=== PATIENT | male | born 1995 | race Caucasian/White ===

== ENCOUNTER 2017-10-19 09:25 | Emergency (ER) | payer MEDICAID, SELFPAY | END 2017-10-19 10:28 | disposition home or self-care (01) | PROVIDERS: Family Provider Family Medicine | DX: J10.1 Influenza due to other identified influenza virus with other respiratory manifestations (principal) | CPT/HCPCS: 71020; 87804; 87880 ==

== ENCOUNTER → 2017-11-25 13:22 | Outpatient (POV) | payer MEDICAID, SELFPAY | PROVIDERS: Family Provider Family Medicine; PCP Family Medicine; Visit Provider Internal Medicine | DX: Z00.00 Encounter for general adult medical examination without abnormal findings (principal) ==

== ENCOUNTER 2017-12-31 10:33 | Outpatient (RCR) | payer MEDICAID, SELFPAY | END 2017-12-31 10:34 | disposition home or self-care (01) | LOC: PT 10:33 | PROVIDERS: Family Provider Family Medicine; PCP Family Medicine; Visit Provider Family Medicine | DX: Z46.89 Encounter for fitting and adjustment of other specified devices (principal) ==

== ENCOUNTER → 2018-01-07 11:17 | Outpatient (POV) | payer MEDICAID, SELFPAY | PROVIDERS: Family Provider Family Medicine; PCP Family Medicine; Visit Provider Physician Assistant Medical | DX: Z00.00 Encounter for general adult medical examination without abnormal findings (principal) ==

== ENCOUNTER → 2018-05-25 10:47 | Outpatient (POV) | payer MEDICAID, SELFPAY | PROVIDERS: Family Provider Family Medicine; PCP Family Medicine; Visit Provider Internal Medicine | DX: Z00.00 Encounter for general adult medical examination without abnormal findings (principal) ==

== ENCOUNTER → 2018-12-08 09:30 | Outpatient (POV) | payer MEDICAID, SELFPAY | PROVIDERS: Visit Provider Internal Medicine | DX: Z00.00 Encounter for general adult medical examination without abnormal findings (principal) ==

== ENCOUNTER → 2019-06-08 09:00 | Outpatient (POV) | payer MEDICAID, SELFPAY | PROVIDERS: Visit Provider Internal Medicine | DX: Z00.00 Encounter for general adult medical examination without abnormal findings (principal) ==

== ENCOUNTER → 2021-01-16 09:09 | Outpatient (CLI) | payer MEDICAID, SELFPAY ==
[2021-01-16 09:42] LABS: ABG Base Excess -2.7 mmol/L (-2.4-2.3); ABG HCO3 21.7 mmhg (22.0-26.0); ABG Oxygen Saturation 97 % (90-100); ABG PCO2 34.2 mmhg (35.0-45.0); ABG PH 7.42 mmol/L (7.35-7.45); ABG PO2 85.1 mmhg (80-100); ABG TCO2 22.8 mmhg (23-27)
[2021-01-16 09:45] LABS: Allen's Test Patient Unable; Oxygen ROOM AIR %; Source Right Radial
== END ==
PROVIDERS: PCP Family Medicine; Visit Provider Internal Medicine Pulmonary Disease
DX: J96.10 Chronic respiratory failure, unspecified whether with hypoxia or hypercapnia (principal); G71.01 Duchenne or Becker muscular dystrophy
CPT/HCPCS: 82803

== ENCOUNTER → 2021-01-23 07:46 | Outpatient (CLI) | payer MEDICAID, SELFPAY | PROVIDERS: PCP Family Medicine; Visit Provider Nurse Practitioner Family | DX: R06.00 Dyspnea, unspecified (principal); R00.0 Tachycardia, unspecified; R00.2 Palpitations; R94.31 Abnormal electrocardiogram [ECG] [EKG]; I42.9 Cardiomyopathy, unspecified; I45.10 Unspecified right bundle-branch block; G71.00 Muscular dystrophy, unspecified | CPT/HCPCS: 93306 ==

== ENCOUNTER → 2021-02-07 13:54 | Outpatient (CLI) | payer MEDICAID, SELFPAY ==
[2021-02-07 14:20] LABS: Basophils # 0.1 K/mm3 (0-0.2); Basophils % 1.4 % (0.1-2.0); Eosinophils # 0.1 K/mm3 (0.0-0.4); Eosinophils % 0.9 % (0.1-12.0); Hematocrit 46.8 % (42.0-52.0); Hemoglobin 15.9 g/dL (14.1-18.0); Lymphocytes # 1.2 K/mm3 (0.7-4.5); Lymphocytes % 20.1 % (10-50); Mean Corpuscular Hemoglobin 31.2 pg (27.0-31.2); Mean Corpuscular Volume 91.7 fl (80-94); Mean Platelet Volume 9.2 fl (7.4-10.4); Monocytes # 0.7 K/mm3 (0.1-1.0); Monocytes % 12.2 % (1.7-9.3); Neutrophils # 3.9 K/mm3 (1.8-7.8); Neutrophils % 65.5 % (37.0-80.0); Platelet Count 246 K/mm3 (142-424); Red Blood Count 5.11 M/mm3 (4.60-6.20)
[2021-02-07 14:47] LABS: Alanine Aminotransferase 22 U/L (12-78); Albumin Level 5.1 g/dl (3.5-5.0); Alkaline Phosphatase 86 U/L (38-126); Anion Gap 12.3 mEq/L (5-15); Aspartate Amino Transferase 33 U/L (17-59); Bilirubin,Indirect 0.4 mg/dL (0.0-0.9); Bilirubin,Total 0.4 mg/dl (0.2-1.3); Bilirubin,Unconjugated 0.4 mg/dL (0.0-1.1); Blood Urea Nitrogen 13 mg/dl (9-20); Calcium 10.2 mg/dl (8.4-10.2); Carbon Dioxide 28 mmol/L (22.0-30.0); Chloride 104 mmol/L (98-107); Estimated Glomerular Filt Rate 588 ml/min (>60); GFR (African American) 712 ML/MIN (>60); Glucose 89 mg/dl (74-100); Potassium 4.3 mmoL/L (3.5-5.1); Sodium 140 mmol/L (136-145); Total Protein,Serum 7.8 g/dl (6.3-8.2)
[2021-02-07 15:53] LABS: Vitamin B12 854 pg/mL (239-931)
[2021-02-07 16:17] LABS: Creatinine,Serum < 0.20 mg/dl (0.66-1.25)
[2021-02-15 16:00] LABS: Vitamin B1 192.6 nmol/L (66.5-200.0)
== END ==
PROVIDERS: Visit Provider Internal Medicine
DX: R06.00 Dyspnea, unspecified (principal); G71.01 Duchenne or Becker muscular dystrophy; I42.9 Cardiomyopathy, unspecified; I45.10 Unspecified right bundle-branch block; R00.0 Tachycardia, unspecified; R00.2 Palpitations; R94.31 Abnormal electrocardiogram [ECG] [EKG]
CPT/HCPCS: 36415; 80048; 80076; 82607; 82746; 84425; 85025

== ENCOUNTER → 2021-09-06 09:55 | Outpatient (CLI) | payer MEDICAID, SELFPAY ==
[2021-09-06 10:37] LABS: Basophils # 0.1 K/mm3 (0-0.2); Basophils % 0.8 % (0.1-2.0); Eosinophils # 0.1 K/mm3 (0.0-0.4); Eosinophils % 0.6 % (0.1-12.0); Hematocrit 35.8 % (42.0-52.0); Hemoglobin 12.2 g/dL (14.1-18.0); Lymphocytes # 0.9 K/mm3 (0.7-4.5); Mean Corpuscular HGB Conc 33.9 g/dL (31.8-35.4); Mean Corpuscular Hemoglobin 32.6 pg (27.0-31.2); Mean Corpuscular Volume 96.1 fl (80-94); Mean Platelet Volume 9.1 fl (7.4-10.4); Monocytes # 0.9 K/mm3 (0.1-1.0); Neutrophils # 7.8 K/mm3 (1.8-7.8); Neutrophils % 80.6 % (37.0-80.0); Platelet Count 319 K/mm3 (142-424); Red Blood Count 3.73 M/mm3 (4.60-6.20); Red Cell Distribution Width 12.6 % (11.5-17.5); White Blood Count 9.7 K/mm3 (4.8-10.8)
[2021-09-06 11:28] LABS: Alanine Aminotransferase 23 U/L (12-78); Albumin Level 4.4 g/dl (3.5-5.0); Albumin/Globulin Ratio 1.5 (1.1-1.8); Alkaline Phosphatase 76 U/L (38-126); Anion Gap 14.9 mEq/L (5-15); Aspartate Amino Transferase 37 U/L (17-59); Bilirubin,Total 0.4 mg/dl (0.2-1.3); Blood Urea Nitrogen 33 mg/dl (9-20); Calcium 9.9 mg/dl (8.4-10.2); Carbon Dioxide 32 mmol/L (22.0-30.0); Chloride 99 mmol/L (98-107); Estimated Glomerular Filt Rate 583 ml/min (>60); GFR (African American) 706 ML/MIN (>60); Globulin 2.9 g/dL (1.3-3.2); Glucose 124 mg/dl (74-100); Potassium 3.9 mmoL/L (3.5-5.1); Sodium 142 mmol/L (136-145); Total Protein,Serum 7.3 g/dl (6.3-8.2)
[2021-09-06 11:34] LABS: C-Reactive Protein 54.8 mg/L (0-4)
[2021-09-06 11:45] LABS: Procalcitonin 0.133 ng/mL (0.0-2.0)
[2021-09-06 12:19] LABS: Erythrocyte Sedimentation Rate 71 mm/hr (0-15)
== END ==
PROVIDERS: Visit Provider Family Medicine
DX: R44.3 Hallucinations, unspecified (principal); G71.01 Duchenne or Becker muscular dystrophy
CPT/HCPCS: 36415; 80053; 84145; 85025; 85651; 86140

== ENCOUNTER → 2022-02-01 11:47 | Outpatient (CLI) | payer MEDICAID, SELFPAY ==
[2022-02-01 12:01] VITALS: BP 116/75; PULSE 83; RESP 20; BMI 16.6
--- NOTE | 2022-02-01 12:57 | HMH.PMCON ---
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 The patient was being managed by the pain clinic in [facility]. However, the physician that was managing the practice moved away. The patient and his mother are in our clinic today seeking management for his current medication regime. Spoke with both of them today in detail. I had a phone consultation with Dr. Trinidad regarding this patient and a plan. The patient is on a plethora of medications. However, the medications we would take over and prescribed are [place] 5 mg 5 mg twice daily G-tube. Gabapentin 625 mg 3 times daily through G-tube. Baclofen milligrams twice daily through G-tube. Will not make any changes in the medications at this time. However, we have agreed to accept the patient for the above medications to be managed. The patient and mother will follow up with Dr. Betancur in 30 days. HPI - Data of Consult Patient: new to practice Consult date: 02/01/22 Requesting Physician: Marlon Rob CRNA Primary Care Provider: Tara Mireles APRN - Consult Narrative Reason for consult: Medication management History of present illness: Mr. Prieto is a 26 year old male CC: Marlon Rob CRNA [facility] History I have reviewed the patient's past medical history: Yes Medical History: Reports:: Cardiomyopathy, Palpitations Denies:: Cancer, Diabetes Mellitus Type 1, Diabetes Mellitus Type 2, MRSA *Have you ever received a pneumonia vaccine?: Yes *Have you received a flu vaccine this season?: No Other Medical History: Reports: Other Laterality Cases: Bilateral: Myringotomy (Ear Tubes) Other Surgeries: Yes: Other (gastrostomy tube) Amputation: No - *Social History Smoking Status: Never smoker Alcohol Intake: never *Occupational Status:: disabled Housing: house Household Members: family *Travel in the last 8 weeks: None Family Hx:: Coronary Artery Disease, Stroke, Diabetes, Heart Attack Meds Home Medications Medication Instructions Recorded Confirmed Type famotidine 20 mg tablet 20 mg PO DAILY 07/25/20 11/21/21 History nutritional supplements 0.08 1 each PO DAILY ml 01/16/21 11/21/21 History gram-2 kcal/mL liquid for tube feed baclofen 10 mg tablet 10 mg PO TID tab 05/16/21 11/21/21 History bisoprolol fumarate 5 mg tablet 5 mg NG-TUBE DAILY tab 10/01/21 11/21/21 History furosemide 20 mg tablet 20 mg NG-TUBE DAILY tab 10/01/21 11/21/21 History gabapentin 250 mg/5 mL oral 400 mg NG-TUBE QID ml 10/01/21 11/21/21 History solution hydrocodone 5 mg-acetaminophen 325 1 tab NG-TUBE Q8H tab 10/01/21 11/21/21 History mg tablet ondansetron HCl 4 mg tablet 4 mg NG-TUBE Q8H PRN 10/01/21 11/21/21 History polyethylene glycol 3350 17 17 g NG-TUBE DAILY 10/01/21 11/21/21 History gram/dose oral powder quetiapine 25 mg tablet 12.5 mg NG-TUBE HS tab 10/01/21 11/21/21 History sacubitril 49 mg-valsartan 51 mg 1 tab NG-TUBE BID #60 tab 10/11/21 11/21/21 Rx tablet Allergies Allergy/AdvReac Type Severity Reaction Status Date / Time No Known Allergies Allergy Verified 11/21/21 11:31 Objective Vital signs: Pulse Resp BP 83 20 116/75 02/01/22 12:01 02/01/22 12:01 02/01/22 12:01 Opioid Risk Tool - Opioid Risk Tool-Male Family hx alcohol abuse: N Family hx illegal drugs: N Family hx rx drug abuse: N Personal hx alcohol abuse: N Personal hx illegal drugs: N Personal hx rx drug abuse: N Age: 16-45 Hx of sexual abuse: N Mental health issues-ADD,OCD,Bipolar, etc: N Hx of depression: N Male Risk Score: 1
== END ==
PROVIDERS: PCP Nurse Practitioner Family; Visit Provider Nurse Anesthetist, Certified Registered
DX: G71.09 Other specified muscular dystrophies (principal); G89.29 Other chronic pain; I42.9 Cardiomyopathy, unspecified; R00.2 Palpitations
CPT/HCPCS: 99202; G0463

== ENCOUNTER → 2022-03-15 12:40 | Outpatient (POV) | payer MEDICAID, SELFPAY ==
[2022-03-15 12:51] VITALS: BP 91/54; PULSE 77; RESP 18; TEMP 36.6; O2SAT 100; BMI 16.6
--- NOTE | 2022-03-15 13:11 | HMH.PAINSOAP ---
[facility] Pain Management SOAP Note Subjective:: Patient is a pleasant 26-year-old white male who we are medically managing for pain and muscle spasms due to muscular dystrophy. We have taken over this patient's medication. He is doing well with his medication except for than hydrocodone. He does not feel like he needs hydrocodone as it is causing increased constipation. Currently is on gabapentin 625 mg 3 times a day through the G-tube, baclofen 10 mg 2 times a day and [place] 5 mg 3 times a day. We will wean him down on the [place]. We will give him 30 pills of hydrocodone for the month. We will continue his gabapentin and baclofen through his G-tube. Objective:: Alert and oriented x3 in no acute distress. He has seen sitting in his wheelchair. Assessment:: Patient with increasing pain with muscular dystrophy due to dystroglycanopathy Plan:: We will renew his medications today. We will continue his gabapentin 625 mg 3 times a day through his G-tube, baclofen 10 mg twice a day through his G-tube and decrease his [place] to 5 mg once a day through the G-tube. We will give a 1 month supply. We will follow-up with him in 1 month. Robbin and drug screen are all appropriate. [facility] History Medical History: Reports:: Cardiomyopathy, Palpitations Denies:: Cancer, Diabetes Mellitus Type 1, Diabetes Mellitus Type 2, MRSA *Have you ever received a pneumonia vaccine?: No *Have you received a flu vaccine this season?: Yes Other Medical History: Reports: Other Laterality Cases: Bilateral: Myringotomy (Ear Tubes) Other Surgeries: Yes: Other (gastrostomy tube) Amputation: No - *Social History Smoking Status: Never smoker Alcohol Intake: never *Occupational Status:: disabled Housing: house Household Members: family *Travel in the last 8 weeks: None Family Hx:: Coronary Artery Disease, Stroke, Diabetes, Heart Attack
== END ==
PROVIDERS: Visit Provider Anesthesiology
DX: G71.09 Other specified muscular dystrophies (principal); G89.29 Other chronic pain
CPT/HCPCS: 99212; G0463

== ENCOUNTER 2022-04-19 00:17 | Emergency (ER) | payer MEDICAID, SELFPAY ==
[2022-04-19] VITALS (11 sets, daily range): BP systolic 81–124; BP diastolic 51–76; PULSE 113–123; RESP 17–18; TEMP 36.8–36.9; O2SAT 96–98; BMI 17.2
[2022-04-19 01:01] LABS: Appearance,Urine CLEAR (Clear); Bilirubin,Urine Negative (Negative); Blood, Urine Negative (Negative); Color,Urine YELLOW (Yellow); Glucose,Urine (UA) Negative (Negative); Ketones,Urine Negative (Negative); Leukocyte Esterase,Urine Negative (Negative); Microscopic, Urine URINE MICROSCOPIC (MICROSCOPIC); Nitrate,Urine Negative (Negative); PH,Urine 6.5 (5.0-8.5); Protein,Urine Negative (Negative); Urobilinogen,Urine 0.2 EU/dl (0.2)
--- NOTE | 2022-04-19 01:40 | HMH.EDNVD ---
ED Disposition Clinical Impression: Acute urinary retention, Muscular dystrophy, Hypokalemia Disposition: Home, Self-Care Condition on Discharge: Good Instructions: DI for Constipation Additional Instructions: call pcp for follow up Referrals: Tara Mireles APRN [Primary Care Provider] - - Critical Care Critical Care Time: No Attestation: On 04/19/22, the high probability of a clinically significant, sudden or life threatening deterioration of the following system(s) required my full and direct attention, intervention and personal management. The time I documented below is in addition to time spent performing reported procedures but includes the following listed in this critical care notation. Medical Decision Making - Medical Records Medical records reviewed: Yes: I reviewed the patient's medical records. - Robbin Inquiry Pt receiving controlled substance: No Vital Signs: 04/19/22 00:18 04/19/22 02:07 04/19/22 02:30 Temperature 98.4 F Temperature Source Oral Pulse Rate 116 H 115 H Pulse Rate [Left Radial] 123 H Respiratory Rate 17 Blood Pressure 102/73 L 107/68 L Blood Pressure [Left Arm] 124/76 Blood Pressure Mean 79 76 Blood Pressure Mean [Left Arm] 92 Blood Pressure Source [Left Arm] Automatic Cuff Blood Pressure Position [Left Arm] Sitting 02 Sat by Pulse Oximetry 96 98 97 Oxygen Delivery Method BiPAP Room Air 04/19/22 03:00 04/19/22 03:30 Temperature Temperature Source Pulse Rate 114 H 115 H Pulse Rate [Left Radial] Respiratory Rate Blood Pressure 100/72 L 93/64 L Blood Pressure [Left Arm] Blood Pressure Mean 78 73 Blood Pressure Mean [Left Arm] Blood Pressure Source [Left Arm] Blood Pressure Position [Left Arm] 02 Sat by Pulse Oximetry 96 97 Oxygen Delivery Method Room Air - Lab Data Lab results reviewed: Yes: I reviewed the patient's lab results. Lab Results 04/19/22 00:59: Urine Color Yellow, Urine Appearance Clear, Urine pH 6.5, Ur Specific [place] 1.010, Urine Protein Negative, Urine Glucose (UA) Negative, Urine Ketones Negative, Urine Blood Negative, Urine Nitrate Negative, Urine Bilirubin Negative, Urine Urobilinogen 0.2, Ur Leukocyte Esterase Negative, Urine WBC Occasional, Urine Bacteria Trace, Urine Mucus 1+ 04/19/22 01:35: WBC 14.3 H, RBC 4.47 L, Hgb 13.8 L, Hct 40.3 L, MCV 90.1, MCH 30.9, MCHC 34.3, RDW 12.2, Plt Count 316, MPV 8.0, Neut % (Auto) 90.1 H, Lymph % (Auto) 2.9 L, [place] % (Auto) 6.5, Eos % (Auto) 0.2, Baso % (Auto) 0.4, Neut # (Auto) 12.9 H, Lymph # (Auto) 0.4 L, [place] # (Auto) 0.9, Eos # (Auto) 0.0, Baso # (Auto) 0.1, Total Counted 100, Neutrophils % (Manual) 93 H, Lymphocytes % (Manual) 5 L, Monocytes % (Manual) 2, Platelet Estimate Normal, RBC Morphology Normal 04/19/22 01:35: Sodium 143, Potassium 2.4 L*, Chloride 101, Carbon Dioxide 23, Anion Gap 21.4 H, BUN 22 H, Creatinine 0.20 L, Estimated Creat Clear 330 H, Estimated GFR 583, Est GFR ( Amer) 706, Glucose 119 H, Calcium 9.7, Total Bilirubin 0.7, AST 59, ALT 28, Alkaline Phosphatase 90, C-Reactive Protein 4.1 H, Total Protein 8.0, Albumin 4.9, Globulin 3.1, Albumin/Globulin Ratio 1.6, Amylase 97 04/19/22 01:35: Lactate 1.1 04/19/22 01:35: Lipase 73 Result diagrams: 04/19/22 01:35 04/19/22 01:35 Orders (Tests/Meds): ED MEDICATIONS Discontinued Medications Generic Name Dose Route Start Last Admin Trade Name Mallory PRN Reason Stop Dose Admin Ondansetron HCl 4 mg 04/19/22 03:32 04/19/22 03:40 Ondansetron 4mg Odt SL 04/19/22 03:33 4 mg ONCE ONE Administration Potassium Chloride 40 meq 04/19/22 02:29 04/19/22 03:32 Potassium Chloride 20meq Tab PO 04/19/22 02:30 Not Given ONCE ONE Potassium Chloride 40 meq 04/19/22 03:30 04/19/22 03:41 Potassium Chloride 20meq/15ml Udc G-TUBE 04/19/22 03:31 40 meq ONCE ONE Administration Sodium Phosphate 133 ml 04/19/22 03:38 04/19/22 03:40 Fleet 133ml Enema RC 04/19/22 03:39 133 ml
[2022-04-19 01:44] LABS: Basophils # 0.1 K/mm3 (0-0.2); Basophils % 0.4 % (0.1-2.0); Eosinophils % 0.2 % (0.1-12.0); Hematocrit 40.3 % (42.0-52.0); Hemoglobin 13.8 g/dL (14.1-18.0); Lymphocytes # 0.4 K/mm3 (0.7-4.5); Lymphocytes % 2.9 % (10-50); Mean Corpuscular HGB Conc 34.3 g/dL (31.8-35.4); Mean Corpuscular Hemoglobin 30.9 pg (27.0-31.2); Mean Corpuscular Volume 90.1 fl (80-94); Monocytes # 0.9 K/mm3 (0.1-1.0); Monocytes % 6.5 % (1.7-9.3); Neutrophils # 12.9 K/mm3 (1.8-7.8); Neutrophils % 90.1 % (37.0-80.0); Platelet Count 316 K/mm3 (142-424); Red Blood Count 4.47 M/mm3 (4.60-6.20); Red Cell Distribution Width 12.2 % (11.5-17.5); White Blood Count 14.3 K/mm3 (4.8-10.8)
[2022-04-19 01:46] LABS: Bacteria,Urine Trace /lpf; Mucus,Urine 1+ /lpf; WBC,Urine Occasional #/hpf (0-3)
[2022-04-19 01:47] LABS: MANUAL DIFFERENTIAL MANUAL DIFFERENTIAL (MANUAL DIFF)
[2022-04-19 01:50] LABS: Lactic Acid 1.1 mmol/L (0.7-2.1)
--- NOTE | 2022-04-19 01:51 | CT_ITS ---
PROCEDURE INFORMATION: Exam: CT Abdomen And Pelvis Without Contrast Exam date and time: 04/19/2022 1:54 AM Age: 26 years old Clinical indication: Other: Acute urinary retention; Prior surgery TECHNIQUE: Imaging protocol: Computed tomography of the abdomen and pelvis without contrast. Radiation optimization: All CT scans at this facility use at least one of these dose optimization techniques: automated exposure control; mA and/or kV adjustment per patient size (includes targeted exams where dose is matched to clinical indication); or iterative reconstruction. COMPARISON: No relevant prior studies available. FINDINGS: Tubes, catheters and devices: Percutaneous gastrostomy tube in place. Liver: Normal. Gallbladder and bile ducts: Cholelithiasis. Pancreas: Normal. Spleen: Normal. Adrenal glands: Normal. No mass. Kidneys and ureters: Mild right hydronephrosis and proximal right hydroureter, likely secondary to extrinsic compression by stool-filled distal sigmoid colon and rectal. Stomach and bowel: Large amount of stool within the distal sigmoid colon and rectal vault, with mild rectal wall edema suggesting fecal impaction. No evidence of obstruction. Few loops of nondilated, gas and fluid-filled small bowel and proximal colon, possibly enteritis/diarrhea. Appendix: No evidence of appendicitis. Intraperitoneal space: Unremarkable. No free air. No significant fluid collection. Vasculature: Unremarkable. No abdominal aortic aneurysm. Lymph nodes: Unremarkable. No enlarged lymph nodes. Urinary bladder: Urinary bladder partially decompressed by Jansen catheter. Reproductive: Unremarkable as visualized. Bones/joints: Abnormal pelvic bony morphology, most compatible with chronic neuromuscular disorder. Partially visualized multilevel posterior Low rods. Soft tissues: See Bones/joints finding. IMPRESSION: 1. Mild right hydronephrosis and proximal right hydroureter, likely secondary to extrinsic compression by stool-filled distal sigmoid colon and rectal. 2. Large amount of stool within the distal sigmoid colon and rectal vault, with mild rectal wall edema suggesting fecal impaction. No evidence of obstruction. 3. Few loops of nondilated, gas and fluid-filled small bowel and proximal colon, possibly enteritis/diarrhea.
--- NOTE | 2022-04-19 01:53 | PC.NURSE ---
3x nursing staff attempted to place IV cath and have not been successful. aware. Lab able to obtains labs after several attempts. Pediatric tubes and culture used to collect.
--- NOTE | 2022-04-19 01:56 | PC.NURSE ---
pt to ct scan
[2022-04-19 01:58] LABS: Chloride 101 mmol/L (98-107); Sodium 143 mmol/L (136-145)
[2022-04-19 02:01] LABS: Alanine Aminotransferase 28 U/L (12-78); Albumin Level 4.9 g/dl (3.5-5.0); Albumin/Globulin Ratio 1.6 (1.1-1.8); Alkaline Phosphatase 90 U/L (38-126); Amylase 97 U/L (30-110); Anion Gap 21.4 mEq/L (5-15); Aspartate Amino Transferase 59 U/L (17-59); Bilirubin,Total 0.7 mg/dl (0.2-1.3); Blood Urea Nitrogen 22 mg/dl (9-20); Calcium 9.7 mg/dl (8.4-10.2); Carbon Dioxide 23 mmol/L (22.0-30.0); Creatinine Clearance Estimated 330 mL/min (50-200); Estimated Glomerular Filt Rate 583 ml/min (>60); GFR (African American) 706 ML/MIN (>60); Globulin 3.1 g/dL (1.3-3.2); Glucose 119 mg/dl (74-100)
[2022-04-19 02:02] LABS: Lipase 73 U/L (23-300)
[2022-04-19 02:07] LABS: C-Reactive Protein 4.1 mg/L (0-4)
[2022-04-19 02:10] LABS: Potassium 2.4 mmoL/L (3.5-5.1)
--- NOTE | 2022-04-19 02:10 | PC.NURSE ---
critical potassium reported to Dr. Tyler
[2022-04-19 03:15] LABS: Lymphocytes % 5 % (10-50); Monocytes % 2 % (2-9); Neutrophils % 93 % (42-76); Total Cells Counted 100
[2022-04-19 03:16] LABS: Platelet Estimate Normal; RBC Morphology Normal
--- NOTE | 2022-04-19 05:51 | PC.NURSE ---
Tijerina care and education to mother. Educated on the d/c of tijerina cath in 24 hr.
--- NOTE | 2022-04-19 05:52 | PC.NURSE ---
ENEMA ADMINISTERED WITH LARGE AMOUNT OF STOOL NOTED. PT TOLERATED WELL.
--- NOTE | 2022-04-19 05:57 | PC.NURSE ---
INSTRUCTION FOR CATHETER CARE AND REMOVAL GIVEN TO MOTHER- WHO ACTS PATIENTS CAREGIVER.
== END 2022-04-19 06:02 | disposition home or self-care (01) ==
PROVIDERS: Emergency Provider Emergency Medicine; PCP Nurse Practitioner Family
DX: K59.00 Constipation, unspecified (principal); R33.8 Other retention of urine; G71.00 Muscular dystrophy, unspecified; E87.6 Hypokalemia
CPT/HCPCS: 36415; 51702; 74176; 80053; 81001; 82150; 83605; 83690; 85007; 85025; 86140; 87040; 99284

== ENCOUNTER → 2022-06-04 10:22 | Outpatient (CLI) | payer MEDICAID, SELFPAY ==
--- NOTE | 2022-06-04 10:26 | XR_ITS ---
FINAL REPORT CLINICAL HISTORY: CHRONIS CONSTIPATION FINDINGS: Flat and upright views of the abdomen were obtained. There is a nonobstructive bowel gas pattern. There is a large amount of retained stool in the rectum which is worrisome for fecal impaction/ constipation. There is no free air. There is no abnormal calcification. Spinal rods are present. A presumed G-tube or J tube is present. IMPRESSION: Findings are worrisome for fecal impaction/constipation. Reviewed, Interpreted and Dictated by Yosef Whitehead III, MD Transcribed by Irlanda Ferrell Authenticated and [facility]
== END ==
PROVIDERS: PCP Nurse Practitioner Family; Visit Provider Physician Assistant Medical
DX: K59.09 Other constipation (principal)
CPT/HCPCS: 74019

== ENCOUNTER → 2022-06-17 13:14 | Outpatient (CLI) | payer MEDICAID, SELFPAY ==
--- NOTE | 2022-06-17 13:15 | CA_ITS ---
APPROVED REPORT EXAM: Comprehensive 2D, Doppler, and color-flow Echocardiogram Internal Grinder: Juliana Christine RVT Ht: 5 ft 1 in Wt: 98lbs BSA: 1.40 BP: 78/45 mmHg Indications: CM,MUSCUALR DYSTROPHY,RBBB,ABN EKG TDS-PT SCANNED IN MOTORIZED W/C,LIMITED WINDOWS,BEST EXAM POSSIBLE 2D Dimensions LVOT 1.77 cm (M/F) 1.5-2.5 M-Mode Dimensions RVDd 1.21 cm (0.9-2.6) LA Diam 1.73 cm (1.9-4.0) LVDd 4.37 cm (3.5-5.7) Ao Diam 2.39 cm (2.0-3.7) LVDs 3.27 cm (3.5-5.7) IVSd 0.43 cm (0.6-1.1) PWd 0.67 cm (0.6-1.1) EF (Teich) 49.90% FS 25.20% EDV (Teich) 86.30 mL ESV (Teich) 43.20 mL LV Diastology E Decel Time 150.00 (160-240 msec) E/A Ratio 1.4 Aortic Valve AO Peak GR. 2.40 mmHg Mitral Valve MV E Max Berny. 104.00 (40-130 cm/s) MV A Velocity 73.00 (40-130 cm/s) E/A Ratio 1.43 MV Decel. Time 150.00 (160-240 ms) MV PHT 44.00 ms Pulmonary Valve PV Peak Velocity 73.00 (50-150 cm/s) Left Ventricle Technically very limited and difficult study, valvular structures are not well visualized. Left atrium appears to be normal size, left ventricle appears to be normal, estimated ejection fraction 50% in the obtained views. Diastolic parameters are inconclusive. Right Ventricle Right atrium and right ventricle are normal size and contractility. Aortic Valve Aortic valve is grossly normal. Mitral Valve Mitral valve is poorly visualized. Tricuspid Valve Tricuspid valve is poorly visualized. Pulmonic Valve Pulmonic valve is poorly visualized. Great Vessels Aortic root is normal size. Inferior vena cava is mildly dilated without significant inspiratory collapse. Pericardium No significant pericardial effusion noted. Conclusion 1. Technically extremely difficult and poor study, valvular structures are poorly visualized. Normal left ventricular size, estimated ejection fraction is probably 50% with no regional wall motion abnormality. 2. No significant pericardial effusion. 3. Inferior vena cava is mildly dilated without significant inspiratory collapse. Electronically signed by : Maikel Ballard MD 06/17/2022 20:39:48
== END ==
PROVIDERS: PCP Nurse Practitioner Family; Visit Provider Internal Medicine
DX: I42.9 Cardiomyopathy, unspecified (principal); I45.10 Unspecified right bundle-branch block; G71.01 Duchenne or Becker muscular dystrophy; R94.31 Abnormal electrocardiogram [ECG] [EKG]
CPT/HCPCS: 93306

== ENCOUNTER → 2023-01-06 10:34 | Outpatient (CLI) | payer MEDICAID, SELFPAY ==
--- NOTE | 2023-01-06 10:40 | XR_ITS ---
FINAL REPORT CLINICAL HISTORY: chronic constipation COMPARISON: 06/04/2022 FINDINGS: A single view of the abdomen was obtained. There is a large amount of retained stool in the rectum which measures up to 11 cm. No dilated loops of bowel are seen proximal to the rectum. A gastrostomy tube is in place. Fusion hardware is noted of the spine. IMPRESSION: 1. Nonobstructive bowel gas pattern. 2. Large amount of retained stool in the rectum measuring up to 11 cm. Reviewed, Interpreted and Dictated by Won Vazquez MD Transcribed by Donna Cameron Authenticated and . [facility]
== END ==
PROVIDERS: PCP Nurse Practitioner Family; Visit Provider Physician Assistant Medical
DX: K59.09 Other constipation (principal)
CPT/HCPCS: 74018

== ENCOUNTER → 2023-06-24 11:00 | Outpatient (CLI) | payer MEDICAID, SELFPAY ==
--- NOTE | 2023-06-24 11:02 | CA_ITS ---
APPROVED REPORT EXAM: Comprehensive 2D, Doppler, and color-flow Echocardiogram Oven Baker: Meagan Wells, RCS, RVS Ht: 5 ft 1 in Wt: 101lbs BSA: 1.41 BP: 101/75 mmHg Indications: CM, RBBB, Muscular dystrophy-WC bound, Palpitations Echo Enhancing Agent Comments: Lmited window due to patient factors. 2D Dimensions Aortic Root 2.99 cm M: 3.1 - 3.7 LA Volume 7.90 mL Left Atrium 2.27 cm M: 3.0 - 4.0 LA Volume Index 5.60 mL/m2 (M/F) 16-34 LVOT 1.97 cm (M/F) 1.5-2.5 M-Mode Dimensions RVDd 0.86 cm (0.9-2.6) LVDd 4.86 cm (3.5-5.7) Ao Diam 3.28 cm (2.0-3.7) LVDs 3.94 cm (3.5-5.7) IVSd 0.62 cm (0.6-1.1) PWd 0.64 cm (0.6-1.1) EF (Teich) 39.00% EPSs 1.13 cm FS 18.90% EDV (Teich) 110.70 mL TAPSE 2.02 (<1.7) ESV (Teich) 67.50 mL LV Diastology E Decel Time 167.00 (160-240 msec) E/A Ratio 1.57 MED E' 10.70 (< 7 cm/sec) MED A' 9.20 cm/s E'/MED E' Ratio 9.07 (>14) LAT E' 14.00 (<10 cm/sec) LAT A' 9.20 cm/s E/LAT E' Ratio 6.94 (>14) Aortic Valve LVOT Max 86.00 (70-110 cm/s) LVOT VTI 15.60 cm AoV Peak Berny. 83.00 (50-130 cm/s) AO Peak GR. 2.70 mmHg AO Mean GR. 1.40 (<5 mmHg) AO VTI 14.24 (18-25 cm) XAVIER (VTI) 3.34 (2.5-4.5 cm2) Mitral Valve MV A Velocity 62.00 (40-130 cm/s) E/A Ratio 1.57 MV Decel. Time 167.00 (160-240 ms) Pulmonary Valve PV Peak Velocity 73.00 (50-150 cm/s) Left Ventricle The left ventricle is normal size. The left ventricular systolic function is normal. The left ventricular ejection fraction is within the normal range. There is normal left ventricular wall thickness. There is normal LV segmental wall motion. The left ventricular diastolic function is normal. LVEF is 55% Right Ventricle The right ventricle is normal size. The right ventricular systolic function is normal. Atria The left atrial cavity is small. The right atrium size is normal. Aortic Valve The aortic valve opens well. There is no aortic valvular stenosis. No aortic regurgitation is present. Mitral Valve The mitral valve is normal in structure. No evidence of mitral valve stenosis. Trace Mitral Regurgitation. Tricuspid Valve The tricuspid valve leaflets are thin and pliable. Trace tricuspid regurgitation. There is insufficient TR jet to estimate RVSP. Pulmonic Valve The pulmonary valve is normal in structure. Trace pulmonic regurgitation. Great Vessels The aortic root is normal in size. The ascending aorta is not well visualized. IVC is normal in size and collapses >50% with inspiration. Pericardium There is no pericardial effusion. Other Information Study Quality: Technically Difficult Conclusion This is a technically difficult study due to inability to position the patient. Normal biventricular systolic function. No significant valvular disease. Electronically signed by : Arlene Cohen, 06/24/2023 21:53:42
== END ==
PROVIDERS: PCP Nurse Practitioner Family; Visit Provider Internal Medicine
DX: I42.9 Cardiomyopathy, unspecified (principal)
CPT/HCPCS: 93306

== ENCOUNTER 2023-11-17 10:13 | Outpatient (CLI) | payer MEDICAID, SELFPAY ==
[2023-11-17 11:18] LABS: Hemoglobin A1C 4.8 % (4.0-6.0)
== END 2023-11-17 23:59 ==
LOC: LAB 10:14
PROVIDERS: PCP Family Medicine; Visit Provider Physician Assistant Medical
DX: G71.01 Duchenne or Becker muscular dystrophy (principal); K31.84 Gastroparesis; R73.9 Hyperglycemia, unspecified
CPT/HCPCS: 36415; 83036

== ENCOUNTER 2024-09-27 09:22 | Outpatient (CLI) | payer MEDICAID, SELFPAY ==
--- NOTE | 2024-09-27 09:34 | CA_ITS ---
APPROVED REPORT EXAM: Comprehensive 2D, Doppler, and color-flow Echocardiogram Mortar Man: Liz Galeano RT(R) Ht: 5 ft 1 in Wt: 125lbs BSA: 1.55 BP: 124/82 mmHg Indications: SOA, palpitations, muscular dystrophy. 2D Dimensions LVEF (Awad's) 65.30 % M: 52 - 72 LV Volume 32.60 mL M: 62 - 150 LV Volume Index 21.0 mL/m2 M: 34 - 74 EF AP4 60.70 % EF AP2 73.0 % EF BP 65.3 % GL Strain -14.3 % M-Mode Dimensions RVDd 1.51 cm (0.9-2.6) LVDd 3.84 cm (3.5-5.7) LVDs 2.62 cm (3.5-5.7) IVSd 0.73 cm (0.6-1.1) PWd 0.64 cm (0.6-1.1) EF (Teich) 60.50% FS 31.80% EDV (Teich) 63.50 mL ESV (Teich) 25.10 mL Left Ventricle The left ventricle is normal size. The left ventricular systolic function is normal. The left ventricular ejection fraction is within the normal range. There is increased LV wall thickness. There is normal LV segmental wall motion. The left ventricular diastolic function is normal. LVEF is 55%. Right Ventricle The right ventricle is normal size. The right ventricular systolic function is normal. Atria The left atrial cavity is small. There is an external compression by a solid mass into the left atrial cavity. The right atrium size is normal. There is no Doppler evidence of interatrial shunt. Aortic Valve The aortic valve opens well. There is no aortic valvular stenosis. Trace aortic regurgitation. Mitral Valve The mitral valve is normal in structure. No evidence of mitral valve stenosis. There is no mitral valve regurgitation noted. Tricuspid Valve The tricuspid valve leaflets are thin and pliable. Trace tricuspid regurgitation. There is insufficient TR jet to estimate RVSP. Pulmonic Valve The pulmonary valve is normal in structure. Trace pulmonic regurgitation. Great Vessels The aortic root is normal in size. The ascending aorta is not well-visualized. IVC is normal in size and collapses >50% with inspiration. Pericardium There is no pericardial effusion. Other Information Study Quality: Fair Conclusion Normal biventricular systolic function. No significant valvular stenosis or regurgitation. The left atrial cavity is small. There is an external compression by a solid mass into the left atrial cavity. Review of prior TTE and CTA abdomen/pelvis from 2021 demonstrates the left atrial compression is chronic, and is likely due to spinal deformity with vertebral compression into the left atrium. However, other etiologies of left atrial compression cannot be entirely ruled out. Electronically signed by : Arlene Cohen MD 09/27/2024 11:15:53
== END 2024-09-27 23:59 | disposition home or self-care (01) ==
PROVIDERS: PCP Family Medicine; Visit Provider Internal Medicine
DX: I42.8 Other cardiomyopathies (principal); R00.2 Palpitations; R00.0 Tachycardia, unspecified; R94.31 Abnormal electrocardiogram [ECG] [EKG]; I45.10 Unspecified right bundle-branch block; R06.00 Dyspnea, unspecified; G71.01 Duchenne or Becker muscular dystrophy
CPT/HCPCS: 93270; 93306

== ENCOUNTER 2024-09-29 14:21 | Outpatient (CLI) | payer MEDICAID, SELFPAY ==
--- NOTE | 2024-09-29 14:24 | CA_ITS ---
FINAL REPORT TECHNIQUE: Color Doppler, duplex Doppler and beebe scale sonography of the bilateral neck vasculature was performed. Velocities were measured in the carotid arteries. Stenosis evaluation based on velocity criteria. CLINICAL HISTORY: PT HAS MUSCULAR DYSTROPHY,PT HEARS HEARTBEAT IN HIS RIGHT EAR COMPARISON: None FINDINGS: The peak systolic velocity of the right common carotid artery is 90 cm/sec and internal carotid artery 87 cm/sec. The diastolic velocity in the internal carotid artery is 34 cm/sec. The ICA/CCA ratio is 1.07. Visually, no significant plaque is seen. These findings are consistent with less than 50% stenosis. The external carotid artery is patent. The right vertebral artery was not visualized secondary to patient's positioning in a motorized chair. The peak systolic velocity of the left common carotid artery is 114 cm/sec and internal carotid artery 94 cm/sec. The diastolic velocity in the internal carotid artery is 33 cm/sec. The ICA/CCA ratio is 0.8. Visually, no significant plaque is seen. These findings are consistent with less than 50% stenosis. The external carotid artery is patent. The left vertebral artery was not visualized secondary to patient positioning in a motorized chair. IMPRESSION: No evidence of significant carotid stenosis. The vertebral arteries were not visualized secondary to patient positioning in a motorized chair. If indicated, CTA or catheter angiography could further evaluate. Reviewed, Interpreted and Dictated by Yosef Whitehead III, MD Transcribed by Gisella Mcgowan Authenticated and [facility]
--- OUTSIDE RECORDS SUMMARY | 2024-09-29 14:24 | XMS_ITS | Encounter Summary ---
Author Organization [facility] Address [address] [place] [address] Care Team Providers Care Hosiery Pairer Name Role Phone Rhys Butts MD Primary Care Provider + Reason for Visit * Reason Onset Date Comments Med Refill 04/18/2024 Encounter Details Date Type Department Care Team (Late st Contact Info) Description 04/18/2024 Refill [facility] [address] [place] [address] Rhys Butts MD [address] [place] [address] Anxiety about health (Primary Dx) Social History Tobacco Use Types Packs/Day Years Used Date Smoking Tobacco: Never Smokeless Tobacco: Never Alcohol Use Standard Drinks/Week Comments Never 0 (1 standard drink = 0.6 oz pur e alcohol) Abuse Screen Answer Date Recorded Unsafe at Home or Work/School Not on file Feels Threatened by Someone? Not on file Does Anyone Keep You from Co ntacting Others or Doint Things Outside the Home? Not on file 12/02/2023 Physical Sign of Abuse Present Not on file 0 12/02/2023 Housing Stability Answer Date Recorded Current Living Arrangements Not on file 11/20 Potentially Unsafe Housing Conditions Not on rashad e 12/02/2023 Family and Community Support Answer Toan e Recorded Help with Day-to-Day Activities Not on file 12/02/2023 Lonely or Isolated Not on file 12/02/2023 Employment Answer Date Recorded Do you want help finding or keeping work or a rudi b? Not on file 12/02/2023 Disabilities Answer Date Recorded Concentrating, Remembering, or Making Decisions Difficulty Not on file 12/02/2023 Doing Errands Independently Difficulty Not on fi le 12/02/2023 Education Answer Date Recorded Help with school or training? Not on file Preferred Language Not on file 12/02/2023 PHQ-2 Answer Date Recorded Retired PHQ-9: Brief Depression Severity Measure Score 0 01/05/2024 Sex and Gender Information Value Date Recorded Sex Assigned at Not on file Legal Sex Male 9:36 AM EST Gender Identity Not on file Sexual Orientation Not on file documented as of this encounter Plan of Treatment Not on file documented as of this encounter Visit Diagnoses Diagnosis Anxiety about health- Primary documented in this encounter Care Teams Hosiery Pairer Relationship Specialty Start Date End Date Rhys Butts MD [address] [place] [address] PCP - General Family Medicine 01/05/24 documented as of this encounter
--- OUTSIDE RECORDS SUMMARY | 2024-09-29 14:24 | XMS_ITS | Encounter Summary ---
Author Organization [facility] Address [address] [place] [id number] Care Team Providers Care Dentistry Professor Name Role Phone Unavailable Primary Care Provider Unavailabl e Encounter Details Date Type Department Care Team (Late st Contact Info) Description 01/27/2023 12:00 PM EDT Evaluation [facility] OP Occupational Therapy [address] [facility] [address] [place] [address] Tara Mireles, RAZA [address] [place] [address] [place] [id number] Leanne Cardenas, OTR/L [address] [facility] [address] [place] [address] Muscular dystrophy (HCC) (Primary Dx) Social History Tobacco Use Types Packs/Day Years Used Date Smoking Tobacco: Never Assessed Sex and Gender Information Value Date Recorded Sex Assigned at Not on file Legal Sex Male 12:47 PM CDT Gender Identity Not on file Sexual Orientation Not on file documented as of this encounter Progress Notes * Leanne Cardenas OTR/L - 01/27/2023 12:00 PM EDT Images from the original note were not included. OUTPATIENT THERAPY SERVICES SEATING AND MOBILITY EVAL 01/27/2023 Time In: 12:02 Time Out: 13:00 Austin Prieto 1995 presents today via audio and video telehealth for a wheelchair and adaptive shower equipment evaluation. Referring Physician: No ref. provider found Austin Prieto has the following health diagnosis that impact his mobility for MRADLs: Muscular Dystrophy, Vent dependence, Wheelchair dependence, incontinent of bowel and bladder HEIGHT:5'2 WEIGHT: 91lbs Contraindications/Precautions: vent dependent Social History: Lives with family mother, step dad, sister Home Environment one level Wheelchair Assessable Rooms: yes Current Functional Status: Dependent Equipment: Wheelchair reclining and Hospital bed, feeding tube, Subjective Patient has had a decline in status since receiving current complex power wheelchair. When he received the current complex power wheelchair, patient had sufficient pincer grasp strength and endurancefor activity of driving the power wheelchair. Parents and patient now report patient is unable to drive power wheelchair for functional periods of time, often relying on caregiver assistance. Mother reports having to readjust Austin's hand multiple times per day in order for him to acquire proper placement to drive the power wheelchair. Family reports that all of Austin's current energy and endurance for task goes to driving his power wheelchair. Family is requesting Austin be considered for receiving a manual tilt in space as his disease has progressed significantly in the last 3 years since receiving the complex power wheelchair. Austin is vent dependent. Austin requires total assistance for all MRADLs. Austin enjoys drawing and playing video games however unable to complete currently due to fatigue from driving his power wheelchair. Family wishes for Austin to have good quality of life as his disease continues to progress. The manual tilt in space would allow for Austin to conserve energy to complete the tasks he enjoys during his remaining time. The manual tilt in space is also ergonomically more appropriate for patients who are dependent on their caregiver's for all aspects of daily life which Austin has now transitioned into this status. Their current shower chair is uncomfortable for Austin and meant for toileting as well as showering. Austin is incontinent of bowel and bladder and scheduled for a colostomy in the near future and therefore unable to use the commode/bathroom with assistance of shower chair any longer 2/2 disease p rogression. The mesh sling for the Wallace Wave shower chair will cradle Austin in a more comfortable position and allow for safe showering with caregiver total assistance. Pain Current: 0/10 Can increase 8/10 B LEs Objective Cognitive/Visual Status Status Comments Memory Skills intact Problem Solving intact Judgement intact Attention/Concentration intact Vision intact Hearing intact Other intact ADL Status Status Comments Dressing Dependent Bathing Dependent Feeding Dependent Grooming/Hygiene Dependent Toileting Dependent Meal Prep Dependent Home Management Dependent Bowel/Bladder Management Continent/Incontinent Comments Bladder incontinent Bowel incontinent Cardiac Status: intact Respiratory Status: intact Sensation: impaired History of Pressure Ulcer: no Current Pressure Ulcer: no Strength and ROM RIGHT ROM LEFT ROM RIGHT MMT LEFT MMT Hip Flexion Unable Unable 0/5 0/5 Hip Abduction Unable Unable 0/5 0/5 Hip Adduction Unable Unable 0/5 0/5 Knee Extension Unable Unable 0/5 0/5 Knee Flexion Unable Unable 0/5 0/5 Dorsiflexion Unable Unable 0/5 0/5 Plantar Flexion Unable Unable 0/5 0/5 Shoulder Flexion Unable Unable 0/5 0/5 Shoulder Abduction Unable Unable 0/5 0/5 Shoulder IR Unable Unable 0/5 0/5 Shoulder ER Unable Unable 0/5 0/5 Elbow Flexion Unable Unable 0/5 0/5 Elbow Extension Unable Unable 0/5 0/5 Wrist Flexion Unable Unable 0/5 0/5 Wrist Extension Unable Unable 0/5 0/5 Light pincer grasp observed on right dominant hand Mobility Skills Assist Comments Sit to stand unable Bed? W/C Transfer Total A W/C? commode Transfer n/a Ambulation unable Wheelchair bound Manual W/C unable Impaired UE strength and AROM Operate Power W/C With Standard Joystick Operate Power W/C with Alternative Controls Weight Shifts Hours Spent in W/C Each day 12+ Clinical Criteria/Algorithm Summary 1. What medical conditions limit your patient's ability to participate in Mobility Related Activities of Daily Living (MRADLs) in their home? Austin Prieto has the following health diagnosis that impact his mobility for MRADLs: Muscular Dystrophy, Vent dependence, Wheelchair dependence, incontinent of bowel and bladder 2. List what MRADLs in the home are impaired due to your patient's mobility limitation. Dressing, Bathing, Toileting, Grooming, Meal Prep, Home Management 3. Why can't an appropriately fitted cane or walker meet your patient's mobility needs at home? Austin Pireto cannot use cane or walker due to overall weakness and debility. Austin Prieto would benefit from a manual tilt in space to complete MRADLs safely and efficiently. 4. Why can't a scooter (POV) meet your patient's mobility needs in the home? Austin Prieto has UE and trunk weakness and therefore cannot manage the tiller system of the POV. Austin Prieto has LE weakness and cannot safely transfer on or off the POV. Inadequate space inside thehome/apt to manage the turning radius of the POV. 5. Is the patient willing and does the patient have the physical and mental abilities to safely operate a power wheelchair in the home? no Austin Prieto is willing and has the physical and mental abilities to operate a power chair safely in home. 6. Why can't an optimally configured manual wheelchair meet your patient's mobility needs in the home? Austin cannot self propel an optimally configured manual wheelchair. A manual tilt in space wheelchair is most appropriate for positioning needs and for functional mobility for MRADLs 7. If the patient does not require custom or powered seating components, can they safely transfer to and from the power wheelchair? Austin will require custom seating and positioning components Recommendations/Goals Manual Wheelchair X Manual Tilt in Space POV Power Wheelchair Positioning System Seating Additional Comments Austin Prieto is being evaluated for a manual tilt in space wheelchair. Austin Prieto is entirely wheelchair dependent for all MRADLs within the home and therefore not functional in the ability to utilize walkers, canes or crutches. Austin Prieto lacks cognitive ability to operate a power wheelchair or scooter. A standard/lightweight/high strength lightweight, or optimally configured manual wheelchair is not appropriate as Austin Prieto is unable to self propel any manual wheelchair due to cognitive impairment and UE/LE weakness/flexion contractures. Austin Prieto lacks core stability and proprioception to maintain upright posture in a standard/lightweight or optimally configured manual wheelchair and therefore requires tilting function. Austin Prieto will use tilt in space wheelchair for toileting, bathing, feeding, grooming, dressing with assistance by his caregiver. A tilt in space wheelchair will allow for hips to sit back in chair and improve Austin Prieto???s posture and reduce risk for low back pain as well as offload pressure to reduce risk for pressure sores in absence of ability to functionally perform pressure relief. Austin Prieto is unable to self propel any type of manual wheelchair and therefore will require a tilt in space wheelchair that can be operated by caregiver. Caregiver is able and willing to operate tilt in space wheelchair 12/05. Austin Prieto is unable to functionally weight shift to offload pressure and needs a skin protection custom positioning seat cushion to prevent pressure sores as well as a positioning back to help with poor posture and accommodate for weak core musculature. Austin Prieto needs a head rest due to poor posture and decreased neck muscle strength. I am requesting a Wallace Wave for Austin???s use in the home with the features and accessories described below. The Wave is designed for bathing and/or showering in instances of disease, injury, or disability. This device is designed and manufactured as durable medical equipment. This device provides for alleviation and compensation in the case of disability due to injury or disease. Specifically, Austin requires consistent, regular and thorough cleaning in order to prevent infection of the perineal area. Due to his neurological diagnoses of muscular dystrophy and complete dependency on caregiver status diagnosis, Austin is unable to bathe or shower without being seated, and additionallyshahab is unable to transfer to and from a tub. Austin is at risk for injury and infection should he continue to be bathed in the current manner. For these reasons, this device with accessories as specified is medically necessary. The intended use is not for self-help, convenience, or personal comfort. The provision of a Wave for Austin is consistent for clients with his medical condition and levelof disability. Therefore I request funding for this medically necessary device. The Wave provides the supports and positioning options that Austin needs to sit independently and safely while in the bathtub or shower and provides the additional positioning options necessary for cleaning all parts of his body to provide effective hygiene health. The Wave has incremental adjustments of the backrestangle, plus incremental adjustments of seat angle that are independent of the adjustment of the calf rest angle. The adjustment range of seat, back and various accessories will allow Austin???s caregivers to position him with stability and in an appropriate position for proper hygiene care. Meeting Austin???s needs for adequate postural support using the angle adjustments of seat and calfrest will also effectively reduce tone and promote relaxation while Austin is in the bath chair, enablingbetter care. These features are unique to Wallace???s Wave, and will enable Austin to be positioned with appropriate hip and knee flexion to reduce his spastic extensor tone and improve his tolerancefor the seated position during bathing. Evaluation Only. Please see MD order documented in this encounter Plan of Treatment Not on file documented as of this encounter Visit Diagnoses Diagnosis Muscular dystrophy (HCC)- Primary Hereditary progressive muscular dystrophy documented in this encounter
--- OUTSIDE RECORDS SUMMARY | 2024-09-29 14:24 | XMS_ITS | Encounter Summary ---
Author Organization [facility] Address [address] [place] [address] Care Team Providers Care Systematic Theology Professor Name Role Phone Rhys Butts MD Primary Care Provider + Reason for Visit * Reason Onset Date Comments Med Refill 05/24/2024 Encounter Details Date Type Department Care Team (Late st Contact Info) Description 05/24/2024 Refill [facility] FAMILY MEDICINE [address] [place] [address] Rhys Butts MD [address] [place] [address] Chronic pain syndrome; Chronic nonmalignant pain; Duchenne muscular dystrophy Social History Tobacco Use Types Packs/Day Years [...] as of this encounter Visit Diagnoses Diagnosis Chronic pain syndrome 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
--- OUTSIDE RECORDS SUMMARY | 2024-09-29 14:24 | XMS_ITS | Encounter Summary ---
Author Organization [facility] Address [address] [place] [address] Care Team Providers Care Brand Marketing Manager Name Role Phone Rhys Butts MD Primary Care Provider + Reason for Visit * Reason Onset Date Comments Med Refill 07/22/2024 Encounter Details Date Type Department Care Team (Late st Contact Info) Description 07/22/2024 Refill [facility] FAMILY MEDICINE [address] [place] [address] Rhys Butts MD [address] [place] [address] Chronic pain syndrome; Chronic nonmalignant [...] dystrophy documented in this encounter Care Teams Brand Marketing Manager Relationship Specialty Start Date End Date Rhys Butts MD [facility] [place] [address] PCP - General Family Medicine 01/05/24 documented as of this encounter
--- OUTSIDE RECORDS SUMMARY | 2024-09-29 14:24 | XMS_ITS | Encounter Summary ---
Author Organization [facility] Address [address] [place] [address] Care Team Providers Care Senior Maintenance Mechanic Name Role Phone Rhys Butts MD Primary Care Provider + Reason for Visit * Reason Onset Date Comments Med Refill 02/24/2024 Encounter Details Date Type Department Care Team (Late st Contact Info) Description 02/24/2024 Refill [facility] FAMILY MEDICINE [address] [place] [address] Rhys Butts MD [address] [place] [address] Chronic pain syndrome (Primary Dx); Chronic nonmalignant pain; Duchenne muscular dystrophy Social [...] this encounter Visit Diagnoses Diagnosis Chronic pain syndrome- Primary 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
--- OUTSIDE RECORDS SUMMARY | 2024-09-29 14:24 | XMS_ITS | Encounter Summary ---
Author Organization Healthcare Address [address] [place], [place] [id number] Care Team Providers Care Regional Merchandising Manager Name Role Phone Rhys Butts MD Primary Care Provider Encounter Details Date Type Department Care Team (Latest Contact Info) Description 11/05/2023 Travel Social History Tobacco Use Types Packs/Day Years Used Date Smoking Tobacco: Never Passive Smoke Exposure: Never Smokeless Tobacco: Never Alcohol Use Standard Drinks/Week Comments No 0 (1 standard drink = 0.6 oz pur e alcohol) PHQ-2 Answer Date Recorded Patient Health Questionnaire-2 Score 0 11/05/2023 CAGE ASSESSMENT Answer Date Recorded Cage unable to access Not on file 05/14/2023 Cage max number of drinks Not on file 2022 Cage Beverages a week Not on file 05/14/2023 Have you ever felt you should CUT down on your d rinking? 0 05/14/2023 Have you been ANNOYED by people criticizing your drinking? 0 05/14/2023 Have you felt GUILTY about your drinking? 0 05/14/2023 Have you had a drink first t eder in the morning ([employer]PECT[employer]) to steady your nerves or to get rid of a hangover? 0 05/14/2023 CAGE Questionnaire Score 0 023 PHQ-2A Answer Date Recorded Patient Health Questionnaire-2 Score 0 06/03/2023 Sex and Gender Information Value Date Recorded Sex Assigned at Not on file Legal Sex Male 7:07 PM EDT Gender Identity Not on file Sexual Orientation Not on file documented as of this encounter Plan of Treatment Not on file documented as of this encounter Visit Diagnoses Not on filedocumented in this encounter Additional Health Concerns Assessment Noted Time A fall risk assessment has been complete d for the patient 11/05/2023 2:34 PM EST A Body Mass Index follow-up plan has been documented for the patient 11/07/2023 1:10 PM EST documented as of this encounter Care Teams Regional Merchandising Manager Relationship Specialty Start Date End Date Rhys Butts MD [address] [place] [address] PCP - General 03/02/21 documented as of this encounter
--- OUTSIDE RECORDS SUMMARY | 2024-09-29 14:24 | XMS_ITS | Encounter Summary ---
Author Organization Healthcare Address [address] [place] [address] Care Team Providers Care Blow Mold Operator Name Role Phone Rhys Butts MD Primary Care Provider [phone] Reason for Visit * Consultation (Routine) - Closed Specialty Diagnoses / Procedures Referred By Contzaid t Referred To Contact Nutrition Diagnoses Duchenne's muscular dystrophy (CMS/HCC) Gastroparesis Encounter for care related to feeding tube [facility] [address] [place] [address] Phone: tel: fax: [facility] [address] [place] [address] Phone: tel: fax: Referral ID Status Reason Start Date Expiration Date V isits Requested Visits Authorized [id number] Closed Specialty Services Required 11/05/2023 05/06/2025 1 1 Encounter Details Date Type Department Care Team (Late st Contact Info) Description 01/28/2024 2:30 PM EDT Clinical Support [facility] [address] [place] [address] Jasmina Bustamante, RD [address] [facility] [address] [place] [address] Duchenne's muscular dystrophy (CMS/HCC); Gastroparesis; Encounter for care related to feeding tube Social History Tobacco Use Types Packs/Day Years [...] drink first t eder in the morning (EYE-DIESEL PILE DRIVER OPERATOR) to steady your nerves or to get rid of a hangover? 0 05/14/2023 CAGE Questionnaire Score 0 023 PHQ-2A Answer Date Recorded Patient Health Questionnaire-2 Score 0 06/03/2023 Sex and Gender Information Value Date Recorded Sex Assigned at Not on file Legal Sex Male 7:07 PM EDT Gender Identity Not on file Sexual Orientation Not on file documented as of this encounter Miscellaneous Notes * Clinician Note - Jasmina Bustamante RD - 01/28/2024 2:30 PM EDT Outpt Nutrition Support Note Name: Austin Prieto : 1995 Date of encounter: 01/28/24 2:30p Visit type:telehealth Patient identity has been confirmed using name and date of . Patient confirms they are physically located in [place]. The patient has received and understands the [place] Authorizations and Agreements form and consents to the general terms and conditions of care. The patient has received the Consent for Care Using TeleCare. Audio and video or audio only?Audio and video Reason for visit/Dx: gastroparesis, Duchenne's muscular dystrophy, ventilator dependence. S/p elective colostomy 05/14/23. H/o constipation and reflux. Referred to RD to assess appropriateness of current enteral nutrition feeding regimen. Referring provider: Dane JONES Austin Prieto is a 28 y.o. male who was referred to RD by [facility] GI/digestive disease clinic. PMH: He has a past medical history of Anxiety (10/2019), CHF (congestive heart failure) (CMS/HCC) (12/18/2012), Depression (10/2019), Failure to thrive (child), GERD (gastroesophageal reflux disease) (01/19/2012), Other disorders of lung, Personal history of other diseases of the circulatory system, Personal history of other diseases of the digestive system, Personal history of other diseases of the nervous system and sense organs, and Personal history of pneumonia (recurrent). Past Surgical history: He has a past surgical history that includes Tympanostomy tube placement (N/A); Gastrostomy tube placement (N/A); Spinal fusion; and Colon surgery (05/14/2023). Subjective: Pt states the following: Pt and mom Carissa present for session today, and both provided information during session. EN is Delivered via pump, and mom adjusts rate of TF according to how pt is feeling, and states shedelivers total of 3.5 cans Nutren 2.0/d. Mom states pt's Clothes size has gone from size medium to size large since last summer, with perceived wt gain. Pt has been using EN since 2011 per mom. Mom comes to today's session with concerns that EN Rx may needed to be adjusted since she doesn't want pt to gain too much wt. GI sx: No GI complaints. Pt reports he gags in the morning (shelter issue); states he wears a mask overnight and mom wonders if this may be r/t mucous issues (?). Mom reports Ostomy output is usually pudding texture, and states texture may vary from thicker or thinner than this, which she perceives is based on pt's hydration status. Empties ostomy bag usually once/d in mornings and estimates approx 300ml volume. States adequate Urine output with urine that is light lemonade color most of the time. Pt reported known food intolerances: none Anthropometrics: Height: 61in; mom states this is best ht estimate according to measurements of pt's body, since pt has some contraction. Weight: wt last summer was 90-91lb; no actual wt has been obtained since that time since mom reports lack of access to wheelchair scale. States wt in EMR documented 11/05/23 was an estimated wt and mom does not endorse as accurate at that time nor now. Wt Readings from Last 1 Encounters: 11/05/23 40.8 kg (90 lb) BMI/status: not able to determine, since no actual wt data avail. BMI Readings from Last 1 Encounters: 11/05/23 17.01 kg/m?? IBW:112-123lb range; if mom is correct in wt gain estimate, pt's wt could be 120lb now which would be wnl for IBW. Wt change: mom estimates pt has gained 25-30lb since last summer, but no actual wt avail since April2023 per mom's report. Most recent available labs reviewed-yes Current Meds reviewed--yes Estimated daily calorie needs:~1500 maribel/d (1260-1527cal/d range) based on 25-30 maribel/kg IBW since mom states pt has had signif wt gain since last summer (when wt was 90lb). Estimated pro needs: 60-70g/d based on 1.2-1.4g/kg IBW Current Nutrition Rx: Po:pt takes small amounts of po food for pleasure. Drinks propel, gatorade and water with lemon; mom states pt drinks four 16.9 oz bottles of water/d. Pt takes small amounts of food types that he is able to chew; mom states pt is Very careful to pulverize all foods before swallowing to prevent any food from getting stuck. Pt has difficulty swallowing meds and has to use crushed pills/meds. Mom reports Pt may sample small bits of soft food such as Scrambled eggs, mashed potatoes, tender chicken po daily.; states when pt was severely constipated (prior to ostomy placement) he ate even less po. Oral nutrition supplements used: none EN Rx: Nutren 2.0 with total volume of 3.5 cans/d delivered via pump at rate pt tols best, which mom states is usually 46-49ml/h (delivers until goal volume is reached daily). Current Home infusion company:[facility] Route: Gtube (mom verbally confirms) Tolerance: tols well Goal volume delivery/d: 875ml Free water: pt states he Drinks water po in small amounts at a time throughout the day, approx 64 oz/d. EN Rx at goal rate of delivery provides: Kcal: 1750cal/d Pro:74g/d Fiber: 0g/d TF fw:605ml Total fw/d: 2525ml (based on report of po water consumed) Meets DRI? Yes Nutrition assessment/recommendations/intervention: RD Assesses that Pt has need for TF as primary source of nutrition. Noted that pt had ostomy diet edu at [facility] 05/16/23, post-ostomy placement. Pt reports he feels well and is doing well with ostomy in place. RD recs that at next in-person visit at medicine specialties clinic that pt request that staff obtain an actual wt, and gave pt/mom info about wheelchair approp scale avail on hallway A in clinic that they could access. Though no actual recent wt data avail, pt's mom estimates pt has gained 25-30lb since last summer when colostomy placed. Pt's current EN Rx was aimed at helping promote wt gain, which has likely occurred. RD now recs moving toward maribel/pro estimates based on IBW since actual wt is not known today. RD Recs same EN formula, route and delivery method but rec decrease total goal volume to 3 cans/d (750ml/d goal volume) given mom's report of significant wt gain that may put pt near IBW range. Rec Continue with free water po since pt drinks fluids well; if pt ceases to drink water po, mom is awarethat fw may be given via PEG. Pt needs to consume 4 cups fw (960ml) daily to meet fluid needs, based on approx 1ml fluid/maribel delivered. RD discussed recs for EN Rx change with Dane JONES (current prescribing provider) who is in agreement, and RD advised pt/mom of this; our clinic will send Rx adjustments to [facility]. Recommended Rx Will provide: Kcal: 1500 maribel/d Pro:63g/d Fiber: 0g/d TF fw:518ml Pt drinks 64 oz fluid po daily per his report and RD encouraged continue with same. Recommended Rx Meets 100 % Estimated maribel/pro needs. Meets DRI? Yes RD Made pt aware that Home Infusion company RD/clinical staff team is the entity responsible for closely following pt's home nutrition support status. Monitor/eval: RD made pt aware of RD's availability for follow up prn. Jasmina Bustamante RD, LD, MS documented in this encounter Plan of Treatment Not on file documented as of this encounter Visit Diagnoses Diagnosis Duchenne's muscular dystrophy (CMS/HCC) Hereditary progressive muscular dystrophy Gastroparesis Encounter for care related to feeding tube documented in this encounter Additional Health Concerns Assessment Noted Time A fall risk assessment has been complete d for the patient 11/05/2023 2:34 PM EST A Body Mass Index follow-up plan has been documented for the patient 01/28/2024 5:48 PM EDT documented as of this encounter Care Teams Blow Mold Operator Relationship Specialty Start Date End Date Rhys Butts MD [address] [place] [address] PCP - General 03/02/21 documented as of this encounter
--- OUTSIDE RECORDS SUMMARY | 2024-09-29 14:24 | XMS_ITS | Encounter Summary ---
Author Organization [facility] Address [address] [place] [address] Care Team Providers Care Door Maker Name Role Phone Rhys Butts MD Primary Care Provider + Reason for Visit * Reason Onset Date Comments Med Refill 03/25/2024 Encounter Details Date Type Department Care Team (Late st Contact Info) Description 03/25/2024 Refill [facility] [address] [place] [address] Rhys Butts MD [address] [place] [address] Chronic pain syndrome; Chronic nonmalignant [...] dystrophy documented in this encounter Care Teams Door Maker Relationship Specialty Start Date End Date Rhys Butts MD [facility] [place] [address] PCP - General Family Medicine 01/05/24 documented as of this encounter
--- OUTSIDE RECORDS SUMMARY | 2024-09-29 14:24 | XMS_ITS | Referral Summary ---
Author Organization [facility] Address [address] [place] [address] Care Team Providers Care Hat And Cap Drying Room Attendant Name Role Phone Tara Mireles APRN Primary Care Provider [phone] Tara Mireles APRN Unavailable [phone] Social History Tobacco Use Types Packs/Day Years Used Date Smoking Tobacco: Never Assessed Interpersonal Safety Answer Date Record ed Family or friends hurt you Not on file 11/08 Family or friends insult you Not on file Family or friends threaten you Not on file 0 11/08/2023 Family or friends scream or curse at you Not on file 11/08/2023 Housing Stability Answer Date Recorded Living situation today Not on file Living situation problems Not on file 2023 Food Insecurity Answer Date Recorded Food run out past 12 months Not on file 10/21 Food did not last past 12 months Not on file 11/08/2023 Employment Answer Date Recorded Help finding and keeping a job Not on file 0 11/08/2023 Family and Community Support Answer Toan e Recorded Help with Day to Day Activities Not on file 11/08/2023 Feeling Lonely or Isolated Not on file 11/08 Educational Attainment Answer Date Sebas rded Speak language other than [place]an at home Not on file 11/08/2023 Want help with school or training Not on file 11/08/2023 Depression Answer Date Recorded PHQ-2 Risk Not on file 11/08/2023 Disabilities Answer Date Recorded Difficulty concentrating Not on file 024 Difficulty doing errands alone Not on file 0 11/08/2023 Substance Use Answer Date Recorded Used prescription meds for non-medical reasons N ot on file 11/08/2023 Used illegal drugs past 12 months Not on file 11/08/2023 Sex and Gender Information Value Date Recorded Sex Assigned at Not on file Legal Sex Male 12:47 PM CDT Gender Identity Not on file Sexual Orientation Not on file Plan of Treatment Not on file Insurance [place] Care Teams Hat And Cap Drying Room Attendant Relationship Specialty Start Date End Date Tara Mireles APRN [address] [place] [address] [place] [address] PCP - General Nurse Practitioner 04/02/23 Tara Mireles APRN [address] [place] [address] [place] [address] Referring Physician Nurse Practitioner 04/02/23
--- OUTSIDE RECORDS SUMMARY | 2024-09-29 14:24 | XMS_ITS | Clinical Summary ---
Author Organization [facility] Address [address] [place] [address] Care Team Providers Care Defensive Fire Control Systems Operator Name Role Phone Rhys Butts MD Primary Care Provider + Allergies No known active allergies Medications bisoprolol (ZEBeta) 5 MG tablet Take 1 tablet by mouth Daily. 11/21/19 24 Active furosemide (LASIX) 20 MG tablet Take 1 tablet by mouth Daily. 11/21/19 24 Active Omeprazole-Sodium Bicarbonate 2-84 MG/ML reconstituted suspension Take 40 mg by mouth Daily. 11/11/19 24 Active Entresto 49-51 MG tablet Take 1 tablet by mouth 2 (Two) Times a Day. 12/19/19 24 Active Nutritional Supplements (nutren 2.0) liquid Take by mouth. Activ e ammonium lactate (AMLACTIN) 12 % cream Apply 1 g topically to the appropriate area as directed As Needed for Dry Skin. Active LORazepam (ATIVAN) 0.5 MG tabletIndications :Anxiety about health Take 1 tablet by mouth Every 8 (Eight) Hours As Needed for Anxiety. 90 tablet 5 04/19/20 24 Active HYDROcodone-aceta minophen (NORCO) 5-325 MG per tabletIndications :Chronic pain syndrome,Chronic nonmalignant pain,Duchenne muscular dystrophy 1/2 to 1 tab per G tube every 4 hours as needed 90 tablet 06/17/20 24 Active gabapentin (NEURONTIN) 50 mg/mL solutionIndicatio ns:Chronic pain syndrome,Chronic nonmalignant pain,Duchenne muscular dystrophy Take 12.5 mL by mouth 3 (Three) Times a Day. 1125 mL 5 07/22/20 24 Active escitalopram (LEXAPRO) 10 MG tablet Take 1 tablet by mouth Daily. 30 tablet 5 08/25/20 24 Active methylPREDNISolon e (MEDROL) 4 MG dose pack Take as directed on package instructions. 21 tablet 09/01/20 24 Active methylPREDNISolon e (MEDROL) 4 MG dose pack Take as directed on package instructions. 21 tablet 06/16/20 24 024 Discontin ued(Reord er) Encounters Date Type Department Care Team Description 09/01/2024 Telephone [facility] [address] [place] [address] Rhys Butts MD 07/22/2024 Refill [facility] [address] [place] [address] Rhys Butts MD Chronic pain syndrome; Chronic nonmalignant pain; Duchenne muscular dystrophy from Last 3 Months Immunizations Name Administration Dates Next Due Influenza Injectable Mdck Pf Quad 10/10/2008 Influenza, Unspecified 10/01/2017 Pneumococcal Conjugate 20-Valent (PCV20) 022 Family History Medical History Relation Name Comments Diabetes Maternal Grandfather Heart attack Maternal Grandfather Hyperlipidemia Maternal Grandfather Hypertension Maternal Grandfather Stroke Maternal Grandfather Arthritis Maternal Grandmother Breast cancer Maternal Grandmother Osteoporosis Maternal Grandmother Relation Name Status Comments Maternal Grandfather Maternal Grandmother Mother Alive Social History Tobacco Use Types Packs/Day Years Used Date Smoking Tobacco: Never Smokeless Tobacco: Never Tobacco Cessation:Counseling Given: Not Answered Alcohol Use Standard Drinks/Week Comments Never 0 [...] on file Sexual Orientation Not on file Last Filed Vital Signs Vital Sign Reading Time Taken Comments Blood Pressure 118/65 01/05/2024 12:38 PM EDT Pulse 74 01/05/2024 12:38 PM EDT Temperature 36.8 ??C (98.3 ??F) 01/05/2024 12:38 PM E DT Respiratory Rate 24 01/05/2024 12:38 PM EDT Oxygen Saturation 95% 01/05/2024 12:38 PM EDT Inhaled Oxygen Concentration - - Weight 52.2 kg (115 lb) 01/05/2024 12:38 PM EDT per mother Height 157.5 cm (5' 2 ) 01/05/2024 12:38 PM EDT Body Mass Index 21.03 01/05/2024 12:38 PM EDT Plan of Treatment Health Maintenance Due Date Last Done Comments TDAP/TD VACCINES (1 - Tdap) 2015 ANNUAL PHYSICAL 01/05/2024 HEPATITIS C SCREENING 01/05/2024 INFLUENZA VACCINE 04/19/2024 10/01/2017, 10/10/2008 COVID-19 Vaccine (2023-2 5 season) 2024 MOST FORM 01/05/2025 01/06/2024 Pneumococcal Vaccine 0-64 Aged Out 06/10/2022 No longer eligible based on patient's age to complete this topic Insurance [place]ID [place] Advance Directives Documents on File Type Date Recorded Patient Certified Hearing Instrument Dispenser Expl anation MOST ([place]) [facility] - SCAN 01/06/2024 3:01 PM MOST [place], [facility], 04/29/2022 LIVING WILL - SCAN 01/06/2024 3:01 PM KATERINA NUÑEZ WILL DIRECTIVE, [facility], 04/01/2023 Care Teams Defensive Fire Control Systems Operator Relationship Specialty Start Date End Date Rhys Butts MD [address] [place] [address] PCP - General Family Medicine 01/05/24
--- OUTSIDE RECORDS SUMMARY | 2024-09-29 14:24 | XMS_ITS | Encounter Summary ---
Author Organization [facility] Address [address] [place] [address] Care Team Providers Care Evp And Chief Operating Officer Name Role Phone Rhys Butts MD Primary Care Provider + Reason for Visit * Reason Onset Date Comments Prior Authorization 03/08/2024 Hydrocodone Encounter Details Date Type Department Care Team (Late st Contact Info) Description 03/08/2024 Telephone [facility] [address] [place] [address] Rhys Butts MD [address] [place] [address] Prior Authorization (Hydrocodone ) Social History Tobacco Use Types Packs/Day Years [...] as of this encounter Miscellaneous Notes * Telephone Encounter - Marissa Raya MA - 03/08/2024 5:39 PM EDT Submitted prior auth for pt's hydrocodone via [employer] [place]# [id number] Approved until 03-08-25 documented in this encounter Plan of Treatment Not on file documented as of this encounter Visit Diagnoses Not on filedocumented in this encounter Care Teams Evp And Chief Operating Officer Relationship Specialty Start Date End Date Rhys Butts MD [address] [place] [address] PCP - General Family Medicine 01/05/24 documented as of this encounter
--- OUTSIDE RECORDS SUMMARY | 2024-09-29 14:24 | XMS_ITS | Encounter Summary ---
Author Organization [facility] Address [address] [place] [address] Care Team Providers Care Restaurant Supervisor Name Role Phone Rhys Butts MD Primary Care Provider + Reason for Visit * Reason Comments ORACLE PROGRAMMER ANALYST / establish PCP Encounter Details Date Type Department Care Team (Late st Contact Info) Description 01/05/2024 12:30 PM EDT Office Visit [facility] [address] [place] [address] Rhys Butts MD [address] [place] [address] Duchenne muscular dystrophy (Primary Dx); Chronic pain syndrome; Chronic depressive disorder; Anxiety about health; Chronic nonmalignant pain; Colostomy in place; Left ventricular systolic dysfunction; Chronic respiratory failure with hypoxia Social History Tobacco Use Types Packs/Day Years [...] Recorded Current Living Arrangements Not on file 02/1 12/2023 Potentially Unsafe Housing Conditions Not on rashad [...] on file documented as of this encounter Last Filed Vital Signs Vital Sign Reading [...] Mass Index 21.03 01/05/2024 12:38 PM EDT documented in this encounter Progress Notes * Rhys Butts MD - 01/05/2024 12:30 PM EDT Chief Complaint Patient 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 who presents to reestablish care with me. I am familiar with patient frommy prior practice. 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 The patient is currently in a palliative care program through [facility] but his mother has been informed finding for this program may be ending. Patient has been started on or continued on multiple controlled substances over the last several years from physical and mental complications of his Duchenne muscular dystrophy. Patient uses gabapentin for neuropathic pain in the lower extremities. He has been prescribed hydrocodone which is used rarely and his mother brings in the prescription that is up nearly 2 years old.He has been prescribed lorazepam for anxiety. Other consultants are listed below Cardiology--Dr. Terrell Mg. EF is now 55%. Appt. Every 6-9 months. Pulmonology--. Every [address] Christian Aquino Gastroenterology--Dane Gabriel at [facility] every 6 months. Colorectal Surgeon--Dr. Colt Santos. Patient has Colostomy. The following portions of the patient's history were reviewed and updated as appropriate: allergies, current medications, past family history, past medical history, past social history, past surgicalhistory, and problem list. Review of Systems Objective Vital Signs: BP 118/65 Pulse 74 Temp 98.3 ??F (36.8 ??C) Resp 24 Ht 157.5 cm (62 ) Wt 52.2 kg (115 lb)Comment: per mother SpO2 95% BMI 21.03 kg/m?? BMI is within normal parameters. No other follow-up for BMI required. Physical Exam Vitals reviewed. Constitutional: Comments: He is seated in a power mobility device HENT: Mouth/Throat: Comments: Lips are dry Cardiovascular: Rate and Rhythm: Normal rate and regular rhythm. Pulses: Normal pulses. Heart sounds: Normal heart sounds. Pulmonary: Effort: Pulmonary effort is normal. Breath sounds: Normal breath sounds. Abdominal: General: Abdomen is flat. Palpations: Abdomen is soft. Musculoskeletal: Comments: Contraction deformities of the hands and feet Skin: Comments: Right lower extremity over the proximal flores has a healing area of erythema with dried light brown exudate Neurological: Mental Status: He is alert. Result Review Assessment and Plan Diagnoses and all orders for this visit: 1. Duchenne muscular dystrophy (Primary) 2. Chronic pain syndrome 3. Chronic depressive disorder 4. Anxiety about health 5. Chronic nonmalignant pain 6. Colostomy in place 7. Left ventricular systolic dysfunction 8. Chronic respiratory failure with hypoxia Plan: Controlled substance agreement was signed by the patient's mother on his behalf. We will continue palliative medications if needed. Patient may return on an as-needed basis Follow Up No follow-ups on file. Patient was given instructions and counseling regarding his condition or for health maintenance advice. Please see specific information pulled into the AVS if appropriate. documented in this encounter Plan of Treatment Not on file documented as of this encounter Visit Diagnoses Diagnosis Duchenne muscular dystrophy- Primary Hereditary progressive muscular dystrophy Chronic pain syndrome Chronic depressive disorder Chronic depressive personality disorder Anxiety about health Chronic nonmalignant pain Colostomy in place Colostomy status Left ventricular systolic dysfunction Chronic respiratory failure with hypoxia documented in this encounter Care Teams Restaurant Supervisor Relationship Specialty Start Date End Date Rhys Butts MD [address] [facility] [place] [address] PCP - General Family Medicine 01/05/24 documented as of this encounter
--- OUTSIDE RECORDS SUMMARY | 2024-09-29 14:24 | XMS_ITS | Encounter Summary ---
Author Organization Healthcare Address [address] [id number] Care Team Providers Care Refining Still Operator Name Role Phone Rhys Butts MD Primary Care Provider [phone] Reason for Visit * Reason Onset Date Comments Med Refill 06/16/2024 Encounter Details Date Type Department Care Team (Late st Contact Info) Description 06/16/2024 Refill [facility] [address] [place] [address] Dane Gabriel, PA [address] [place] [address] Social History Tobacco Use Types Packs/Day Years Used Date Smoking Tobacco: Never Passive Smoke Exposure: Never Smokeless Tobacco: Never Alcohol Use Standard Drinks/Week Comments No 0 (1 standard drink = 0.6 oz pur e alcohol) PHQ-2 Answer Date Recorded Patient Health Questionnaire-2 Score 0 06/16/2024 CAGE ASSESSMENT Answer Date Recorded Cage unable [...] drink first t eder in the morning (EYE-PULLBOAT ENGINEER) to steady your nerves or to get [...] has been complete d for the patient 06/16/2024 3:24 PM EDT A Body Mass Index follow-up plan has been documented for the patient 06/17/2024 2:50 PM EDT documented as of this encounter Care Teams Refining Still Operator Relationship Specialty Start Date End Date Rhys Butts MD [address] [place] [address] PCP - General 03/02/21 documented as of this encounter
--- OUTSIDE RECORDS SUMMARY | 2024-09-29 14:24 | XMS_ITS | Encounter Summary ---
Author Organization Healthcare Address [address] [id number] Care Team Providers Care Tongue And Quarter Stitcher Name Role Phone Rhys Butts MD Primary Care Provider [phone] Reason for Visit * Reason Comments Constipation Hyperglycemia Encounter Details Date Type Department Care Team (Late st Contact Info) Description 06/16/2024 3:40 PM EDT Office Visit [facility] [address] [place] [address] Dane Gabriel, PA [address] [place] [address] Duchenne's muscular dystrophy (CMS/HCC) (Primary Dx); Gastroparesis; Chronic constipation; Gastroesophageal reflux disease without esophagitis Social History Tobacco Use Types Packs/Day Years Used Date Smoking Tobacco: Never Passive Smoke Exposure: Never Smokeless Tobacco: Never Tobacco Cessation:Counseling Given: Not Answered Alcohol Use Standard Drinks/Week Comments No 0 [...] drink first t eder in the morning (EYE-COAT FINISHER) to steady your nerves or to get [...] Sign Reading Time Taken Comments Blood Pressure - - Pulse - - Temperature - - Respiratory Rate - - Oxygen Saturation - - Inhaled Oxygen Concentration - - Weight 56.7 kg (125 lb) 06/16/2024 3:24 PM EDT Height 157.5 cm (5' 2 ) 06/16/2024 3:24 PM EDT Body Mass Index 22.86 06/16/2024 3:24 PM EDT documented in this encounter Miscellaneous Notes * Progress Notes - Dane Gabriel PA - 06/16/2024 3:40 PM EDT Telehealth Visit Subjective Patient ID: Austin Prieto is a 29 y.o. male. Chief Complaint Patient presents with Constipation Hyperglycemia Mr. Prieto is a 28 year old male seen in follow up today for chronic reflux, constipation and gastroparesis secondary to muscular dystrophy. Since the last visit he underwent elective colostomy with colorectal on 05/14. Discharged on 05/17. He reports that he has been feeling well since then. Output from the ostomy is steady without any gross GI bleeding. Some increased reflux symptoms of late. Mother reports difficulty dissolving omeprazole capsule contents in water to push through G-tube. She reports weight gain of 5 pounds in the last few months. They continue to feed nutren 2.0 @45-50 ml/hr. She is feeding a total of four 250 ml cans daily. Mr. Prieto is a 29 year old male seen in follow up today for chronic reflux, constipation and gastroparesis secondary to muscular dystrophy. For complete HPI from last visit please see above paragraph. Since the last visit Mr. Prieto visited with dietary in January who recommended same EN formula, route and delivery method with decrease total goal volume to 3 cans/d (750ml/d goal volume). Previous dose was 3.5 cans of Nutren 2.0 daily. Current Owen Button is 14 nauruan, 3.5 cm. With weight gain, button is tight against external skin. Mother is changing every 6 months, last time changed was in November. They report no issues with colostomy. They are both extremely happy with improved bloating and abdominal discomfort as well as diminished clean up associated with fecal incontinence/digital disimpaction. No significant report of reflux on current dose of 40 mg omeprazole qam. Abdominal Pain This is a recurrent problem. The current episode started more than 1 year ago. The onset quality isundetermined. The problem occurs rarely. The most recent episode lasted 4 hours. The problem has been resolved. The pain is at a severity of 0/10. Associated symptoms include arthralgias, constipation and myalgias. Pertinent negatives include no anorexia, belching, diarrhea, dysuria, fever, flatus,frequency, headaches, hematochezia, hematuria, melena, nausea, vomiting or weight loss. The following portions of the chart were reviewed this encounter and updated as appropriate: Tobacco Allergies Meds Problems Med Hx Surg Hx Fam Hx Review of Systems Constitutional: Negative for activity change, appetite change, chills, fatigue, fever, unexpected weight change and weight loss. HENT: Positive for trouble swallowing. Respiratory: Negative for shortness of breath. Cardiovascular: Negative for chest pain. Gastrointestinal: Positive for abdominal pain and constipation. Negative for anorexia, blood in stool, diarrhea, flatus, hematochezia, melena, nausea and vomiting. Genitourinary: Negative for dysuria, frequency and hematuria. Musculoskeletal: Positive for arthralgias and myalgias. Skin: Negative for color change and pallor. Neurological: Negative for seizures, syncope and headaches. Psychiatric/Behavioral: Negative for agitation, behavioral problems and confusion. Objective Physical Exam Vitals and nursing note reviewed. Constitutional: General: He is not in acute distress. Appearance: He is ill-appearing. He is not toxic-appearing. HENT: Mouth/Throat: Mouth: Mucous membranes are moist. Eyes: General: No scleral icterus. Skin: General: Skin is dry. Coloration: Skin is not jaundiced or pale. Findings: No bruising. Neurological: Mental Status: He is alert and oriented to person, place, and time. Psychiatric: Mood and Affect: Mood normal. Behavior: Behavior normal. Assessment/Plan Problem List Items Addressed This Visit Digestive Gastroparesis GERD (gastroesophageal reflux disease) Other Visit Diagnoses Duchenne's muscular dystrophy (CMS/HCC) - Primary Chronic constipation Chronic constipation: As detailed above, and in previous clinic notes, Mr. Prieto was struggling withprogressively worsening stool retention/severe constipation resulting in dependence on regular digital disimpaction/enemas with diminishing efficacy. We arranged for referral to colorectal to consider colostomy placement secondary to progressive GI transit delay likely related to progressive natureof Duchenne's muscular dystrophy. Mr. Prieto underwent elective colostomy with colorectal on 05/14.Discharged on 05/17. He reports that he has been feeling well since then. Output from the ostomy is steady without any gross GI bleeding. Austin and his mother are extremely happy with the outcome from colostomy placement. GERD: Mr. Prieto reports no significant reflux symptoms since transition over to liquid formulation of omeprazole at the last visit. Planned follow up in 6 months to reassess. Weight gain: Austin reports weight gain of 5 pounds in late 2022. Hgba1c checked after the last visit on 11/17 was wnl at 4.8. Mr. Prieto visited with dietary in January who recommended same EN formula, route and delivery method with decrease total goal volume to 3 cans/d (750ml/d goal volume). Previous dose was 3.5 cans of Nutren 2.0 daily. Since switching to new formula volume, weight has stabilized. Current Owen Button is 14 nauruan, 3.5 cm. With weight gain, button is tight against externalskin. Mother is changing every 6 months, last time changed was in November. We have contacted medical supplier [facility] to request upsize to 4.0 cm 14 nauruan Owen button kit. Telehealth Statement Patient Verification Patient identity has been confirmed using name and date of ? Yes Authorizations and Agreements/Telemedicine Consent sent and consent confirmed? Yes Patient Location: Home/Other Patient confirms they are physically located in [place]? Yes If the patient is not physically located in [place], the provider has confirmed with Legal thatthe provider is authorized to provide services in patient's stated location? Yes Provider Location: [facility] facility Audio and video or audio only? Audio and video Total visit time: 20 minutes documented in this encounter Plan of Treatment Not on file documented as of this encounter Visit Diagnoses Diagnosis Duchenne's muscular dystrophy (CMS/HCC)- Primary Hereditary progressive muscular dystrophy Gastroparesis Chronic constipation Unspecified constipation Gastroesophageal reflux disease without esophagitis Esophageal reflux documented in this encounter Additional Health Concerns Assessment Noted Time A fall risk assessment has been complete d for the patient 06/16/2024 3:24 PM EDT A Body Mass Index follow-up plan has been documented for the patient 06/17/2024 2:50 PM EDT documented as of this encounter Care Teams Tongue And Quarter Stitcher Relationship Specialty Start Date End Date Rhys Butts MD [address] [place] [address] PCP - General 03/02/21 documented as of this encounter
--- OUTSIDE RECORDS SUMMARY | 2024-09-29 14:24 | XMS_ITS | Encounter Summary ---
Author Organization Healthcare Address [address] [place], [place] [id number] Care Team Providers Care Alcohol Still Operator Name Role Phone Rhys Butts MD Primary Care Provider [phone] Encounter Details Date Type Department Care Team (Latest Contact Info) Description 06/16/2024 Travel Social History Tobacco Use Types Packs/Day [...] drink first t eder in the morning (EYE-HAND WOOD SANDER) to steady your nerves or to get [...] documented as of this encounter Care Teams Alcohol Still Operator Relationship Specialty Start Date End Date Rhys Butts MD [address] [place] [address] PCP - General 03/02/21 documented as of this encounter
--- OUTSIDE RECORDS SUMMARY | 2024-09-29 14:24 | XMS_ITS | Encounter Summary ---
Author Organization Healthcare Address [address] [place], [place] [id number] Care Team Providers Care Director Market Research Name Role Phone Rhys Butts MD Primary Care Provider [phone] Encounter Details Date Type Department Care Team (Latest Contact Info) Description 01/28/2024 Travel Social History Tobacco Use Types Packs/Day [...] drink first t eder in the morning (EYE-SPECIAL FORCES OFFICER) to steady your nerves or to get [...] documented as of this encounter Care Teams Director Market Research Relationship Specialty Start Date End Date Rhys Butts MD [address] [place] [address] PCP - General 03/02/21 documented as of this encounter
--- OUTSIDE RECORDS SUMMARY | 2024-09-29 14:24 | XMS_ITS | Encounter Summary ---
Author Organization Healthcare Address [address] [place] [address] Care Team Providers Care Guest Service Representative Name Role Phone Rhys Butts MD Primary Care Provider [phone] Encounter Details Date Type Department Care Team (Late st Contact Info) Description 02/03/2024 Telephone [facility] [address] [place] [address] Michelle Puentes, [facility] Social History Tobacco Use Types Packs/Day Years [...] drink first t eder in the morning (EYE-STEEL CRANE OPERATOR) to steady your nerves or to [...] encounter Miscellaneous Notes * Telephone Encounter - Michelle Puentes RN - 02/03/2024 3:36 PM EDT I * Telephone Encounter - Michelle Puentes RN - 02/03/2024 3:35 PM EDT ----- Message from Jasmina Bustamante RD sent at 01/29/2024 12:25 PM EDT ----- Yesterday I let Dane Gabriel know of my recs for TF changes for this pt and he agrees, so EN Rx will need to be adjusted. Rec adjust EN Rx to Nutren 2.0, 750ml/d (3 cans/d) to provide 1500 maribel/d, 63g pro/d, TF fw:518ml; cont with same delivery method and route. See my 01/27 note for more info prn. documented in this encounter Plan of Treatment [...] documented as of this encounter Care Teams Guest Service Representative Relationship Specialty Start Date End Date Rhys Butts MD [address] [place] [address] PCP - General 03/02/21 documented as of this encounter
--- OUTSIDE RECORDS SUMMARY | 2024-09-29 14:24 | XMS_ITS | Encounter Summary ---
Author Organization Healthcare Address [address] [id number] Care Team Providers Care Dairy Husbandry Worker Name Role Phone Rhys Butts MD Primary Care Provider [phone] Reason for Visit * Reason Comments Med Refill Encounter Details Date Type Department Care Team (Late st Contact Info) Description 02/18/2024 Refill [place] [facility] [address] [place] [address] Dane Gabriel, PA [address] [place] [address] Social History Tobacco Use Types [...] drink first t eder in the morning (EYE-ENDS BREAKAGE CLERK) to steady your nerves or to get rid of a hangover? 0 05/14/2023 CAGE Questionnaire Score 0 07/26/2 023 PHQ-2A Answer Date Recorded Patient Health Questionnaire-2 Score 0 06/03/2023 Sex and Gender Information Value Date Recorded Sex Assigned at Not on file Legal Sex Male 7:07 PM EDT Gender Identity Not on file Sexual Orientation Not on file documented as of this encounter Miscellaneous Notes * Telephone Encounter - Henry Boyce, PharmD - 02/18/2024 3:41 PM EDT Per protocol, 1 medication(s), konvomep, has been approved for 15 day supply with 6 refill(s) to [facility]. documented in this encounter Plan of Treatment [...] documented as of this encounter Care Teams Dairy Husbandry Worker Relationship Specialty Start Date End Date Rhys Butts MD [address] [place] [address] PCP - General 03/02/21 documented as of this encounter
--- OUTSIDE RECORDS SUMMARY | 2024-09-29 14:24 | XMS_ITS | Encounter Summary ---
Author Organization Healthcare Address [address] [place] [address] Care Team Providers Care Multiple Needle Stitcher Name Role Phone Rhys Butts MD Primary Care Provider [phone] Encounter Details Date Type Department Care Team (Late st Contact Info) Description 06/16/2024 Telephone [place] [facility] [address] [place] [address] Michelle Puentes, [facility] [...] drink first t eder in the morning (EYE-CYTOTECHNOLOGIST/HISTOTECHNOLOGIST) to steady your nerves or to get [...] Telephone Encounter - Michelle Puentes RN - 06/16/2024 4:28 PM EDT Rx placed printed out on Rx paper Dane in office to sign and I faxed manually to [facility] * Telephone Encounter - Michelle Puentes RN - 06/16/2024 4:28 PM EDT ----- Message from KAREN Delgado sent at 06/16/2024 4:13 PM EDT ----- Hey, Mr. Prieto reports that his current Cornelius button is getting a little tight with recent weight gain. Currently he has a 14 slovenian, 3.5 cm length feeding tube. He is using [facility] for his medical supplies. Can we fax a medical request for upsize to 4.0 cm 14 slovenian Cornelius button kit? Let me know if I need to fill out paperwork or sign anything. Dane Olvera documented in this encounter Plan of Treatment [...] documented as of this encounter Care Teams Multiple Needle Stitcher Relationship Specialty Start Date End Date Rhys Butts MD [address] [place] [address] PCP - General 03/02/21 documented as of this encounter
--- OUTSIDE RECORDS SUMMARY | 2024-09-29 14:24 | XMS_ITS | Encounter Summary ---
Author Organization Healthcare Address [address] [id number] Care Team Providers Care Tie In Hand Name Role Phone Rhys Butts MD Primary Care Provider [phone] Reason for Visit * Reason Onset Date Comments Med Refill 06/16/2024 Encounter Details Date Type Department Care Team (Late st Contact Info) Description 06/16/2024 Refill [facility] [address] [place] [address] Dane Gabriel, PA [address] [place] [address] Social History Tobacco Use Types [...] drink first t eder in the morning (EYE-PHOTOGRAPHY SALES ASSOCIATE) to steady your nerves or to get [...] documented as of this encounter Care Teams Tie In Hand Relationship Specialty Start Date End Date Rhys Butts MD [address] [place] [address] PCP - General 03/02/21 documented as of this encounter
--- OUTSIDE RECORDS SUMMARY | 2024-09-29 14:24 | XMS_ITS | Encounter Summary ---
Author Organization Healthcare Address [address] [place] [address] Care Team Providers Care Floor Tiling Professional Name Role Phone Rhys Butts MD Primary Care Provider [phone] Encounter Details Date Type Department Care Team (Late st Contact Info) Description 11/17/2023 Orders Only [facility] [address] [place] [address] Vibha Mott, [facility] Hyperglycemia Social History Tobacco Use Types Packs/Day Years [...] drink first t eder in the morning (EYE-DIRECTOR OF VIDEO ANALYTICS) to steady your nerves or to get [...] on file documented as of this encounter Procedures Procedure Name Priority Date/Time Associated Diagnosis Comments HEMOGLOBIN A1C Routine 11/17/2023 2:26 PM EST Hyperglycemia documented in this encounter Results * Hemoglobin A1c (11/17/2023 2:26 PM EST) Blood Venous blood specimen / Unknown us Dane JONES LAB BLOOD ORDERABLES Final Re sult EXTERNAL LAB documented in this encounter Visit Diagnoses Diagnosis Hyperglycemia Other abnormal glucose documented in this encounter Additional Health Concerns Assessment Noted Time A fall risk assessment has been complete d for the patient 11/05/2023 2:34 PM EST A Body Mass Index follow-up plan has been documented for the patient 11/07/2023 1:10 PM EST documented as of this encounter Care Teams Floor Tiling Professional Relationship Specialty Start Date End Date Rhys Butts MD [address] [place] [address] PCP - General 03/02/21 documented as of this encounter
--- OUTSIDE RECORDS SUMMARY | 2024-09-29 14:24 | XMS_ITS | Clinical Summary ---
Author Organization [facility] Address [address] [place] [address] Care Team Providers Care Mining Plant Operator Name Role Phone Rhys Butts MD Primary Care Provider [phone] Allergies No known active allergies Medications bisoprolol (Zebeta) 5 MG tablet 1 tablet (5 mg) by Per G Tube route 1 (one) time each day. 1 Active escitalopram (Lexapro) 10 MG tablet 1 tablet (10 mg) by Per G Tube route 1 (one) time each day. 1 Active furosemide (Lasix) 20 MG tablet 1 tablet (20 mg) by Per G Tube route 1 (one) time each day in the morning. 1 Active gabapentin (Neurontin) 250 MG/5ML solution 12.5 mL (625 mg) by Per G Tube route 3 (three) times a day. 1 Active sacubitril-vals katja (Entresto) 49-51 MG tablet 1 tablet by Per G Tube route 2 (two) times a day. 1 Active LORazepam (Ativan) 0.5 MG tablet 1 tablet (0.5 mg) by Per G Tube route every night. Active acetaminophen (Tylenol) 325 MG tablet Take 2 tablets (650 mg) by mouth every 6 (six) hours. 100 tablet 3 Active Additional Information Patient not taking.Reported on 06/03/2023 methocarbamol (Robaxin) 500 MG tablet Take 1 tablet (500 mg) by mouth every 6 (six) hours for 10 days. 40 tablet 3 Active Mupirocin 2 % kit Apply topically. 3 Active Nutritional Supplements (nutren 2.0) liquid 3 cans per day per g-tube via pump 34407 mL 11 4 Active omeprazole-sodi um bicarbonate (Konvomep) 2-84 MG/ML suspension TAKE 20 ML (40 MG) BY MOUTH 1 (ONE) TIME EACH DAY. 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 Chronic idiopathic constipation 04/28/2023 Melena 09/21/2020 Chronic respiratory failure 12/10/2019 Other cardiomyopathies 05/21/2019 Left ventricular systolic dysfunction 05/21/2019 GERD (gastroesophageal reflux disease) 7 Right bundle-branch block 04/14/2017 Dysphagia 03/05/2017 Ventilator dependence 07/14/2015 Gastroparesis 07/12/2015 Osteopenia 06/14/2015 Cardiomyopathy as manifestation of underlying di sease 10/20/2011 Tachycardia 10/20/2011 Duchenne muscular dystrophy 1996 Immunizations Name Administration Dates Next Due Influenza, Unspecified 10/01/2017 Influenza, injectable, MDCK, preservative free, quadrivalent 10/10/2008 Pneumococcal 20-rosy Conj Vaccine 06/10/2022 Family History Medical History Relation Name Comments Asthma Maternal Grandfather Colt Loza Diabetes Maternal Grandfather Colt Loza Cancer Maternal Grandmother Melanie Loza Anesthesia problems Neg Hx Malig Hyperthermia Neg Hx Relation Name Status Comments Maternal Grandfather Colt Foster Maternal Grandmother Melaniematias Loza Social History Tobacco Use Types Packs/Day Years [...] drink first t eder in the morning (EYE-BRINE MAKER) to steady your nerves or to get [...] Sign Reading Time Taken Comments Blood Pressure 96/62 03/03/2024 10:54 AM EDT Pulse 89 03/03/2024 10:54 AM EDT Temperature 37 ??C (98.6 ??F) 08/25/2023 2:51 PM EST Respiratory Rate 18 08/25/2023 2:51 PM EST Oxygen Saturation 98% 03/03/2024 10:54 AM EDT RA Inhaled Oxygen Concentration - - Weight 56.7 kg (125 lb) 06/16/2024 3:24 PM EDT Height 157.5 cm (5' 2 ) 06/16/2024 3:24 PM EDT Body Mass Index 22.86 06/16/2024 3:24 PM EDT Plan of Treatment Health Maintenance Due Date Last Done Comments [facility]-HIV Screening 1996 [facility]-Hepatitis C Screening 1996 [facility]-Infant/Child/Adol SDOH Screenings 1996 IVH-GEDKP-98 Vaccine (#1) 2001 [facility]-Varicella Vaccines (1 of 2 - 13+ 2-dose series) 2009 [facility]- SDOH Screenings 2014 [facility]-Adult SDOH Screenings 2014 [facility]-DTaP,Tdap,and Td Vaccines (1 - Tdap) 2015 [facility]-Hepatitis B Vaccines (1 of 3 - 19+ 3-dose series) 2015 [facility]-Zoster Vaccines (1 of 2) 2015 [facility]-Influenza Vaccine (#1) 06/20/202410/01, 10/10/2008 [facility]-Depression Screening 06/16/2025 024, 06/10/2022 [facility]-RSV Vaccine: 60+ Years or (1 - 1-dose 75+ series) 2071 [facility]-Pneumococcal Vaccine: Pediatrics (0 to 5 Years) and At-Risk Patients (6 to 64 Years) Completed 06/10/2022 [facility]-HIB Vaccines Aged Out No longer e ligible based on patient's age to complete this topic [facility]-HPV Vaccines Aged Out No longer e ligible based on patient's age to complete this topic [facility]-Hepatitis A Vaccines Aged Out No longer eligible based on patient's age to complete this topic [facility]-IPV Vaccines Aged Out No longer e ligible based on patient's age to complete this topic [facility]-Rotavirus Vaccines Aged Out No lo nger eligible based on patient's age to complete this topic Medical Devices Implanted Type Area Wire Basket Maker Device Identifier Shelf Expiration Date Model / Serial / Lot Screw Screw N/A: Back Insurance MEDICAID[place] Advance Directives Documents on File Type Date Recorded Patient User Support Analyst Expl anation Advance Directives and Living Will 05/14/2023 Advance Directives and Living Will 05/14/2023 * Full Code (Latest Code Status on File) Date Activated Date Inactivated Comments 05/14/2023 4:00 PM 05/17/2023 6:14 PM Question Answer Comments Patient has decision-making capacity? Yes Care Teams Mining Plant Operator Relationship Specialty Start Date End Date Rhys Butts MD [address] [place] [address] PCP - General 03/02/21
--- OUTSIDE RECORDS SUMMARY | 2024-09-29 14:24 | XMS_ITS | Encounter Summary ---
Author Organization [facility] Address [address] [place] [address] Care Team Providers Care Notch Machine Operator Name Role Phone Rhys Butts MD Primary Care Provider [phone] Encounter Details Date Type Department Care Team (Late st Contact Info) Description 11/13/2023 Telephone [facility] Medicine Specialties [address] [place] [id number] Cynthia Kaur [facility] [address] [id number] Social History Tobacco Use Types Packs/Day Years [...] drink first t eder in the morning (EYE-BIN OPERATOR) to steady your nerves or to [...] documented as of this encounter Care Teams Notch Machine Operator Relationship Specialty Start Date End Date Rhys Butts MD [address] [place] [address] PCP - General 03/02/21 documented as of this encounter
--- OUTSIDE RECORDS SUMMARY | 2024-09-29 14:24 | XMS_ITS | Encounter Summary ---
Author Organization Healthcare Address [address] [place] [address] Care Team Providers Care Blood Donor Recruiter Name Role Phone Rhys Butts MD Primary Care Provider [phone] Encounter Details Date Type Department Care Team (Late st Contact Info) Description 11/11/2023 Telephone [facility] Medicine Specialties [address] [place] [id number] Darren Rodrigez, PharmD Social History Tobacco Use Types Packs/Day Years [...] drink first t eder in the morning (EYE-TRUST VAULT CUSTODIAN) to steady your nerves or to get [...] encounter Miscellaneous Notes * Telephone Encounter - Diane Okeefe CPhT - 11/12/2023 3:29 PM EST PA request has been approved and pharmacy notified (Filling pharmacy will be notified by phone, fax, or submitted prescription) Authorized Medication: Konvomep 2-84MG/ML suspension Name of Insurance Approving PA: [employer] [place] Medicaid Pharmacy PA Number: [id number] PA Effective Dates: 11/12/23-11/11/24 Additional Info: Rx is at [facility] with $0 copay. * Telephone Encounter - Diane Okeefe CPhT - 11/12/2023 3:22 PM EST Prior authorization initiated by [facility] PA Services. Update will be provided when a determination has been received. Medication: Konvomep 2-84MG/ML suspension PA Submission Method: CMM Case Number/CMM [place]: [id number] * Telephone Encounter - Darren Rodrigez PharmD - 11/11/2023 10:23 AM EST ----- Message from Yelena Hicks CNA sent at 11/11/2023 9:55 AM EST ----- Regarding: FW: KAREN Contact: Upon review of patient's chart, medication was sent in.. has the PA been approved? omeprazole (PriLOSEC) 2 mg/mL solution Sig: Take 20 mL (40 mg) by mouth 1 (one) time each day before breakfast. Sent to pharmacy as: omeprazole 2 mg/mL PO solution Class: Normal Route: Oral E-Prescribing Status: Receipt confirmed by pharmacy (11/05/2023 3:03 PM EST) ----- Message ----- From: Austin Prieto Sent: 11/11/2023 9:47 AM EST To: # Subject: PA Good morning. I was wondering there was an word on the PA for the liquid omezaprole? The pharmacy said they did not know. Thanks documented in this encounter Plan of Treatment [...] documented as of this encounter Care Teams Blood Donor Recruiter Relationship Specialty Start Date End Date Rhys Butts MD [address] [place] [address] PCP - General 03/02/21 documented as of this encounter
--- OUTSIDE RECORDS SUMMARY | 2024-09-29 14:24 | XMS_ITS | Encounter Summary ---
Author Organization [facility] Address [address] [place] [address] Care Team Providers Care Motor Hotel Manager Name Role Phone Rhys Barry MD Primary Care Provider + Encounter Details Date Type Department Care Team (Late st Contact Info) Description 09/01/2024 Telephone [facility] FAMILY MEDICINE [address] [place] [address] Rhys Barry MD [address] [place] [address] Social History Tobacco Use Types Packs/Day Years [...] encounter Miscellaneous Notes * Telephone Encounter - Rhys Barry MD - 09/01/2024 3:11 PM EST Requested prescription sent * Telephone Encounter - Viky Bowman RegSched Rep - 09/01/2024 2:45 PM EST RYANNE FROM [facility] STATED THAT PATIENT IS HAVING REOCCURRING HIP PAIN AND WANTEDTO SEE IF DR. BARRY WOULD TREAT WITH A STEROID TAPER. PLEASE ADVISE RYANNE [phone] documented in this encounter Plan of Treatment Not on file documented as of this encounter Visit Diagnoses Not on filedocumented in this encounter Care Teams Motor Hotel Manager Relationship Specialty Start Date End Date Rhys Barry MD [facility] [address] PCP - General Family Medicine 01/05/24 documented as of this encounter
--- OUTSIDE RECORDS SUMMARY | 2024-09-29 14:24 | XMS_ITS | Encounter Summary ---
Author Organization [facility] Address [address] [place] [address] Care Team Providers Care Hospital Insurance Clerk Name Role Phone Rhys Butts MD Primary Care Provider + Reason for Visit * Reason Onset Date Comments Med Refill 04/23/2024 Encounter Details Date Type Department Care Team (Late st Contact Info) Description 04/23/2024 Refill [facility] FAMILY MEDICINE [address] [place] [address] Rhys Butts MD [address] [place] [address] Chronic pain syndrome; Chronic nonmalignant [...] dystrophy documented in this encounter Care Teams Hospital Insurance Clerk Relationship Specialty Start Date End Date Rhys Butts MD [facility] [place] [address] PCP - General Family Medicine 01/05/24 documented as of this encounter
--- OUTSIDE RECORDS SUMMARY | 2024-09-29 14:24 | XMS_ITS | Encounter Summary ---
Author Organization Healthcare Address [address] [id number] Care Team Providers Care Mold Making Supervisor Name Role Phone Rhys Butts MD Primary Care Provider [phone] Reason for Visit * Reason Comments Respiratory Distress Chronic Respiratory Failure with Hypercapnia Encounter Details Date Type Department Care Team (Late st Contact Info) Description 03/03/2024 11:20 AM EDT Office Visit [facility] Medicine Specialties [address] [place] [address] Christian Alejo MD [address] [place] [address] Chronic respiratory failure with hypercapnia (CMS/HCC) (Primary Dx); Ventilator dependence (CMS/HCC); Duchenne muscular dystrophy (CMS/HCC) Social History Tobacco Use Types Packs/Day Years Used Date Smoking Tobacco: Never Passive Smoke Exposure: Never Smokeless Tobacco: Never Alcohol Use Standard Drinks/Week Comments No 0 (1 standard drink = 0.6 oz pur e alcohol) PHQ-2 Answer Date Recorded Patient Health Questionnaire-2 Score 0 03/03/2024 CAGE ASSESSMENT Answer Date Recorded Cage unable [...] drink first t eder in the morning (EYE-VERTICAL BORER) to steady your nerves or to get [...] Pulse 89 03/03/2024 10:54 AM EDT Temperature - - Respiratory Rate - - Oxygen Saturation 98% 03/03/2024 10:54 AM EDT RA Inhaled Oxygen Concentration - - Weight 54.4 kg (120 lb) 03/03/2024 10:54 AM EDT Height 157.5 cm (5' 2 ) 03/03/2024 10:54 AM EDT Body Mass Index 21.95 03/03/2024 10:54 AM EDT documented in this encounter Miscellaneous Notes * Addendum Note - Christian Alejo MD - 03/03/2024 11:20 AM EDTAddended by: CHRISTIAN ALEJO on: 03/31/2024 04:51 PM Modules accepted: Orders * Progress Notes - Christian Alejo MD - 03/03/2024 11:20 AM EDT Austin Prieto is a 28 y.o. male who presents for ongoing management to pulmonary outpatient clinic. Chief complaint: Follow-up Duchenne Muscular Dystrophy Telehealth Statement Patient Verification Patient identity has been confirmed using name and date of ? Yes Authorizations and Agreements/Telemedicine Consent sent and consent confirmed? Yes Patient Location: Home/Other Patient confirms they are physically located in [place]? Yes If the patient is not physically located in [place], the provider has confirmed with [facility] thatthe provider is authorized to provide services in patient's stated location? Yes Provider Location: [facility] facility Audio and video or audio only? Audio and video Total visit time: 30 minutes HPI: 28 YO M with DMD last seen by me as a follow-up 08/2023 for management of his chronic mixed respiratory failure. At that visit, he was generally doing well, and had recovered well from a colostomy creation. Since last seen, he reports that he has been doing well from a respiratory standpoint and has no specific concerns today. He has not had any acute illnesses or hospitalizations since last seen. He is not having any concerns with his current ventilator settings and generally feels well. He iscompliant with NIV at all times. Background: Trilogy Ventilator settings: AVAPS-AE, TV 400, pressure 15/6, back up rate 5, intrinsic RR approximately 18, max pressure 30 cm H2O Chair mode vent: AC, TV 700, Ti 1.2 Support devices: Cough assist - compliant Respiratory Hospitalizations/Exacerbations: Hospitalization - 2014 Pneumonia - 2019 (outpatient) Past Medical History: Diagnosis Date Anxiety 10/2019 CHF (congestive heart failure) ([facility]) 12/18/2012 Depression 10/2019 Failure to thrive (child) Failure to thrive (0-17) GERD (gastroesophageal reflux disease) 01/19/2012 Other disorders of lung Chronic pulmonary disease Personal history of other diseases of the circulatory system History of cardiomyopathy Personal history of other diseases of the digestive system History of gastritis Personal history of other diseases of the nervous system and sense organs History of sciatica Personal history of pneumonia (recurrent) History of pneumonia Past Surgical History: Procedure Laterality Date COLON SURGERY 05/14/2023 GASTROSTOMY TUBE PLACEMENT N/A Feeding Tube from [facility] SPINAL FUSION TYMPANOSTOMY TUBE PLACEMENT N/A Ear Pressure Equalization Tube, Insertion, Bilaterally from [facility] Family History Problem Relation Name Age of Onset Asthma Maternal Grandfather Colt Loza Diabetes Maternal Grandfather Colt Loza Cancer Maternal Grandmother Melanie Loza Anesthesia problems Neg Hx Malig Hyperthermia Neg Hx Social History Socioeconomic History Marital status: Single Spouse name: Not on file Number of children: Not on file Years of education: Not on file Highest education level: Not on file Occupational History Not on file Tobacco Use Smoking status: Never Passive exposure: Never Smokeless tobacco: Never Vaping Use Vaping status: Never Used Substance and Sexual Activity Alcohol use: No Drug use: Never Comment: Drug use: No drug use Sexual activity: Never Other Topics Concern Not on file Social History Narrative Not on file Social Determinants of Health Financial Resource Strain: Not on file Food Insecurity: No Food Insecurity (11/08/2023) Received from [employer] Food Insecurity : Not on file : Not on file Transportation Needs: Not on file Physical Activity: Not on file Stress: Not on file Social Connections: Unknown (12/02/2023) Received from [facility] Family and Community Support Help with Day-to-Day Activities: Not on file Lonely or Isolated: Not on file Intimate Partner Violence: Unknown (12/02/2023) Received from [facility] Abuse Screen Unsafe at Home or Work/School: Not on file Feels Threatened by Someone?: Not on file Does Anyone Keep You from Contacting Others or Doint Things Outside the Home?: Not on file Physical Sign of Abuse Present: Not on file Housing Stability: Unknown (12/02/2023) Received from [facility] Housing Stability Current Living Arrangements: Not on file Potentially Unsafe Housing Conditions: Not on file Review of Systems Constitutional: Negative for activity change, chills and fever. HENT: Negative for congestion and postnasal drip. Eyes: Negative for redness and itching. Respiratory: Negative for cough, shortness of breath and wheezing. Cardiovascular: Negative for chest pain and palpitations. Objective: Physical Exam: There were no vitals taken for this visit. Physical Exam Constitutional: General: He is not in acute distress. Neurological: Mental Status: He is alert. Data: New Data Reviewed Personally By Me This Visit: None Historical Data (personally re-reviewed by me today): Labs 05/16/2023: CBC 7.90>10.3/31.9<246 BMP 138/4.1 104/26 19/<0.11<125 CXR 05/15/2023: Right internal jugular line in place. No PTX. No acute pulmonary process. Overnight oximetry 01/09/2023: Time SpO2 <88%: 19.6 minutes SpO2 sil 79% Time below 85%: 1.6% Time below 80%: 0% ABG 06/10/2022: 7.46/35/99 TTE 04/2019: Limited study. EF grossly 35-45%, unchanged from 2018. TTE 01/2021: EF 35-45% ABG 12/2020: 7.42/34/85 Assessment and Plan: 28 y.o. M with: 1) Chronic hypercapneic respiratory failure requiring mechanical ventilation in setting of DMD: Symptomatically doing well on currently ventilatory support. Given that he is tolerating his current settings well, has historically been well compensated, and there has been no symptomatic fluctuations, I don't believe that adjusting his current settings is likely to provide clinically meaningful benefit, and will continue to monitor. - continue current ventilator settings - f/u 6 months for in person visit 2) Duchenne Muscular Dystrophy - as above 3) Health Maintenance - the patient has had the influenza vaccine (per patient, not documented in EMR) - the patient is not fully vaccinated for COVID-19 and has not received a booster; this was recommended today but declined - the patient is not a candidate for LDCT screening for lung cancer - the patient has received appropriate vaccination for pneumococcal disease The patient was given instructions to return to the clinic when testing is complete. No orders of the defined types were placed in this encounter. I personally spent a total of 30 minutes in direct care for this patient on the date of service. This time was spent on review of the chart, discussion with other providers, review of notes written by other providers, personal review of images and results of studies, history taking and review, review of systems, discussion with the patient, care planning and coordination, and the making of medical orders. Addendum: Received message from patients mother regarding malfunction of his suction machine, which is essential to help with secretion clearance in setting of his muscular dystrophy. Will place consult to DMEto facilitate replacement. documented in this encounter Plan of Treatment Not on file documented as of this encounter Visit Diagnoses Diagnosis Chronic respiratory failure with hypercapnia (CMS/HCC)- Primary Ventilator dependence (CMS/HCC) Dependence on respirator, status Duchenne muscular dystrophy (CMS/HCC) Hereditary progressive muscular dystrophy documented in this encounter Additional Health Concerns Assessment Noted Time A fall risk assessment has been complete d for the patient 03/03/2024 10:54 AM EDT A Body Mass Index follow-up plan has been documented for the patient 03/11/2024 4:22 PM EDT documented as of this encounter Care Teams Mold Making Supervisor Relationship Specialty Start Date End Date Rhys Butts MD [address] [place] [address] PCP - General 03/02/21 documented as of this encounter
--- OUTSIDE RECORDS SUMMARY | 2024-09-29 14:24 | XMS_ITS | Encounter Summary ---
Author Organization Healthcare Address [address] [id number] Care Team Providers Care Tip Length Checker Name Role Phone Rhys Butts MD Primary Care Provider Reason for Visit * Reason Onset Date Comments Med Refill 01/29/2024 Encounter Details Date Type Department Care Team (Late st Contact Info) Description 01/29/2024 Refill [facility] Medicine Specialties [address], [address] [place] [address] Dane Gabriel, PA [address] [place] [address] Social History Tobacco Use Types [...] drink first t eder in the morning (EYE-SAP MOBILITY ARCHITECT) to steady your nerves or to get [...] documented as of this encounter Care Teams Tip Length Checker Relationship Specialty Start Date End Date Rhys Butts MD [address] [place] [address] PCP - General 03/02/21 documented as of this encounter
--- OUTSIDE RECORDS SUMMARY | 2024-09-29 14:24 | XMS_ITS | Clinical Summary ---
Author Organization [facility] Address [address] [place] [address] Care Team Providers Care Housetrailer Servicer Name Role Phone Tara Mireles APRN Primary Care Provider [phone] Tara Mireles APRN Unavailable [phone] Social History Tobacco Use Types Packs/Day Years [...] Date Sebas rded Speak language other than Monegasque at home Not on file 11/08/2023 Want [...] Treatment Not on file Insurance [place]ID [place] Care Teams Housetrailer Servicer Relationship Specialty Start Date End Date Tara Mireles APRN [address] [place] [address] [place] [address] PCP - General Nurse Practitioner 04/02/23 Tara Mireles APRN [address] [place] [address] [place] [address] Referring Physician Nurse Practitioner 04/02/23
--- OUTSIDE RECORDS SUMMARY | 2024-09-29 14:24 | XMS_ITS | Encounter Summary ---
Author Organization [facility] Address [address] [place] [address] Care Team Providers Care Consumer Services Consultant Name Role Phone Rhys Butts MD Primary Care Provider + Reason for Visit * Reason Onset Date Comments Med Refill 04/23/2024 Encounter Details Date Type Department Care Team (Late st Contact Info) Description 04/23/2024 Refill [facility] FAMILY MEDICINE [address] [place] [address] Rhys Butts MD [address] [place] [address] Social History Tobacco Use Types [...] on filedocumented in this encounter Care Teams Consumer Services Consultant Relationship Specialty Start Date End Date Rhys Butts MD [address] [place] [address] PCP - General Family Medicine 01/05/24 documented as of this encounter
--- OUTSIDE RECORDS SUMMARY | 2024-09-29 14:24 | XMS_ITS | Encounter Summary ---
Author Organization Healthcare Address [address] [place], [place] [id number] Care Team Providers Care Damper Worker Name Role Phone Rhys Butts MD Primary Care Provider [phone] Encounter Details Date Type Department Care Team (Latest Contact Info) Description 03/03/2024 Travel Social History Tobacco Use Types Packs/Day [...] drink first t eder in the morning (EYE-BLASTING MACHINE OPERATOR) to steady your nerves or to [...] documented as of this encounter Care Teams Damper Worker Relationship Specialty Start Date End Date Rhys Butts MD [address] [place] [address] PCP - General 03/02/21 documented as of this encounter
--- OUTSIDE RECORDS SUMMARY | 2024-09-29 14:24 | XMS_ITS | Encounter Summary ---
Author Organization Healthcare Address [address] [place] [address] Care Team Providers Care Management Scientist Name Role Phone Rhys Butts MD Primary Care Provider [phone] Encounter Details Date Type Department Care Team (Late st Contact Info) Description 11/11/2023 Orders Only [facility] Medicine Specialties [address] [place] [address] Dane Gabriel, PA [address] [place] [address] Social History Tobacco Use Types [...] drink first t eder in the morning (EYE-DECAL TRANSFERRER) to steady your nerves or to get [...] documented as of this encounter Care Teams Management Scientist Relationship Specialty Start Date End Date Rhys Butts MD [address] [place] [address] PCP - General 03/02/21 documented as of this encounter
--- OUTSIDE RECORDS SUMMARY | 2024-09-29 14:25 | XMS_ITS | Encounter Summary ---
Author Organization Healthcare Address [address] [place] [address] Care Team Providers Care Geothermal Electrical Engineer Name Role Phone Rhys Butts MD Primary Care Provider [phone] Encounter Details Date Type Department Care Team (Late st Contact Info) Description 04/28/2023 Orders Only [facility] General Surgery [address] [place] [address] Won Santos MD [address] [facility] [address] [place] [address] Chronic idiopathic constipation (Primary Dx) Social History Tobacco Use Types Packs/Day Years Used Date Smoking Tobacco: Never Passive Smoke Exposure: Never Smokeless Tobacco: Never Alcohol Use Standard Drinks/Week Comments No 0 (1 standard drink = 0.6 oz pur e alcohol) PHQ-2 Answer Date Recorded Patient Health Questionnaire-2 Score 0 03/25/2023 Sex and Gender Information Value Date Recorded Sex Assigned at Not on file Legal Sex Male 7:07 PM EDT Gender Identity Not on file Sexual Orientation Not on file documented as of this encounter Plan of Treatment Not on file documented as of this encounter Visit Diagnoses Diagnosis Chronic idiopathic constipation- Primary Unspecified constipation documented in this encounter Additional Health Concerns Assessment Noted Time A fall risk assessment has been complete d for the patient 03/25/2023 2:12 PM EDT documented as of this encounter Care Teams Geothermal Electrical Engineer Relationship Specialty Start Date End Date Rhys Butts MD [address] [place] [address] PCP - General 03/02/21 documented as of this encounter
--- OUTSIDE RECORDS SUMMARY | 2024-09-29 14:25 | XMS_ITS | Encounter Summary ---
Author Organization Healthcare Address [address] [place] [address] Care Team Providers Care Gold Prospector Name Role Phone Rhsy Butts MD Primary Care Provider [phone] Reason for Visit * Reason Comments Follow-up Encounter Details Date Type Department Care Team (Late st Contact Info) Description 08/25/2023 3:20 PM EST Office Visit [facility] Medicine Specialties [address] [place] [address] Christian Aquino MD [address] [place] [address] Chronic respiratory failure with hypercapnia (CMS/HCC) (Primary Dx); Ventilator dependence (CMS/HCC); Duchenne muscular dystrophy (CMS/HCC); Healthcare maintenance Social History Tobacco Use Types Packs/Day Years Used Date Smoking Tobacco: Never Passive Smoke Exposure: Never Smokeless Tobacco: Never Alcohol Use Standard Drinks/Week Comments No 0 (1 standard drink = 0.6 oz pur e alcohol) PHQ-2 Answer Date Recorded Patient Health Questionnaire-2 Score 0 06/03/2023 CAGE ASSESSMENT Answer Date Recorded Cage unable [...] drink first t eder in the morning (EYE-LOSS CONTROL REPRESENTATIVE) to steady your nerves or to get [...] Sign Reading Time Taken Comments Blood Pressure 121/84 08/25/2023 2:51 PM EST Pulse 75 08/25/2023 2:51 PM EST Temperature 37 ??C (98.6 ??F) 08/25/2023 2:51 PM EST Respiratory Rate 18 08/25/2023 2:51 PM EST Oxygen Saturation 100% 08/25/2023 2:51 PM EST RA Inhaled Oxygen Concentration - - Weight 41.3 kg (91 lb) 08/25/2023 2:51 PM EST Height - - Body Mass Index 19.69 06/03/2023 1:23 PM EDT documented in this encounter Miscellaneous Notes * Progress Notes - Christian Aquino MD - 08/25/2023 3:20 PM EST [place] Prieto is a 28 y.o. male who presents for ongoing management to pulmonary outpatient clinic. Chief complaint: Follow-up Duchenne Muscular Dystrophy HPI: 28 YO M with DMD last seen by me as a follow-up telelhealth visit 12/2022 for management of his chronic mixed respiratory failure. At that visit, he was generally doing well, and had obtained ABG which was unremarkable. Nocturnal oximetry had been previously ordered but not performed; this was obtained in late December. Since last seen, he underwent colostomy creation 04/2023, which he tolerated well. He reports that he has been doing well from a respiratory standpoint and has no specific concerns today. He has not had any acute illnesses or hospitalizations since last seen. He is not having any concerns with his current ventilator settings and generally feels well. 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) Other disorders of lung Chronic pulmonary disease Personal history of other diseases of the circulatory system History of cardiomyopathy Personal history of other diseases of the digestive system History of gastritis Personal history of other diseases of the nervous system and sense organs History of sciatica Personal history of pneumonia (recurrent) History of pneumonia Past Surgical History: Procedure Laterality Date GASTROSTOMY TUBE PLACEMENT N/A Feeding Tube from [employer] SPINAL FUSION TYMPANOSTOMY TUBE PLACEMENT N/A Ear Pressure Equalization Tube, Insertion, Bilaterally from [employer] Family History Problem Relation Name Age of Onset Anesthesia problems Neg Hx Malig Hyperthermia Neg Hx Social History Socioeconomic History Marital status: Single Spouse name: Not on file Number of children: Not on file Years of education: Not on file Highest education level: Not on file Occupational History Not on file Tobacco Use Smoking status: Never Passive exposure: Never Smokeless tobacco: Never Vaping Use Vaping Use: Never used Substance and Sexual Activity Alcohol use: No Drug use: Never Comment: Drug use: No drug use Sexual activity: Not on file Other Topics Concern Not on file Social History Narrative Not on file Social Determinants of Health Financial Resource Strain: Not on file Food Insecurity: Not on file Transportation Needs: Not on file Physical Activity: Not on file Stress: Not on file Social Connections: Not on file Intimate Partner Violence: Not on file Housing Stability: Not on file Review of Systems Constitutional: Negative for activity change, chills and fever. HENT: Negative for congestion and postnasal drip. Eyes: Negative for redness and itching. Respiratory: Negative for cough, shortness of breath and wheezing. Cardiovascular: Negative for chest pain and palpitations. Objective: Physical Exam: Visit Vitals BP 121/84 Pulse 75 Temp 37 ??C (98.6 ??F) (Oral) Wt 41.3 kg (91 lb) SpO2 100% Comment: RA BMI 19.69 kg/m?? Physical Exam Vitals reviewed. Constitutional: General: He is not in acute distress. HENT: Head: Normocephalic and atraumatic. Mouth/Throat: Mouth: Mucous membranes are moist. Eyes: General: No scleral icterus. Conjunctiva/sclera: Conjunctivae normal. Cardiovascular: Rate and Rhythm: Normal rate and regular rhythm. Heart sounds: No murmur heard. No friction rub. No gallop. Pulmonary: Effort: Pulmonary effort is normal. No respiratory distress. Breath sounds: No wheezing, rhonchi or rales. Abdominal: General: Bowel sounds are normal. Palpations: Abdomen is soft. Lymphadenopathy: Cervical: No cervical adenopathy. Skin: General: Skin is warm and dry. Neurological: Mental Status: He is alert and oriented to person, place, and time. Mental status is at baseline. Psychiatric: Mood and Affect: Mood normal. Behavior: Behavior normal. Data: New Data Reviewed Personally By Me This Visit: Labs 05/16/2023: CBC 7.90>10.3/31.9<246 BMP 138/4.1 104/26 19/<0.11<125 CXR 05/15/2023: Right internal jugular line in place. No PTX. No acute pulmonary process. Overnight oximetry 01/09/2023: Time SpO2 <88%: 19.6 minutes SpO2 sil 79% Time below 85%: 1.6% Time below 80%: 0% Historical Data (personally re-reviewed by me today): ABG 06/10/2022: 7.46/35/99 TTE 04/2019: Limited study. EF grossly 35-45%, unchanged from 2018. TTE 01/2021: EF 35-45% ABG 12/2020: 7.42/34/85 Assessment and Plan: 28 y.o. M with: 1) Chronic hypercapneic respiratory failure requiring mechanical ventilation in setting of DMD: Symptomatically doing well on currently ventilatory support. Reviewed nocturnal oximetry, which does show some periods of mild hypoxia, though patient predominantly does well overnight and I suspect that his periods of hypoxia may correspond to REM as he has abrupt drops with gradual returns to baseline, likely reflecting the adaptive nature of his home ventilation mode. Given that he is tolerating his current settings well, I don't believe that adjusting his current settings is likely to provide clinically meaningful benefit, and will continue to monitor. - continue current ventilator settings - f/u 6 months via telehealth 2) Duchenne Muscular Dystrophy - as above 3) Health Maintenance - the patient has had the influenza vaccine - the patient is not fully vaccinated for COVID-19 and has not received a booster; this was recommended today but declined - the patient is not a candidate for LDCT screening for lung cancer - the patient has received appropriate vaccination for pneumococcal disease and vaccination does not need to be repeated The patient was given instructions to return to the clinic when testing is complete. No orders of the defined types were placed in this encounter. I personally spent a total of 31 minutes in direct care for this patient on the date of service. This time was spent on review of the chart, discussion with other providers, review of notes written by other providers, personal review of images and results of studies, history taking and review, review of systems, discussion with the patient, care planning and coordination, and the making of medical orders. 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
--- OUTSIDE RECORDS SUMMARY | 2024-09-29 14:25 | XMS_ITS | Encounter Summary ---
Author Organization Healthcare Address [address] [place], [place] [id number] Care Team Providers Care Costumer Name Role Phone Rhys Butts MD Primary Care Provider [phone] Encounter Details Date Type Department Care Team (Latest Contact Info) Description 08/25/2023 Travel Social History Tobacco Use Types Packs/Day [...] drink first t eder in the morning (EYE-PLANER OFF BEARER) to steady your nerves or to get [...] documented as of this encounter Care Teams Costumer Relationship Specialty Start Date End Date Rhys Butts MD [address] [place] [address] PCP - General 03/02/21 documented as of this encounter
--- OUTSIDE RECORDS SUMMARY | 2024-09-29 14:25 | XMS_ITS | Encounter Summary ---
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 Name Role Phone Rhys Butts MD Primary Care Provider [phone] Reason for Visit * Auth/Cert (Routine) Specialty Diagnoses / Procedures Referred By Contac t Referred To Contact Diagnoses Chronic idiopathic constipation Chronic idiopathic constipation [K59.04] Procedures OR COLOSTOMY CREATION, COLOSTOMY Won Santos MD [id number] [place] [address] Phone: tel: fax: [facility] [address] [place] [address] Phone: tel: Referral ID Status Reason Start Date Expiration Date Visits Re quested Visits Authorized [id number] 1 1 Encounter Details Date Type Department Care Team (Late st Contact Info) Description 05/14/2023 10:50 AM EDT - 05/17/2023 4:08 PM EDT Hospital Encounter [facility] [address] [place] [id number] Won Santos MD [id number] [place] [address] Muscular dystrophy, Duchenne (CMS/HCC) (Primary Dx); Chronic idiopathic constipation Discharge Disposition: Home or Self Care Social History Tobacco Use Types Packs/Day Years Used Date Smoking Tobacco: Never Passive Smoke Exposure: Never Smokeless Tobacco: Never Alcohol Use Standard Drinks/Week Comments No 0 (1 standard drink = 0.6 oz pur e alcohol) PHQ-2 Answer Date Recorded Patient Health Questionnaire-2 Score 0 03/25/2023 CAGE ASSESSMENT Answer Date Recorded Cage unable [...] drink first t 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 0 05/14/2023 CAGE Questionnaire Score 0 023 Sex and Gender Information Value Date Recorded Sex Assigned at Not on file Legal Sex Male 7:07 PM EDT Gender Identity Not on file Sexual Orientation Not on file documented as of this encounter Last Filed Vital Signs Vital Sign Reading Time Taken Comments Blood Pressure 105/74 05/17/2023 12:00 PM EDT Pulse 106 05/17/2023 9:37 AM EDT Temperature 35.6 ??C (96 ??F) 05/17/2023 12:00 PM EDT Respiratory Rate 18 05/17/2023 12:00 PM EDT Oxygen Saturation 94% 05/17/2023 12:00 PM EDT Inhaled Oxygen Concentration - - Weight 41.3 kg (91 lb) 05/14/2023 12:29 PM EDT Height 144.8 cm (4' 9 ) 05/14/2023 12:29 PM EDT Body Mass Index 19.69 05/14/2023 12:29 PM EDT documented in this encounter Discharge Instructions * Discharge Instructions* Rodrick Perdomo MD - 05/17/2023 10:13 AM EDT Images from the original note were not included. [facility] Department of Surgery Division of Colorectal Surgery Activity: Move around as you are able, do not lift over 5 lbs for 6 weeks after surgery Diet: You may continue your normal diet. Be sure to stay hydrated and take in plenty of fluid. Drain care: You do not have a drain. Medications: Take tylenol 650mg every 6 hours for pain, if you still have pain, take oxycodone, onetab every 6-8 hours as needed. Continue your home medications unless instructed otherwise at discharge. Wound care: It is okay to shower. Allow warm, soapy water to run over your incisions and pat dry with a clean towel. Do not submerge your incisions in a tub bath or body of water for two weeks after your operation. You have surgical glue over your incisions. Do not pick at this. It will come off onits own. Ostomy: Change your appliance twice weekly or when it is leaking. Change it as instructed by ostomyteaching nurses. Empty when it is 1/2 full. Keep track of the amount coming out until your follow up appointment. Follow up: You will follow up with Dr. Santos in 2 weeks. The clinic will call with an appointment time. Questions: Call the [facility] at [phone] during business hours on weekdays or call [facility]'s after hours at [phone] to speak with a resident broadcast operations manager for Colorectal surgery after 5pm or on weekends if: - you have a fever > 100.4F - you are vomiting and cannot keep down liquids - your pain cannot be controlled with oral medications - if you start to have increased redness, drainage of pus, swelling, or increased pain around your incision - you have changes to the appearance of your ostomy or you are no longer having output from your ostomy * Attachments The following attachments cannot be sent through Care Everywhere. * Acetaminophen Oral Capsule (Bruneian) * Methocarbamol tablets (Bruneian) * Giving an Emergency Dose of Naloxone for Opioid Overdose, Xvau-go-Exzk (Bruneian) * Oxycodone Oral Capsule (Bruneian) documented in this encounter Medications at Time of Discharge acetaminophen (Tylenol) 325 MG tablet Take 2 tablets (650 mg) by mouth every 6 (six) hours. 100 tablet 05/17/2023 bisoprolol (Zebeta) 5 MG tablet 1 tablet (5 mg) by Per G Tube route 1 (one) time each day. 12/18/2020 escitalopram (Lexapro) 10 MG tablet 1 tablet (10 mg) by Per G Tube route 1 (one) time each day. 03/21/2021 furosemide (Lasix) 20 MG tablet 1 tablet (20 mg) by Per G Tube route 1 (one) time each day in the morning. 12/18/2020 gabapentin (Neurontin) 250 MG/5ML solution 12.5 mL (625 mg) by Per G Tube route 3 (three) times a day. 04/25/2021 LORazepam (Ativan) 0.5 MG tablet 1 tablet (0.5 mg) by Per G Tube route every night. methocarbamol (Robaxin) 500 MG tablet Take 1 tablet (500 mg) by mouth every 6 (six) hours for 10 days. 40 tablet 05/17/2023 Mupirocin 2 % kit Apply topically. 12/19/2022 sacubitril-valsa rtan (Entresto) 49-51 MG tablet 1 tablet by Per G Tube route 2 (two) times a day. 02/17/2021 naloxone (Narcan) 4 mg/0.1 mL nasal spray 1. Give 1 spray in nostril for no/slow breathing or cannot wake after opioid use 2. Call 911 3. Repeat in other nostril if symptoms continue . 1 each 05/17/2023 4 oxyCODONE (Roxicodone) 10 MG immediate release tablet Take 0.5 tablets (5 mg) by mouth every 6 (six) hours if needed for severe pain for up to 5 days. 8 tablet 05/17/2023 3 documented as of this encounter Miscellaneous Notes * Progress Notes - Sandy Luo RN - 05/17/2023 4:08 PM EDT Case Management Discharge Note Dilshad Junior 27 y.o. 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: Primary Caregiver: Family Assistance Available at Discharge: Mom Housing Circumstances-Z Codes: Housing Circumstances (select all that apply): None Applicable Patient Referred to Financial or Community Resources: [employer] [facility] Discharge Facility/Level of Care Needs: home DME/Equipment Needed after Discharge: Equipment Currently Used at Home: wheelchair, power, shower chair, ventilator, suction, hospital/specialty bed Follow-up: Rhys Butts MD [address] [place] [facility] [address] Discharge Transportation: Mom Follow Up Transport: Mom Additional Comments: Pt d/c this past weekend. Final recs received from patient financial counselor. Information sent to [facility] [facility], pt to receive sample pack in the mail in 2-3 business days. Information and orders faxed to [facility] as they are in network with pt's insurance plan, confirmed on Friday. Nothing further needed atthis time. Sandy Luo, RN * Care Plan - Geneva Armas - 05/17/2023 3:54 PM EDT PICC line pulled, discharge instructions discussed with patient and family/caregiver(mother) * Care Plan - Geneva Armas - 05/17/2023 12:57 PM EDT Problem: Adult Inpatient Plan of Care Goal: Plan of Care Review Outcome: Ongoing, Progressing Goal: Patient-Specific Goal (Individualized) Outcome: Ongoing, Progressing Flowsheets (Taken 05/17/2023 0800) Patient/Family-Specific Goals (Include Timeframe): patient will have tolerable pain levels throughout the shift Individualized Care Needs: pain control Anxieties, Fears or Concerns: none * Discharge Summary - Rodrick Perdomo MD - 05/17/2023 10:15 AM EDT Images from the original note were not included. Hospitalization Admit Date/Time: 05/14/2023 10:50 AM Admitting Attending: Won Santos Discharge Date: 05/17/23 Discharge Attending Physician: Won Santos MD PCP name and Address: Rhys Butts MD [address] [place] [address] / [id number] Referring provider name and address: No referring provider defined for this encounter. Chief Concern, Brief History of Present Illness, and Hospital Course Dilshad Junior is a 27 y.o. male PMH Duchenne's muscular dystrophy, chronic respiratory failure with ventilator dependence, heart failure with last EF 49%, and G tube placement admitted post-operatively on 05/14 after undergoing a colostomy creation for his chronic constipation refractory to medicalmanagement. He tolerated the surgery without any complications. The patient has limited mobility at baseline due to his Duchenne's muscular dystrophy. He progressed appropriately during the post-operative period. His blood pressure ran around 90-100/50-70 during the hospitalization, but this is close to his baseline. On 05/17 he had appropriate ostomy output, was voiding spontaneously, and was tolerating PO intake without nausea or vomiting. We believe he has exceeded benefit of hospitalization. He is to follow up with Dr. Santos in 2 weeks at [facility]. Surgeries and Procedures CREATION, COLOSTOMY (N/A) Medication List . bisoprolol 5 MG tablet Commonly known as: Zebeta 1 tablet (5 mg) by Per G Tube route 1 (one) time each day. Entresto 49-51 MG tablet Generic drug: sacubitril-valsartan 1 tablet by Per G Tube route 2 (two) times a day. escitalopram 10 MG tablet Commonly known as: Lexapro 1 tablet (10 mg) by Per G Tube route 1 (one) time each day. furosemide 20 MG tablet Commonly known as: Lasix 1 tablet (20 mg) by Per G Tube route 1 (one) time each day in the morning. gabapentin 250 MG/5ML solution Commonly known as: Neurontin 12.5 mL (625 mg) by Per G Tube route 3 (three) times a day. HYDROcodone-acetaminophen 5-325 MG tablet Commonly known as: Solomons 1 tablet (5 mg of hydrocodone) by Per G Tube route if needed for moderate pain or severe pain. LORazepam 0.5 MG tablet Commonly known as: Ativan 1 tablet (0.5 mg) by Per G Tube route every night. Discharge Diagnosis Medical Problems Active and Resolved Hospital Problems Hospital Muscular dystrophy, Duchenne (CMS/HCC) * (Principal) Chronic idiopathic constipation Post Discharge Instructions [facility] of Medicine Department of Surgery Division of Colorectal Surgery Activity: Move around as you are able, do not lift over 5 lbs for 6 weeks after surgery Diet: You may continue your normal diet. Be sure to stay hydrated and take in plenty of fluid. Drain care: You do not have a drain. Medications: Take tylenol 650mg every 6 hours for pain, if you still have pain, take oxycodone, onetab every 6-8 hours as needed. Continue your home medications unless instructed otherwise at discharge. Wound care: It is okay to shower. Allow warm, soapy water to run over your incisions and pat dry with a clean towel. Do not submerge your incisions in a tub bath or body of water for two weeks after your operation. You have surgical glue over your incisions. Do not pick at this. It will come off onits own. Ostomy: Change your appliance twice weekly or when it is leaking. Change it as instructed by ostomyteaching nurses. Empty when it is 1/2 full. Keep track of the amount coming out until your follow up appointment. Follow up: You will follow up with Dr. Santos in 2 weeks. The clinic will call with an appointment time. Questions: Call the [facility] at [phone] during business hours on weekdays or call [facility]'s after hours at [phone] to speak with a resident broadcast operations manager for Colorectal surgery after 5pm or on weekends if: - you have a fever > 100.4F - you are vomiting and cannot keep down liquids - your pain cannot be controlled with oral medications - if you start to have increased redness, drainage of pus, swelling, or increased pain around your incision - you have changes to the appearance of your ostomy or you are no longer having output from your ostomy Outpatient Follow-Up Future Appointments Date Time Provider Department Center 06/30/2023 2:00 PM Christian Aquino MD [facility] 07/08/2023 1:00 PM Dane Gabriel [facility] Pertinent Physical Exam At Time of Discharge Physical Exam General: No acute distress. Resting comfortably. HEENT: NCAT, MMM. Trachea midline. Nasal ventilator mask in place. Cardiovascular: Regular rhythm, normal rate, slight hypotension. Respiratory: Symmetric chest expansion, non-labored breathing. VPAP in place. Abdomen: Soft, nontender, mild distension. No rebound tenderness, guarding or peritonitis. Ostomy appears healthy and above the skin with minimal liquid output. G-tube in LUQ Skin: Skin is well perfused with good turgor and no rash. Musculoskeletal: Contracture of upper and lower extremities, muscular atrophy present, no limb swelling. Neuro: Awake, alert, oriented x 3. GCS 15. Discharge Disposition/Condition Disposition: Home Condition: Stable (s/sx potential problems absent or manageable) I spent >30 minutes of patient care and instruction time in preparation for this discharge. Rodrick Perdomo MD General Surgery, PGY-1 Cosigned by Won Santos MD at 05/19/2023 7:44 AM EDT Associated attestation - Won Santos MD - 05/19/2023 7:44 AM EDT I saw and evaluated the patient with the resident/fellow. I discussed the case with the resident/fellow and agree with the findings and plan as documented. * Care Plan - Radha Suarez - 05/17/2023 4:39 AM EDT Problem: Adult Inpatient Plan of Care Goal: Plan of Care Review Outcome: Ongoing, Progressing Flowsheets (Taken 05/17/2023 0438) Progress: improving Plan of Care Reviewed With: parent Goal: Patient-Specific Goal (Individualized) Outcome: Ongoing, Progressing Flowsheets (Taken 05/16/20231999) Patient/Family-Specific Goals (Include Timeframe): Patient will be kept safe, free from falls throughout the shift and will feel rested. Individualized Care Needs: safety, comfort Anxieties, Fears or Concerns: none addressed Goal: Absence of Hospital-Acquired Illness or Injury Outcome: Ongoing, Progressing Goal: Optimal Comfort and Wellbeing Outcome: Ongoing, Progressing Goal: Readiness for Transition of Care Outcome: Ongoing, Progressing * Consults - Barbra Yoon RD - 05/16/2023 4:54 PM EDTAssociated Order(s): IP CONSULT TO NUTRITION SERVICES Nutrition Education Consult Met with pt and mother to provide ostomy nutrition instruction, per consult: GI soft, low fiber meal planning x 6-8 weeks, followed by a gradual reintroduction of higher fiber foods as tolerated, or as otherwise instructed by provider/team. Discussed food/beverage selection, cooking/preparation techniques, thorough chewing of all foods, appropriate texture/consistency, and fluid/nutrient adequacy. Pt will continue to use PEG for tube feeding, and will have PO for pleasure. Reviewed pt's favorite foods, and discussed appropriateness of those foods/modifications to make them safer or more tolerable. Pt's mom stated that the pt already chews his foods completely, for fear of choking. Encouraged and provided [place] handout, with RD contact information for further questions. Barbra Yoon RD * Care Plan - Geneva Armas - 05/16/2023 3:58 PM EDT Problem: Adult Inpatient Plan of Care Goal: Patient-Specific Goal (Individualized) Outcome: Ongoing, Progressing Flowsheets (Taken 05/16/2023 0800) Patient/Family-Specific Goals (Include Timeframe): pt and family will demonstrate understanding of ostomy care Individualized Care Needs: ostomy care Anxieties, Fears or Concerns: leaking ostomy bag Goal: Absence of Hospital-Acquired Illness or Injury Outcome: Ongoing, Progressing Goal: Optimal Comfort and Wellbeing Outcome: Ongoing, Progressing * Hospital Course - Rodrick Perdomo MD - 05/16/2023 3:13 PM EDT Dilshad Junior is a 27 y.o. male PMH Duchenne's muscular dystrophy, chronic respiratory failure with ventilator dependence, heart failure with last EF 49%, and G tube placement admitted post-operatively on 05/14 after undergoing a colostomy creation for his chronic constipation refractory to medicalmanagement. He tolerated the surgery without any complications. The patient has limited mobility at baseline due to his Duchenne's muscular dystrophy. He progressed appropriately during the post-operative period. His blood pressure ran around 90-100/50-70 during the hospitalization, but this is close to his baseline. On 05/17 he had appropriate ostomy output, was voiding spontaneously, and was tolerating PO intake without nausea or vomiting. We believe he has exceeded benefit of hospitalization. He is to follow up with Dr. Santos in 2 weeks at [facility]. * Progress Notes - Sandy Luo RN - 05/16/2023 12:41 PM EDT Case Management Adult Initial Progress Note Dilshad J Cruzalexa 27 y.o. 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 PCP: Grecia Mireles Emergency Contact: Extended Emergency Contact Information Primary Emergency Contact: phillip li Mobile Relation: Mother Preferred language: Bruneian Management Assistant needed? No Insurance: Primary Visit Coverage Payer Plan Sponsor Code Group Number Group Name [place] Primary Visit Coverage Subscriber Subscriber ID Subscriber Name Subscriber N Subscriber Address [id number] DILSHAD JUNIOR [id number] [address] [place] [place] [id number] Patient information: Primary Caregiver: Family Accompanied by/Relationship: Mom Support System: Immediate family Daily Living Activities: Functional Status: Maximum assistance Living Arrangements: Parent/Gaurdian, Family Type of Residence: Single Level [address] [place] [address] Current DME: Equipment Currently Used at Home: wheelchair, power, shower chair, ventilator, suction, hospital/specialty bed Income Information: Current Resources Utilized: Waiver Program Housing Circumstances-Z Codes: Housing Circumstances (select all that apply): None Applicable Anticipated Discharge Date: unknown Patient's Discharge Goal: home Assistance Available at Discharge: Mom Discharge Transport: Mom Follow Up Transport: Mom Home Health / Home Infusion / Outpatient Dialysis Services: Living Will/Advance Directive/Power of Fitting Room Associate /Guardian: Unable to assess: No Have you reviewed your Advance Directive and is it valid for this stay?: Yes Advance Directive: Patient has advance directive, copy in chart Type of Healthcare Directive: Durable power of loom repairer for health care, Health care treatment directive Information Provided on Healthcare Directives: No Pre-existing DNR/DNI Order: No Patient Requests Assistance: No Additional Comments: Pt admitted for chronic constipation, new ostomy. Met with pt and family at , verified information. Pt has a PCP, Sia Mireles, with the last visit approx a few months ago. Pt lives with his Mom, Step-Dad, and sister, who are able to provide assistance at home if needed. His Mom is his primary caregiver. Pt has [employer] as his insurance. Transportation home will be provided by his Mom. Pt has listed his Mom, Phillip Li, as his emergency contact, phone # [phone]. Pt obtains medications from [facility]. Pt currently has a power chair, shower chair, ventilator, suction machine, tube feeds and a hospital bed that he uses all equipment. He is not receiving HH services. Latrice [facility], pt interested, obtained consent, will send information when available. Called [facility], spoke to [facility], verified they are in network with pt's insurance plan. Will send orders and information when available. Pt has declined hh services at this time. Will continue to follow and assist with d/c needs as they arise. Sandy Luo RN * Progress Notes - Delicia Rudolph RN - 05/16/2023 10:32 AM EDT Images from the original note were not included. Ostomy Progress Note Visit Date: 05/16/2023 Patient Name: Dilshad Junior Date of : 1995 His mother changed the pouch with standby assist. Eduction RN teach pouch emptying and ostomy appliance change. Patient and/or caregiver demonstrated pouch emptying. Patient and/or caregiver demonstrated appliance change prior to discharge. All of patient's current ostomy questions answered. RN taught patient to apply thin layer of stoma powder and to seal powder with b arrier film to treat redness and irritation of pouching surface. Patient given tip sheet with contact numbers. Patient given picture instructions. Patient taught how to use the flat barrier ring. Patient given a list of recommended products for home. Patient given 3 to 5 pouches, skin prep, powder, and ring/paste until home supplies arrive. Wound Ostomy Assessment: Colostomy RLQ (Active) 05/14/23 1536 RLQ Present on Admission: No Earliest Known Present: 05/14/23 Placed by External Staff?: Inserted by: Dr. Won Santos Hand Hygiene Completed: Yes Colostomy Type: Stoma Size (cm): Earliest Known Removed: Removal Reason : Wound Image 05/16/23 1006 Stomal Appliance Flat Ring 05/16/23 1006 Site Assessment Red 05/16/23 1006 Peristomal Assessment Other (Comment) (blister to edge) 05/16/23 1006 Treatment Placement checked;Site care 05/16/23 0345 Output (mL) 175 mL 05/16/23 1006 Gastric Output Appearance Loose 05/16/23 1006 Gastric Output Color Green 05/16/23 1006 HOME RECOMMENDATION Appliance Cera 2 3/4 cut to fit wafer Pouch with filter 57336 Accessories Cavilon skin prep 3342 Powder 7906 Luis adhesive remover 7760 Lubricating deodorant 47640 Elastic barrier strips 54683 Luis ostomy ring cera 2 8805 Delicia Rudolph RN 05/16/2023 10:32 AM * Progress Notes - Tj Cherry - 05/16/2023 10:29 AM EDT Colorectal Surgery Daily Progress Note Subjective: Overnight, the nursing staff had concerns about his blood pressure being too low. His systolic BP was in the 80s but the patient remained asymptomatic. He also had some blood oozing from his stoma. This morning, Mr. Junior said he felt a little sore but was otherwise doing well. He got into the chair yesterday and reports no issues. He started having a small amount of ostomy output and his mothersays he started passing flatus into the bag. His mother also reports that his blood pressure is always pretty low, with the systolic BP typically in the 90s. Objective: Vitals: 05/16/23 0800 BP: (!) 77/53 Pulse: 76 Resp: 18 Temp: 36.4 ??C (97.6 ??F) SpO2: 99% Physical Exam General: No acute distress. Resting comfortably. HEENT: NCAT, MMM. Trachea midline. Nasal ventilator mask in place. Cardiovascular: Regular rhythm, normal rate, slight hypotension. Respiratory: Symmetric chest expansion, non-labored breathing. VPAP in place. Abdomen: Soft, nontender, mild distension. No rebound tenderness, guarding or peritonitis. Ostomy appears healthy and above the skin with minimal liquid output. G-tube in LUQ Skin: Skin is well perfused with good turgor and no rash. Musculoskeletal: Contracture of upper and lower extremities, muscular atrophy present, no limb swelling. Neuro: Awake, alert, oriented x 3. GCS 15. Laboratory Results CBC: WBC (7.90), Hgb (10.3 (L)), Hct (31.9 (L)), Plt (246) Chemistry: Na (138), K (4.1), Cl (104), HCO3 (26), BUN (19), Cr (<0.11 (L)), Glu (125 (H)), Ca (8.9) Imaging No new imaging. Assessment and Plan: Dilshad Junior is a 27 y.o. male with history of Duchenne's muscular dystrophyc/b ventilator dependent chronic respiratory failure and HFrEF who underwent colostomy creation forhis chronic constipation on 05/15. He is doing well post-operatively, his stoma looks healthy and above the skin with minimal liquid output. He has post-operative pain which is controlled with Oxycodone. His blood pressure has been running 77-106/53-70 but the patient remains asymptomatic without headaches, dizziness, or tachycardia. We will continue to monitor his blood pressure. Plan for today is as follows: - Continue ventilator support - Keep internal jugular line and monitor for oozing - Monitor blood pressure; holding home Bisoprolol and Entresto due to low BP - OOBTC - Continue routine post-operative care Tj Cherry MS4 Cosigned by oWn Santos MD at 05/19/2023 7:48 AM EDT Associated attestation - Won Santos MD - 05/19/2023 7:48 AM EDT I saw and evaluated the patient with the medical/LEARNING PROGRAM MANAGER/PA student. I discussed the case with the medical/LEARNING PROGRAM MANAGER/PA student and agree with the findings and plan as documented. I personally performed the Examand Medical Decision Making. Mr. Junior is a 27-year-old male status post colostomy creation in the setting of Duchenne's musculardystrophy with chronic constipation. Doing well. PLAN FOLLOWS: Continue postoperative care. * Care Plan - Geneva Armas - 05/15/2023 5:12 PM EDT Problem: Adult Inpatient Plan of Care Goal: Plan of Care Review Outcome: Ongoing, Progressing Goal: Patient-Specific Goal (Individualized) Outcome: Ongoing, Progressing Flowsheets (Taken 05/15/2023 0800) Patient/Family-Specific Goals (Include Timeframe): patient will have tolerable pain levels throughout the shift Individualized Care Needs: pain control Anxieties, Fears or Concerns: none Goal: Absence of Hospital-Acquired Illness or Injury Outcome: Ongoing, Progressing Goal: Optimal Comfort and Wellbeing Outcome: Ongoing, Progressing Goal: Readiness for Transition of Care Outcome: Ongoing, Progressing * Consults - Alanna Escalera RD - 05/15/2023 1:27 PM EDT Adult Nutrition Evaluation Note Dilshad Junior 27 y.o. male CSN: [id number] Room/Bed 120/120A Nutrition evaluation type: assessment Reason for evaluation: nurse consult Hospital course: 27 y o M with PMH Duchenne's muscular dystrophy, with subsequent chronic constipation and overflow incontinence, admitted 05/14/23 s/p fecal disimpaction & colostomy creation. Past medical/ surgical history: Past Medical History: Diagnosis Date Failure to [...] history of pneumonia (recurrent) History of pneumonia * Duchenne's muscular dystrophy c/b ventilator dependent chronic respiratory failure and HFrEF Past Surgical History: Procedure Laterality Date GASTROSTOMY TUBE PLACEMENT N/A Feeding Tube from [employer] SPINAL FUSION TYMPANOSTOMY TUBE PLACEMENT N/A Ear Pressure Equalization Tube, Insertion, Bilaterally from [employer] Social history: Social History Tobacco Use Smoking status: Never Passive exposure: Never Smokeless tobacco: Never Vaping Use Vaping Use: Never used Substance Use Topics Alcohol use: No Drug use: Never Comment: Drug use: No drug use * Per notes, Mother is primary caregiver Additional comments: Spoke with pt mother who reported that pt likes to snack on junk foods like potato chips, cheese & crackers, tater tots, etc., & he likes mashed potatoes. Reported TF regimen of Nutren 2.0 cyclic TF ~14 hrs at noc with goal of 3.5 cans/d; she adjusts rate based on bloating / GI sx. Endorsed stable wt. No questions or concerns at this time. Vitals and Basic Assessment: BP: 106/76 Temp: 36.5 ??C (97.7 ??F) Oxygen Therapy: Supplemental oxygen O2 Delivery Method: CPAP prongs [place] Coma Scale Score: 15 Harjeet Scale Score: 13 - abd incision Ostomy output: 05/14: 30 mL Allergies: NKA Medications: acetaminophen, 650 mg, Oral, q6h bisoprolol, 5 mg, Per G Tube, Daily chlorhexidine, 15 mL, Mouth/Throat, 4x daily escitalopram, 10 mg, Per G Tube, Daily furosemide, 20 mg, Per G Tube, q AM gabapentin, 625 mg, Per G Tube, TID lidocaine, 1 patch, Apply externally, Daily LORazepam, 0.5 mg, Per G Tube, Nightly methocarbamol, 500 mg, Oral, q6h ANDREY Povidone-Iodine, 1 Swab, Nasal, Daily sacubitril-valsartan, 1 tablet, Per G Tube, BID PRN medications: oxyCODONE Meds were reviewed: Yes Labs: No lab exists for component: ALB No results found for: MG No results found for: ALT , AST , GGT , ALKPHOS , BILITOT No results found for: PROT , ALBUMIN No results found for: PREALBUMIN No results found for: CRP No results found for: HGBA1C No results found for: CHOL No results found for: HDL No results found for: LDLCALC No results found for: TRIG Anthropometrics: Height: 144.8 cm Weight: 41.3 kg Weight History: Wt Readings from Last 30 Encounters: 05/14/23 41.3 kg (91 lb) 03/25/23 40.8 kg (90 lb) 03/25/23 40.8 kg (90 lb) 02/25/23 40.8 kg (90 lb) 12/18/22 40.8 kg (90 lb) 06/10/22 40.8 kg (90 lb) 05/28/22 40.8 kg (90 lb) 12/26/21 41.3 kg (91 lb) 08/23/21 41.3 kg (91 lb) 10/05/20 40.8 kg (89 lb 15.9 oz) 07/25/20 40.8 kg (89 lb 15.9 oz) 06/22/20 44.4 kg (97 lb 15.9 oz) 02/10/20 40.8 kg (89 lb 15.9 oz) 12/10/19 40.8 kg (89 lb 15.9 oz) 08/11/19 41.7 kg (92 lb) 05/21/19 40.8 kg (89 lb 15.9 oz) 05/04/19 40.4 kg (89 lb) 02/11/19 40.8 kg (89 lb 15.9 oz) 12/08/18 40.8 kg (89 lb 15.9 oz) 08/13/18 40.8 kg (89 lb 15.9 oz) 05/04/18 40.8 kg (89 lb 15.9 oz) 01/07/18 40.8 kg (89 lb 15.9 oz) 11/25/17 40.8 kg (89 lb 15.9 oz) 10/08/17 40.8 kg (89 lb 15.9 oz) 06/04/17 40.8 kg (89 lb 15.9 oz) 05/20/17 40.8 kg (89 lb 15.9 oz) 03/05/17 40.8 kg (89 lb 15.9 oz) 01/08/17 40.8 kg (89 lb 15.9 oz) 08/21/16 40.4 kg (89 lb 2.1 oz) 07/29/16 39.5 kg (87 lb 1.3 oz) -Wt range 87-97# x 6 years IBW: 44.8 kg %IBW: 92.2 Adjusted Body Weight: N/A BMI: 19.7 Wt evaluation: Normal Estimated Needs: Kcal: 35-40 kcal/kg (1446- 1652 kcal/d) Protein: 1.3-1.6 g/kg (54-66 g/d) Based on: Admit wt 41.3 kg Current Nutrition Intake: Diet: Easy to Chew, Ostomy Supplements: none Intake: 0% of 2 recorded meals since admit Nutrition Support: Tube Feeding Route: PEG (per mother report) Active Enteral Regimen: Nutren 2.0 @ 25 mL/hr x 14 hrs (350 mL/d) Provides: 700 kcal, 29 g Pro, 242 mL FW/d Avg enteral infusion: establishing Diet Experience & Nutrition History: Nutrition Regimen RADIOLOGY TECH: po for pleasure + 3.5 cans Nutren 2.0 via PEG daily (administered cyclic at [facility]) Diet Education: Will monitor appropriateness of Ostomy diet education Pertinent Home Medications: Lasix Nutrition Focused Physical Exam: Physical exam performed on (date): not appropriate with pt PMH Assessment of Malnutrition: Nutrition Problem: Altered GI function related to constipation as evidenced by requiring ostomy creation. Status of Nutrition Diagnosis: New Nutrition Interventions and Recommendations: -Defer diet texture to team (currently Easy to Chew) -Continue with Ostomy diet modification -Consulting for nutrition education -As medically appropriate, increase goal rate of Nutren 2.0 to 60 mL/hr x 14 hrs (840 mL/d) -Provides 1680 kcal, 71 g Pro, 581 mL FW/d -FW management per team -Recommend weekly weight monitoring Nutrition Monitoring and Goals: -Monitor tolerance and adequacy of po intake / enteral infusion, wt changes, bowel fxn, labs, skin integrity; and follow up per acuity -Pt will meet >80% kcal & protein needs Acuity Level: [address] * Progress Notes - Delicia Rudolph RN - 05/15/2023 1:25 PM EDT Ostomy Progress Note Visit Date: 05/15/2023 Patient Name: Dilshad Junior Date of : 1995 Patient with recent colostomy secondary to idiopathic constipation from Duchenne's muscular dystrophy. His mother is his primary caregiver, she was bedside. Patient engage din educational session andasking questions. Will follow up with patient for hands on instruction and home appliance recommendations. Eduction Ostomy Discharge Teaching Packet and/or Ostomy DVD given to patient and/or caregiver. Ostomy Discharge Teaching and/or Ostomy DVD reviewed with patient and/or caregiver. All of patient's current ostomy questions answered. Discussed normal stoma characteristics. Discussed GI output following surgery. Wound Ostomy Assessment: Colostomy RLQ (Active) 05/14/23 1536 RLQ Present on Admission: No Earliest Known Present: 05/14/23 Placed by External Staff?: Inserted by: Dr. Won Santos Hand Hygiene Completed: Yes Colostomy Type: Stoma Size (cm): Earliest Known Removed: Removal Reason : Stomal Appliance 2 piece 05/15/23 1325 Site Assessment Raised;Red 05/15/23 1325 Peristomal Assessment Clean;Intact 05/15/23 1200 Output (mL) 30 mL 05/15/23 0500 Delicia Rudolph RN 05/15/2023 1:26 PM * Progress Notes - Tj Cheryr - 05/15/2023 7:29 AM EDT Colorectal Surgery Daily Progress Note Subjective: NAEO. Yesterday in the PACU, the patient's internal jugular line was pulled partially out with some oozing which has subsided. CXR demonstrated good placement of the line and it is currently functioning appropriately. This morning, the patient reports he has some pain with movements, but otherwise has no concerns. He denies nausea or vomiting. Objective: Vitals: 05/15/23 0300 BP: 106/78 Pulse: 102 Resp: 26 Temp: 36.8 ??C (98.2 ??F) SpO2: 95% Physical Exam General: No acute distress. Resting comfortably. HEENT: NCAT, MMM. Trachea midline. Nasal ventilator mask in place. Cardiovascular: Regular rhythm, tachycardic, normotensive. Respiratory: Symmetric chest expansion, non-labored breathing. VPAP in place. Abdomen: Soft, nontender, mild distension. No rebound tenderness, guarding or peritonitis. Ostomy appears healthy and above the skin with no output. G-tube in LUQ Skin: Skin is well perfused with good turgor and no rash. Musculoskeletal: Contracture of upper and lower extremities, muscular atrophy present, no limb swelling. Neuro: Awake, alert, oriented x 3. GCS 15. Laboratory Results No new laboratory results Imaging No new imaging. Assessment and Plan: Dilshad Junior is a 27 y.o. male with history of Duchenne's muscular dystrophyc/b ventilator dependent chronic respiratory failure and HFrEF who who underwent colostomy creationfor his chronic constipation on 05/15. He is doing well post-operatively and his stoma looks healthyand above the skin but does not have output yet. He has post-operative pain which is controlled with Oxycodone. His internal jugular line is no longer oozing and continues to function appropriately. The patient had bleeding with subcutaneous heparin yesterday so we will not start heparin at this time. Plan for today is as follows: - Continue ventilator support - Keep internal jugular line and monitor for oozing - OOBTC - Needs ostomy teaching - Continue routine post-operative care Tj Cherry MS4 Cosigned by Won Santos MD at 05/15/2023 2:53 PM EDT Associated attestation - Won Santos MD - 05/15/2023 2:53 PM EDT I saw and evaluated the patient with the medical/LEARNING PROGRAM MANAGER/PA student. I discussed the case with the medical/LEARNING PROGRAM MANAGER/PA student and agree with the findings and plan as documented. I personally performed the Examand Medical Decision Making. Mr. Junior is a 27-year-old male status post colostomy creation in the setting of chronic constipation with underlying Duchenne's muscular dystrophy. PLAN FOLLOWS: Continue postoperative care. * Care Plan - Luis Nails - 05/15/2023 3:41 AM EDT Problem: Adult Inpatient Plan of Care Goal: Plan of Care Review Outcome: Ongoing, Progressing Goal: Patient-Specific Goal (Individualized) Outcome: Ongoing, Progressing Goal: Absence of Hospital-Acquired Illness or Injury Outcome: Ongoing, Progressing Goal: Optimal Comfort and Wellbeing Outcome: Ongoing, Progressing Goal: Readiness for Transition of Care Outcome: Ongoing, Progressing * Significant Event - Lakesha Chen MD - 05/15/2023 12:22 AM EDT Images from the original note were not included. [facility] Department of Surgery Division of Colorectal Surgery Post Operative Check: Subjective: Procedure: Colostomy creation, fecal disimpaction Patient currently reports mild abdominal pain. Right CVC was partially pulled out in PACU, it stilldraws blood, no significant bleeding. Denies CP, SOA, CABRERA's, N/V. Pain Control: PO MMPC Objective: Vitals: Vitals: 05/14/232037 BP: 111/63 Pulse: (!) 129 Resp: 18 Temp: 37.1 ??C (98.7 ??F) SpO2: 97% Physical Exam: GEN: No apparent distress. Interactive. NEURO: Awake, alert and oriented x3. No focal deficits. HENT: NCAT. Trachea appears midline. Trilogy vent mask in place. EYES: Symmetric lids. No visible conjunctival hemorrhage. CV: Appears well-perfused. Regular rhythm. Normal rate. RESP: Symmetric chest rise. Non-labored breathing. ABD: Abdomen soft, mildly distended. Ostomy is edematous but is well perfused, above the skin. No new oozing around ostomy/underneath ostomy appliance. MSK: B/l UE/LE movement limitations, bilateral hand contractures. SKIN: Warm and dry. Without pallor. PSYCH: Appropriate mood and affect. Normal speech and content. LTD: R CVC, gastrostomy Labs: WBC ?? Hgb ?? PLT ?? HCT ?? INR ?? PTT ?? antiXa ?? Na ?? Cl ?? BUN ?? Gluc ?? K ?? CO2 ?? Creat ?? Ca ?? iCa ?? Mg ?? Phos ?? pH ?? pCO2 ?? pO2 ?? SPO2 ?? FIO2 ?? HCO3 ?? BE ?? Lactate ?? AST ?? AlkPhos ?? T Prot ?? ALT ?? Bili ?? Alb ?? D.Bili ?? Assessment and Plan: Dilshad Junior is a 27 y.o. male who is s/p colostomy creations and is recovering appropriately in the current post op period. Prior oozing of his CVC and ostomy site have stabilized. Will continue to monitor. Diet: GI Ostomy Anticoagulation/DVT ppx: SCDs Pain management: oral MMPC Level of care: Continue Current Level of Care I have answered and addressed all issues and concerns from the patient and nursing staff. I have notified senior resident/attending broadcast operations manager with any issues or concerns. Lakesha Chen MD PGY-1 * Significant Event - Marta Cazares - 05/14/2023 6:45 PM EDT While adjusting the pt's headstrap for CPAP/BiPAP, the pt's father accidentally pullled approx 5 of the IJIV out. In addition, the site has been slowly oozing since arrival to PACU. The team was notified and will come to bedside to assess. No new orders given. WCTM. * Anesthesia PACU Signout - Aurelio Alonzo CRNA - 05/14/2023 4:26 PM EDT Patient: Dilshad Junior Anesthesia Type: general Vitals Value Taken Time BP 124/85 05/14/23 1625 Temp 36.4 05/14/23 1626 Pulse 112 05/14/23 1625 Resp 23 05/14/23 1625 SpO2 100 % 05/14/23 1625 Vitals shown include unvalidated device data. Anesthesia PACU Signout Patient location during evaluation: PACU Patient participation: complete - patient participated Level of consciousness: baseline and awake Pain management: adequate (pain score 0-3) Airway patency: natural airway Hydration status: acceptable PONV: none Cardiovascular status: acceptable Respiratory status: acceptable, BIPAP, CPAP, spontaneous ventilation and nonlabored ventilation (patient extubated to home baseline cpap machine) Discharge Disposition: admit to inpatient unit * Op Note - Won Santos MD - 05/14/2023 3:08 PM EDT [facility] Colon [facility] Rectal Surgery Operative Note JS Tom BOJORQUEZ FACS FASCRS Patient: Dilshad Junior : 1995 Date of Procedure: 05/14/2023 Admit Date: 05/14/2023 Facility Location: [place] [facility] Pre-Operative Diagnosis: Chronic idiopathic constipation. Duchenne muscular dystrophy. Cardiomyopathy. Chronic respiratory failure with ventilator dependence. Post-Operative Diagnosis: Same. Procedure: Colostomy creation. Fecal disimpaction. Attending Surgeon: Raz Santos MD FACS FASCRS (present throughout entire procedure). Resident Surgeon: Mary Anne Giang DO. Surgery Team: * Won Santos - Primary Anesthesia Team: Anesthesiologist: Larry Bowden MD ASSISTANT GUEST SERVICES MANAGER: Aurelio Alonzo CRNA Anesthesia Type: General ASA Class: III Case Length: 2 Hr 19 Min 54 Sec Est Blood Loss: Minimal. Specimen: @SPECIMENDESCRIPTION@ Complications: None. Operative Description Indications: Mr. Dilshad Junior is a 27 y.o. male evaluated for surgical management of idiopathic constipation. History of Duchenne muscular dystrophy. Difficult bowel regimen and difficult perianal hygiene. Presented to clinic with family to discuss the potential benefit of colostomy creation. Scheduled for colostomy creation. Discussion was completed regarding surgical options during a pre- operative clinic visit; discussion specifically included scope of procedure. All risks, benefits, goals, and alternatives were discussed with . Dilshad Junior. Patient agreed to above stated procedures. Findings: Redundant sigmoid colon. Sigmoid colostomy brought to the right lower abdomen. Fecal disimpaction performed. Operative Procedure (Narrative): SCIP INF-1: Prophylactic abx prior: Cefoxitin 2g IV. SCIP INF-10: Perioperative temperature control: Yes. SCIP VTE-2: Appropriate VTE prophylaxis: Bilateral SCDs. Patient was properly identified and consent was obtained. Patient was brought to the operating room. Transferred to the operating room table. GETA was administered. Patient was placed in the supine position. Abdomen was prepped and draped in standard surgical fashion. Visual inspection demonstrateddistorted abdomen secondary to contractures from Duchenne muscular dystrophy. Existing G- tube in place. Palpation of the abdominal wall demonstrated a hard mass consistent with fecal impaction. Manual disimpaction performed. Large volume stool was evacuated from the rectum. Midline abdominal incision was made at the level of the umbilicus. Abdominal wall was noted to be thin. Entry without difficulty. Sigmoid colon was easily identified in the left lower quadrant. Mobile. Stoma site created in the right mid abdomen. Sigmoid colon was easily brought up to the stoma site. Orientation was confirmed. Midline fascia closed. Skin closed. Colostomy matured. Patient tolerated the procedure well. Patient was transferred to the post anesthetic care unit without surgical or anesthetic complication. PLAN FOLLOWS: Admit. Addendum: Operative findings discussed with family after procedure. All questions answered. Expectations regarding postoperative instructions and postoperative recovery discussed. * Nursing Note - Mary Walters - 05/14/2023 1:39 PM EDT Anesthesia attempted to get IV but was unable. Will get in OR * H&P - Mary Anne Giang DO - 05/14/2023 11:43 AM EDT Images from the original note were not included. Chief Concern & History Of Present Illness Dilshad Junior is a 27 y.o. male presenting for colostomy creation. Family and Dilshad deny any newmedications or medical problems since his visit in March. Nutrition: eats for pleasure, Nutren 2.0 via G tube at 48-53cc/hr over 14hrs at night (approx. 3 cans per day) Continuous mechanical ventilation, different settings for chair or laying flat. -laying flat: AVAPS-AE, TV 400, pressure 15/6, backup rate 5, intrinsic RR approx. 18, max nonpbina38 cmH2O -chair mode: AC, TV 700, Ti 1.2 Family states he has contractures in most joints Past Medical History He has a past medical history of Failure to thrive (child), Other disorders of lung, Personal history of other diseases of the circulatory system, Personal history of other diseases of the digestive system, Personal history of other diseases of the nervous system and sense organs, and Personal history of pneumonia (recurrent). Surgical History He has a past surgical history that includes Tympanostomy tube placement (N/A); Gastrostomy tube placement (N/A); and Spinal fusion. Family History Family History Problem Relation Name Age of Onset Anesthesia problems Neg Hx Malig Hyperthermia Neg Hx Social History He reports that he has never smoked. He has never been exposed to tobacco smoke. He has never used smokeless tobacco. He reports that he does not drink alcohol and does not use drugs. Occupational History Employer: No address on file. Travel History Relevant International Travel History: Travel Screening No screening recorded since 05/13/23 1050 Travel History Travel since 04/14/23 No documented travel since 04/14/23 Relevant Domestic Travel History: N/A Immunizations not reviewed VACCINE/DOSE DATE Flu 10/01/2017 Tetanus Pneumovax Shingles Allergies Patient has no known allergies. Medications Current Facility-Administered Medications Medication Dose Route Frequency Provider Last Rate Last Admin cefOXitin (Mefoxin) 2 g in sodium chloride 0.9% 100 mL IVPB (Mini-Bag Plus) 2 g Intravenous Once Mary Anne Giang DO Followed by cefOXitin (Mefoxin) 2 g in sodium chloride 0.9% 100 mL IVPB (Mini-Bag Plus) 2 g Intravenous Once Padmaja, Mary Anne E, DO heparin (porcine) injection 5,000 Units 5,000 Units Subcutaneous Once Padmaja, Mary Anne E, DO sodium chloride 0.9 % flush 10 mL 10 mL Intravenous q12h Padmaja, Mary Anne E, DO And sodium chloride 0.9 % flush 10 mL 10 mL Intravenous PRN Arik Giangin E, DO Review of Systems 14pt ROS reviewed and negative except for that included in HPI Physical Exam Vitals and nursing note reviewed. Constitutional: General: He is not in acute distress. Appearance: He is ill-appearing (chronic). HENT: Head: Normocephalic and atraumatic. Nose: Nose normal. Comments: Nasal ventilator mask Mouth/Throat: Mouth: Mucous membranes are moist. Eyes: Extraocular Movements: Extraocular movements intact. Pupils: Pupils are equal, round, and reactive to light. Cardiovascular: Rate and Rhythm: Normal rate. Pulmonary: Comments: No increased work of breathing, ventilatory support Abdominal: Palpations: Abdomen is soft. Comments: Mildly distended, G tube in LUQ spins easily Nontender Musculoskeletal: Comments: Contractures noted to upper and lower extremities Skin: General: Skin is warm. Capillary Refill: Capillary refill takes less than 2 seconds. Neurological: Mental Status: He is alert and oriented to person, place, and time. Psychiatric: Mood and Affect: Mood normal. Behavior: Behavior normal. Last Recorded Vitals There were no vitals taken for this visit. Relevant Results N/A Assessment/Plan Dilshad Junior is a 27yo M with Duchenne's muscular dystrophy, with subsequent chronic constipation and overflow incontinence who presents today for colostomy creation. Consent signed at bedside. To OR for colostomy creation, laparoscopic vs. open. Mary Anne Giang DO General Surgery PGY-5 [phone] Cosigned by Won Santos MD at 05/14/2023 12:19 PM EDT Associated attestation - Won Santos MD - 05/14/2023 12:19 PM EDT I saw and evaluated the patient with the resident/fellow. I discussed the case with the resident/fellow and agree with the findings and plan as documented. documented in this encounter Plan of Treatment Not on file documented as of this encounter Procedures Procedure Name Priority Date/Time Associated Diagnosis Comments OXYGEN THERAPY Routine 05/16/2023 8:00 AM EDT VENTILATOR - ADULT Routine 05/16/2023 8: 00 AM EDT CBC W/O DIFFERENTIAL STAT 05/16/2023 4:44 AM EDT BASIC METABOLIC PANEL, PLASMA STAT 05/16/2023 4:44 AM EDT OXYGEN THERAPY Routine 05/15/2023 8:00 PM EDT VENTILATOR - ADULT Routine 05/15/2023 8: 00 PM EDT OXYGEN THERAPY Routine 05/15/2023 8:00 AM EDT VENTILATOR - ADULT Routine 05/15/2023 8: 00 AM EDT XR CHEST 1 VIEW Routine 05/15/2023 2:04 AM EDT OXYGEN THERAPY Routine 05/14/2023 8:00 PM EDT VENTILATOR - ADULT Routine 05/14/2023 8: 00 PM EDT XR CHEST 1 VIEW STAT 05/14/2023 5:45 PM EDT VENTILATOR - ADULT Routine 05/14/2023 4: 18 PM EDT VENTILATOR - ADULT Routine 05/14/2023 4: 18 PM EDT VENTILATOR - ADULT Routine 05/14/2023 4: 18 PM EDT OXYGEN THERAPY Routine 05/14/2023 4:00 PM EDT OXYGEN THERAPY Routine 05/14/2023 4:00 PM EDT OXYGEN THERAPY Routine 05/14/2023 4:00 PM EDT OR COLOSTOMY 05/14/2023 1:30 PM EDT Chronic idiopathic constipation Special Needs Skytron Bed, SSI Colon Bundle documented in this encounter Results * (ABNORMAL) Basic metabolic panel (05/16/2023 4:44 AM EDT) Glucose, Plasma 125(H) 74 - 99 mg/dL 05/16/2023 5:21 AM EDT [facility] BUN, Plasma 19 7 - 21 mg/dL 05/16/2023 5:21 AM EDT [facility] Creatinine, Plasma <0.11(L) 0.80 - 1.30 mg/dL 05/16/2023 5:21 AM EDT [facility] BUN/Creatinine Ratio 05/16/2023 5:21 AM EDT [facility] Comment:Unable to calculate, at least one value is above or below the detection limit. Sodium, Plasma 138 136 - 145 mmol/L 05/16/2023 5:21 AM EDT [facility] Potassium, Plasma 4.1 3.7 - 4.8 mmol/L 05/16/2023 5:21 AM EDT [facility] Chloride, Plasma 104 97 - 107 mmol/L 05/16/2023 5:21 AM EDT [facility] CO2, Plasma 26 22 - 29 mmol/L 05/16/2023 5:21 AM EDT [facility] Anion Gap 8 6 - 16 mmol/L 05/16/2023 5:21 AM EDT [facility] Total Calcium, Plasma 8.9 8.9 - 10.2 mg/dL 05/16/2023 5:21 AM EDT [facility] eGFRcr 05/16/2023 5:21 AM EDT [facility] Comment:Unable to calculate, at least one value is above or below the detection limit. Blood Venous blood specimen / Unknown Venipuncture / Unknown 05/16/2023 4:44 AM EDT 05/16/2023 4:53 AM EDT us Won Santos MD LAB BLOOD ORDERABLES Final Res ult [facility] [address] [place] [address] * (ABNORMAL) CBC W/O Differential (05/16/2023 4:44 AM EDT) WBC Count 7.90 3.70 - 10.30 10*3/uL LAB HEMATOLOGY METHOD 05/16/2023 5:05 AM EDT [facility] RBC Count 3.36(L) 4.60 - 6.10 10*6/uL LAB HEMATOLOGY METHOD 05/16/2023 5:05 AM EDT [facility] HGB 10.3(L) 13.7 - 17.5 g/dL LAB HEMATOLOGY METHOD 05/16/2023 5:05 AM EDT [facility] HCT 31.9(L) 40.0 - 51.0 % LAB HEMATOLOGY METHOD 05/16/2023 5:05 AM EDT [facility] Platelet Count 246 155 - 369 10*3/uL LAB HEMATOLOGY METHOD 05/16/2023 5:05 AM EDT [facility] MCV 95 79 - 98 fL LAB HEMATOLOGY METHOD 05/16/2023 5:05 AM EDT [facility] MCH 30.7 26.0 - 32.0 pg LAB HEMATOLOGY METHOD 05/16/2023 5:05 AM EDT [facility] MCHC 32.3 30.7 - 35.5 g/dL LAB HEMATOLOGY METHOD 05/16/2023 5:05 AM EDT [facility] RDW 12.8 11.5 - 14.5 % LAB HEMATOLOGY METHOD 05/16/2023 5:05 AM EDT [facility] MPV 10.2 8.8 - 12.5 fL LAB HEMATOLOGY METHOD 05/16/2023 5:05 AM EDT [facility] nRBC 0.0 <=0.0 per 100 WBCs LAB HEMATOLOGY METHOD 05/16/2023 5:05 AM EDT [facility] Blood Venous blood specimen / Unknown Venipuncture / Unknown 05/16/2023 4:44 AM EDT 05/16/2023 4:53 AM EDT us Won Santos MD LAB BLOOD ORDERABLES Final Res ult [facility] [address] [place] [id number] * XR Chest 1 View (05/15/2023 2:04 AM EDT) Anatomical Region Laterality Modality Chest Digital Radiogra phy Impressions 05/15/2023 9:56 AM EDT Right IJ line terminates in mid SVC. No pneumothorax. CRITICAL RESULT: ?? No. COMMUNICATION: Per this written report. By electronically signing this report, I, the attending physician, attest that I have personally reviewed the images/data for the above examination(s) and agree with the final edited report. Drafted by Giovanna Richards DO on 05/15/2023 9:18 AM Final report signed by Azucena Copeland MD on 05/15/2023 9:56 AM Narrative 05/15/2023 9:56 AM EDT CLINICAL INDICATION: f/u R IJ displacement TECHNIQUE: XR CHEST 1 VIEW COMPARISON: May 14, 2023 chest radiograph FINDINGS: Right IJ line terminates within mid SVC. Cardiac silhouette and mediastinal contours stable. No pneumothorax. No pleural effusions. No new consolidation or edema. Procedure Note Azucena Copeland MD - 05/15/2023 CLINICAL INDICATION: f/u R IJ displacement TECHNIQUE: XR CHEST 1 VIEW COMPARISON: May 14, 2023 chest radiograph FINDINGS: Right IJ line terminates within mid SVC. Cardiac silhouette andmediastinal contours stable. No pneumothorax. No pleural effusions. No newconsolidation or edema. IMPRESSION: Right IJ line terminates in mid SVC. No pneumothorax. CRITICAL RESULT: No. COMMUNICATION: Per this written report. By electronically signing this report, I, the attending physician, sushil I have personally reviewed the images/data for the aboveexamination(s) and agree with the final edited report. Drafted by Giovanna Richards DO on 05/15/2023 9:18 AM Final report signed by Azucena Copeland MD on 05/15/2023 9:56 AM Won Santos MD IMG XR PROCEDURES Final Result * XR Chest 1 View (05/14/2023 5:45 PM EDT) Anatomical Region Laterality Modality Chest Digital Radiogra phy Impressions 05/14/2023 5:47 PM EDT Right IJ CVC with tip in the SVC. No pneumothorax. CRITICAL RESULT: ?? No. COMMUNICATION: Per this written report. Drafted by Elif Choi MD on 05/14/2023 5:46 PM Final report signed by Elif Choi MD on 05/14/2023 5:47 PM Narrative 05/14/2023 5:47 PM EDT CLINICAL INDICATION: Evaluation for placement of CVL TECHNIQUE: XR CHEST 1 VIEW COMPARISON: None. FINDINGS: Right internal jugular central venous catheter with tip in the SVC. Partially imaged thoracolumbar stabilization hardware. Lungs are clear. No consolidation. No pleural effusion. No pneumothorax. Cardiac silhouette is within normal limits. Procedure Note Elif Choi MD - 05/14/2023 CLINICAL INDICATION: Evaluation for placement of CVL TECHNIQUE: XR CHEST 1 VIEW COMPARISON: None. FINDINGS: Right internal jugular central venous catheter with tip in the SVC.Partially imaged thoracolumbar stabilization hardware. Lungs are clear. Noconsolidation. No pleural effusion. No pneumothorax. Cardiac silhouette iswithin normal limits. IMPRESSION: Right IJ CVC with tip in the SVC. No pneumothorax. CRITICAL RESULT: No. COMMUNICATION: Per this written report. Drafted by Elif Choi MD on 05/14/2023 5:46 PM Final report signed by Elif Choi MD on 05/14/2023 5:47 PM Won Santos MD IMG XR PROCEDURES Final Result documented in this encounter Visit Diagnoses Diagnosis Chronic idiopathic constipation- Primary Unspecified constipation Muscular dystrophy, Duchenne (CMS/HCC) Chronic idiopathic constipation Unspecified constipation Muscular dystrophy, Duchenne (CMS/HCC) documented in this encounter Admitting Diagnoses Diagnosis Chronic idiopathic constipation Unspecified constipation Muscular dystrophy, Duchenne (CMS/HCC) documented in this encounter Administered Medications Inactive Administered Medications - up to 3 most recent administrations Medication Order MAR Action Action Date Dose Rate Site acetaminophen (Ofirmev) injection 650 mg 650 mg, Intravenous, Every 6 hours, 4 doses, First dose on Fri05/14/23 at 1630, Last dose on Fri05/15/23 at 1300, Routine New Bag 05/15/2023 12:35 PM EDT 650 mg New Bag 05/15/2023 6:05 AM EDT 650 mg New Bag 05/15/2023 12:31 AM EDT 650 mg acetaminophen (Tylenol) tablet 650 mg 650 mg, Oral, Every 6 hours, First dose on [place] 05/15/23 at 2200, Until Discontinued, Routine, Recovery(Phase II-Outpatient)/On Unit(Inpatient) Given 05/17/2023 9:08 AM EDT 650 mg Given 05/17/2023 5:12 AM EDT 650 mg Given 05/16/2023 9:22 PM EDT 650 mg bisoprolol (Zebeta) tablet 5 mg 5 mg, Per G Tube, Daily, First dose on Fri05/15/23 at 0900, Until Discontinued, Routine, Recovery(Phase II-Outpatient)/On Unit(Inpatient) Given 05/17/2023 9:37 AM EDT 5 mg Given 05/15/2023 9:09 AM EDT 5 mg chlorhexidine (Peridex) 0.12 % solution 15 mL 15 mL, Mouth/Throat, 4 times daily, First dose on Fri05/14/23 at 1800, Until Discontinued, Routine, Recovery(Phase II-Outpatient)/On Unit(Inpatient) Given 05/17/2023 9:03 AM EDT 15 mL Given 05/16/2023 9:22 PM EDT 15 mL Given 05/16/2023 5:52 PM EDT 15 mL escitalopram (Lexapro) tablet 10 mg 10 mg, Per G Tube, Daily, First dose on Fri05/15/23 at 0900, Until Discontinued, Routine, Recovery(Phase II-Outpatient)/On Unit(Inpatient) Given 05/17/2023 9:08 AM EDT 10 mg Given 05/16/2023 9:20 AM EDT 10 mg Given 05/15/2023 8:55 AM EDT 10 mg fentaNYL (Sublimaze) injection 50 mcg 50 mcg, Intravenous, Once, 1 dose, On Fri05/14/23 at 1700, Routine Given 05/14/2023 4:50 PM EDT 50 mcg furosemide (Lasix) tablet 20 mg 20 mg, Per G Tube, Every morning, First dose on Fri05/15/23 at 0600, Until Discontinued, Routine, Recovery(Phase II-Outpatient)/On Unit(Inpatient) Given 05/15/2023 5:37 AM EDT 20 mg gabapentin (Neurontin) 250 MG/5ML solution 625 mg 625 mg, Per G Tube, 3 times daily, First dose on Fri05/14/23 at 1630, Until Discontinued, Routine, Recovery(Phase II-Outpatient)/On Unit(Inpatient) Given 05/17/2023 9:08 AM EDT 625 mg Given 05/16/2023 9:22 PM EDT 625 mg Given 05/16/2023 4:36 PM EDT 625 mg heparin (porcine) injection 5,000 Units 5,000 Units, Subcutaneous, Once, 1 dose, On Fri05/14/23 at 1215, Routine, Holding - Preprocedure Given 05/14/2023 1:15 PM EDT 5,000 Units Right Lower Abdomen lidocaine (Lidoderm) 5 % patch 1 patch 1 patch, Apply externally, Daily, First dose on Fri05/14/23 at 1630, Until Discontinued, Administer over 12 Hours, Routine Medication Applied 05/15/2023 8:55 AM EDT 1 patch Left Lower Abdomen LORazepam (Ativan) tablet 0.5 mg 0.5 mg, Per G Tube, Nightly, First dose on Fri05/14/23 at 2100, Until Discontinued, Routine, Recovery(Phase II-Outpatient)/On Unit(Inpatient) Given 05/16/2023 9:22 PM EDT 0.5 mg Given 05/15/2023 9:33 PM EDT 0.5 mg Given 05/14/2023 10:35 PM EDT 0.5 mg methocarbamol (Robaxin) tablet 500 mg 500 mg, Oral, Every 6 hours scheduled, First dose on Fri05/14/23 at 1800, Until Discontinued, Routine, Recovery(Phase II-Outpatient)/On Unit(Inpatient) Given 05/17/2023 5:13 AM EDT 500 mg Given 05/16/2023 11:19 PM EDT 500 mg Given 05/16/2023 5:52 PM EDT 500 mg oxyCODONE (Roxicodone) immediate release tablet 5 mg 5 mg, Oral, Every 4 hours PRN, Starting on Fri05/14/23 at 1559, Until 05/17/23 at 1809, Routine, Recovery(Phase II-Outpatient)/On Unit(Inpatient), moderate pain, severe pain Given 05/15/2023 9:35 PM EDT 5 mg Given 05/14/2023 10:35 PM EDT 5 mg Povidone-Iodine 5 % swab solution 1 Swab Nasal, Daily, 5 doses, First dose on Fri05/15/23 at 0900, Last dose on Fri05/19/23 at 0900, Routine Given 05/17/2023 9:09 AM EDT 1 Swab Given 05/16/2023 9:18 AM EDT 1 Swab Given 05/15/2023 8:57 AM EDT 1 Swab sacubitril-valsartan (Entresto) 49-51 MG per tablet 1 tablet 1 tablet, Per G Tube, 2 times daily, First dose on Fri05/14/23 at 2100, Until Discontinued, Routine, Recovery(Phase II-Outpatient)/On Unit(Inpatient) Given 05/17/2023 9:36 AM EDT 1 tablet Given 05/16/2023 9:36 PM EDT 1 tablet Given 05/15/2023 9:33 PM EDT 1 tablet sodium phosphate (Fleet) enema 133 mL 133 mL (1 enema), Rectal, Once as needed, 1 dose, Starting on 05/17/23 at 0945, Until 05/17/23 at 1000, Routine, constipation Given 05/17/2023 10:00 AM E DT 133 mL documented in this encounter Active and Recently Administered Medications Times are shown in EDT. Scheduled Medication Order 05/15/2023 05/16/2023 05/17/2023 acetaminophen (Ofirmev) injection 650 mg (COMPLETED) 650 mg, Intravenous, Every 6 hours, 4 doses, First dose on Fri05/14/23 at 1630, Last dose on Fri05/15/23 at 1300, Routine 0031 (New Bag - Provider: Luis Nails)0605 (New Bag - Provider: Luis Nails)1235 (New Bag - Provider: Geneva Armas) acetaminophen (Tylenol) tablet 650 mg 650 mg, Oral, Every 6 hours, First dose on Fri05/15/23 at 2200, Until Discontinued, Routine, Recovery(Phase II-Outpatient)/On Unit(Inpatient) 2133 (Given - Provider: Radha Suarez) 0330 (Given - Provider: Radha Suarez)0918 (Given - Provider: Geneva Armas)1636 (Given - Provider: Geneva Armas)2122 (Given - Provider: Radha Suarez) 0512 (Given - Provider: Radha Suarez)0908 (Given - Provider: Geneva Armas)1600 (Canceled Entry - Provider: Automatic Discharge Provider - Comment: Automatically canceled at discontinue of medication order) bisoprolol (Zebeta) tablet 5 mg 5 mg, Per G Tube, Daily, First dose on Fri05/15/23 at 0900, Until Discontinued, Routine, Recovery(Phase II-Outpatient)/On Unit(Inpatient) 0909 (Given - Provider: Geneva Armas) 1017 (Not Given - Provider: Geneva Armas - Reason: Hold for condition: must add comment - Comment: low BP) 0937 (Given - Provider: Geneva Armas) chlorhexidine (Peridex) 0.12 % solution 15 mL 15 mL, Mouth/Throat, 4 times daily, First dose on Fri05/14/23 at 1800, Until Discontinued, Routine, Recovery(Phase II-Outpatient)/On Unit(Inpatient) 0856 (Given - Provider: Geneva Armas)1500 (Given - Provider: Geneva Armas)1827 (Given - Provider: Geneva Armas)2133 (Given - Provider: Radha Suarez) 0918 (Given - Provider: Geneva Armas)1406 (Given - Provider: Geneva Armas)1752 (Given - Provider: Geneva Armas)2122 (Given - Provider: Radha Suarez) 0903 (Given - Provider: Geneva Armas)1400 (Canceled Entry - Provider: Automatic Discharge Provider - Comment: Automatically canceled at discontinue of medication order)1800 (Canceled Entry - Provider: Automatic Discharge Provider - Comment: Automatically canceled at discontinue of medication order) escitalopram (Lexapro) tablet 10 mg 10 mg, Per G Tube, Daily, First dose on Fri05/15/23 at 0900, Until Discontinued, Routine, Recovery(Phase II-Outpatient)/On Unit(Inpatient) 0855 (Given - Provider: Geneva Armas) 0920 (Given - Provider: Geneva Armas) 0908 (Given - Provider: Geneva Armas) furosemide (Lasix) tablet 20 mg 20 mg, Per G Tube, Every morning, First dose on Fri05/15/23 at 0600, Until Discontinued, Routine, Recovery(Phase II-Outpatient)/On Unit(Inpatient) 0537 (Given - Provider: Luis Nails) 0550 (Not Given - Provider: Radha Suarez - Reason: Hold for condition: must add comment - Comment: BP at 80/48) 0513 (Not Given - Provider: Radha Suarez - Reason: Hold for condition: must add comment - Comment: bp at 83/53 (62) MD aware) gabapentin (Neurontin) 250 MG/5ML solution 625 mg 625 mg, Per G Tube, 3 times daily, First dose on Fri05/14/23 at 1630, Until Discontinued, Routine, Recovery(Phase II-Outpatient)/On Unit(Inpatient) 0856 (Given - Provider: Geneva Armas)1554 (Given - Provider: Geneva Armas)2133 (Given - Provider: Radha Suarez) 0917 (Given - Provider: Geneva Armas)1636 (Given - Provider: Geneva Armas)212 (Given - Provider: Radha Suarez) 0908 (Given - Provider: Geneva Armas)1600 (Canceled Entry - Provider: Automatic Discharge Provider - Comment: Automatically canceled at discontinue of medication order) lidocaine (Lidoderm) 5 % patch 1 patch 1 patch, Apply externally, Daily, First dose on Fri05/14/23 at 1630, Until Discontinued, Administer over 12 Hours, Routine 0855 (Medication Applied - Provider: Geneva Armas)2131 (Medication Removed - Provider: Radha Suarez - Comment: not present on patient) 0920 (Not Given - Provider: Geneva Armas - Reason: Patient/family refused) 0909 (Not Given - Provider: Geneva Armas - Reason: Patient/family refused) LORazepam (Ativan) tablet 0.5 mg 0.5 mg, Per G Tube, Nightly, First dose on Fri05/14/23 at 2100, Until Discontinued, Routine, Recovery(Phase II-Outpatient)/On Unit(Inpatient) 213 (Given - Provider: Radha Suarez) 2121 (Given - Provider: Radha Suarez) methocarbamol (Robaxin) tablet 500 mg 500 mg, Oral, Every 6 hours scheduled, First dose on Fri05/14/23 at 1800, Until Discontinued, Routine, Recovery(Phase II-Outpatient)/On Unit(Inpatient) 0049 (Not Given - Provider: Luis Nails - Reason: Patient/family refused)0537 (Given - Provider: Luis Nails)1235 (Given - Provider: Geneva Armas)1827 (Given - Provider: Geneva Armas)2351 (Given - Provider: Radha Suarez) 0549 (Given - Provider: Radha Suarez)1234 (Given - Provider: Geneva Armas)1752 (Given - Provider: Geneva Armas)2319 (Given - Provider: Radha Suarez) 0513 (Given - Provider: Radha Suarez)1248 (Not Given - Provider: Geneva Armas - Reason: Patient/family refused)1800 (Canceled Entry - Provider: Automatic Discharge Provider - Comment: Automatically canceled at discontinue of medication order) Povidone-Iodine 5 % swab solution 1 Swab Nasal, Daily, 5 doses, First dose on Fri05/15/23 at 0900, Last dose on Fri05/19/23 at 0900, Routine 0857 (Given - Provider: Geneva Armas) 0918 (Given - Provider: Geneva Armas) 0909 (Given - Provider: Geneva Armas) sacubitril-valsartan (Entresto) 49-51 MG per tablet 1 tablet 1 tablet, Per G Tube, 2 times daily, First dose on Fri05/14/23 at 2100, Until Discontinued, Routine, Recovery(Phase II-Outpatient)/On Unit(Inpatient) 0909 (Given - Provider: Geneva Armas)2133 (Given - Provider: Radha Suarez) 1018 (Not Given - Provider: Geneva Armas - Reason: Hold for condition: must add comment - Comment: LOW BP)2136 (Given - Provider: Radha Suarez) 0936 (Given - Provider: Geneva Armas) PRN Medication Order 05/15/2023 05/16/2023 05/17/2023 oxyCODONE (Roxicodone) immediate release tablet 5 mg 5 mg, Oral, Every 4 hours PRN, Starting on Fri05/14/23 at 1559, Until 05/17/23 at 1809, Routine, Recovery(Phase II-Outpatient)/On Unit(Inpatient), moderate pain, severe pain 213 (Given - Provider: Radha Suarez) sodium phosphate (Fleet) enema 133 mL (COMPLETED) 133 mL (1 enema), Rectal, Once as needed, 1 dose, Starting on 05/17/23 at 0945, Until 05/17/23 at 1000, Routine, constipation 1000 (Given - Provid er: Geneva Armas) documented in this encounter Additional Health Concerns Assessment Noted Time A fall risk assessment has been complete d for the patient 03/25/2023 2:12 PM EDT documented as of this encounter Care Teams [employer] Fabricator Assembler Relationship Specialty Start Date End Date Rhys Butts MD [address] [place] [address] PCP - General 03/02/21 documented as of this encounter
--- OUTSIDE RECORDS SUMMARY | 2024-09-29 14:25 | XMS_ITS | Encounter Summary ---
Author Organization Healthcare Address [address] [place] [address] Care Team Providers Care Photo Engraver Name Role Phone Rhys Butts MD Primary Care Provider [phone] Reason for Visit * Reason Comments Follow-up Encounter Details Date Type Department Care Team (Late st Contact Info) Description 03/25/2023 3:30 PM EDT Office Visit [facility] General Surgery [address] [place] [address] Won Santos MD [address] [place] [address] Chronic constipation (Primary Dx) Social History Tobacco Use [...] Sign Reading Time Taken Comments Blood Pressure 96/65 03/25/2023 2:12 PM EDT Pulse 63 03/25/2023 2:12 PM EDT Temperature 36.5 ??C (97.7 ??F) 03/25/2023 2:12 PM ED T Respiratory Rate 16 03/25/2023 2:12 PM EDT Oxygen Saturation - - Inhaled Oxygen Concentration - - Weight 40.8 kg (90 lb) 03/25/2023 2:12 PM EDT Height 157.5 cm (5' 2 ) 03/25/2023 2:12 PM EDT Body Mass Index 16.46 03/25/2023 2:12 PM EDT documented in this encounter Miscellaneous Notes * Progress Notes - Bernie Carson - 03/25/2023 3:30 PM EDT Chief Complaint: Chief Complaint Patient presents with Follow-up HPI: Mr. Austin Prieto is a 27 y.o. male PMH duchenne's muscular dystrophy, chronic respiratory failurewith ventilator dependence, heart failure with last EF 49%, s/p G tube placement. Is an establishedpatient with GI who is referred to our clinic by Dane chilel for evaluation of chronic constipation. Patient has tried multiple medical treatments for constipation including Linzess, Reglan, Colace, Senna, ect. These treatments offer no improvement, he typically has worsening of bloating, gas pain on these medications. Patient reports still having to manually disimpact his bowels with continuation of his overflow incontinence. Denies hematochezia, fever, or chills. No change in health since his previous visit with Dr. Santos on 02/25/23. Primary Care Physician: Rhys Butts MD Past Medical History: Diagnosis Date Failure to [...] GASTROSTOMY TUBE PLACEMENT N/A Feeding Tube from [facility] SPINAL FUSION TYMPANOSTOMY TUBE PLACEMENT N/A Ear Pressure Equalization Tube, Insertion, Bilaterally from [facility] Current Outpatient Medications Medication Instructions baclofen (LIORESAL) 10 mg, Oral, 3 times daily bisoprolol (ZEBETA) 5 mg, Oral, Daily erythromycin ethylsuccinate (EES) 200 MG/5ML suspension No dose, route, or frequency recorded. escitalopram (LEXAPRO) 10 mg, Oral, Daily furosemide (LASIX) 20 mg, Oral, Daily gabapentin (Neurontin) 250 MG/5ML solution Take 12.5mL 3 times Daily HYDROcodone-acetaminophen (Artemas) 5-325 MG tablet As needed hydrocortisone 2.5 % ointment 1 application., Topical, As needed LORazepam (ATIVAN) 0.5 mg, Oral, Every 6 hours PRN metoclopramide (REGLAN) 10 mg, Oral, Daily before breakfast polyethylene glycol (MIRALAX) 17 g, Per G Tube, 2 times daily, Dissolve packet in 8 ounces of waterand infuse through PEG twice daily sacubitril-valsartan (Entresto) 49-51 MG tablet Oral, 2 times daily, 49-51mg No Known Allergies Review of Systems Constitutional: Negative for chills, fatigue and fever. Gastrointestinal: Positive for abdominal distention, constipation and diarrhea. Negative for anal bleeding, blood in stool, nausea and rectal pain. Visit Vitals BP 96/65 (BP Location: Right arm, Patient Position: Sitting) Pulse 63 Temp 36.5 ??C (97.7 ??F) (Temporal) Ht 1.575 m (5' 2 ) Wt 40.8 kg (90 lb) BMI 16.46 kg/m?? Physical Exam Constitutional: Appearance: Normal appearance. HENT: Head: Normocephalic and atraumatic. Nose: Nose normal. Mouth/Throat: Mouth: Mucous membranes are dry. Pharynx: Oropharynx is clear. Eyes: Extraocular Movements: Extraocular movements intact. Conjunctiva/sclera: Conjunctivae normal. Pulmonary: Effort: Pulmonary effort is normal. Abdominal: General: There is distension. Palpations: Abdomen is soft. There is no mass. Tenderness: There is no guarding. Skin: General: Skin is warm and dry. Neurological: Mental Status: He is alert. Mental status is at baseline. Motor: Weakness present. Coordination: Coordination abnormal. Psychiatric: Mood and Affect: Mood normal. Behavior: Behavior normal. Thought Content: Thought content normal. Assessment & Plan In summary, Mr. Prieto is a 27 y.o. male with PMH duchenne's muscular dystrophy, chronic respiratory failure with ventilator dependence, heart failure with last EF 49%, s/p G tube placement who is presenting for consultation from GI for chronic constipation requiring manual disimpaction likely secondary to overflow incontinence. Multiple modifications of bowel regimen have been tried with no long-lasting positive affect. Previously discussed the risks and benefits of colostomy creation weighed with quality of life. Colostomy creation considered yet high perioperative risk has been discussed including chronic respiratory failure and heart failure. Patient underwent evaluation by anesthesia today (03/25), staffed with Dr. Aviles - plan to follow-up with pulmonology for medical clearance and anesthesia will contact the patient's rubber liner for medical clearance. We will schedule a follow-up pending pulmonology and cardiology clearance. Bernie Carson MS4 Cosigned by Won Santos MD at 04/09/2023 6:50 PM EDT Associated attestation - Won Santos MD - 04/09/2023 6:50 PM EDT I saw and evaluated the patient with the medical/POURED WALL FOREMAN/PA student. I discussed the case with the medical/POURED WALL FOREMAN/PA student and agree with the findings and plan as documented. I personally performed the Examand Medical Decision Making. Mr. Prieto is a 27-year-old male with significant medical comorbidities that presents with chronic constipation and worsening abdominal pain after lack of affect from an aggressive bowel regimen that includes both Linzess and Colace. Has Duchenne's muscular dystrophy as well as chronic respiratory failure requiring ventilator. Heart failure with preserved ejection fraction. Existing G-tube is present. Abdomen is slightly distended. Colostomy creation has been discussed. Understood high risk. Preoperative anesthesia will need to be consulted for preoperative planning. PLAN FOLLOWS: Schedule colostomy creation. Needs preoperative anesthesia evaluation prior to scheduling. documented in this encounter Plan of Treatment Not on file documented as of this encounter Visit Diagnoses Diagnosis Chronic constipation- Primary Unspecified constipation documented in this encounter Additional Health Concerns Assessment Noted Time A fall risk assessment has been complete d for the patient 03/25/2023 2:12 PM EDT documented as of this encounter Care Teams Photo Engraver Relationship Specialty Start Date End Date Rhys Butts MD [address] [place] [address] PCP - General 03/02/21 documented as of this encounter
--- OUTSIDE RECORDS SUMMARY | 2024-09-29 14:25 | XMS_ITS | Encounter Summary ---
Author Organization Healthcare Address [address] [id number] Care Team Providers Care Production Administrative Assistant Name Role Phone Rhys Butts MD Primary Care Provider [phone] Reason for Visit * Reason Onset Date Comments HCN Clinical Concern/Question 04/23/2023 Encounter Details Date Type Department Care Team (Late st Contact Info) Description 04/23/2023 Telephone [facility] General Surgery [address] [place] [address] Won Santos MD [address] [facility] [address] [place] [address] HCN Clinical Concern/Question Social History Tobacco Use Types Packs/Day Years [...] encounter Miscellaneous Notes * Telephone Encounter - Kimberly Null RN - 04/28/2023 3:31 PM EDT Production Director notified. Will contact patient's mother to schedule. * Telephone Encounter - Destini Zaldivar - 04/23/2023 8:37 AM EDT Clinical Concern/Question Reason for Call: mom called stating that orders for colostomy are not in so surgery scheduling cannot take place yet. She is hoping this can get ordered so they can start sx scheduling process Best contact number: Other: [phone] Optimal time of day to reach caller: ANYTIME Additional comments/information from caller: None Note: Please do not reply to this message. Follow-up communication and further actions as a result of this message need to be communicated with the patient directly, if the patient is not active onMyChart. If the patient is active on MyChart, they will receive notification of the communication/outcome via [employer]. documented in this encounter Plan of Treatment Not on file documented as of this encounter Visit Diagnoses Not on filedocumented in this encounter Additional Health Concerns Assessment Noted Time A fall risk assessment has been complete d for the patient 03/25/2023 2:12 PM EDT documented as of this encounter Care Teams Production Administrative Assistant Relationship Specialty Start Date End Date Rhys Butts MD [address] [place] [address] PCP - General 03/02/21 documented as of this encounter
--- OUTSIDE RECORDS SUMMARY | 2024-09-29 14:25 | XMS_ITS | Encounter Summary ---
Author Organization Healthcare Address [address] [place] [address] Care Team Providers Care Axle Inspector Name Role Phone Rhys Butts MD Primary Care Provider [phone] Encounter Details Date Type Department Care Team (Latest Contact Info) Description 05/07/2023 Travel Social History Tobacco Use Types Packs/Day [...] documented as of this encounter Care Teams Axle Inspector Relationship Specialty Start Date End Date Rhys Butts MD [address] [place] [address] PCP - General 03/02/21 documented as of this encounter
--- OUTSIDE RECORDS SUMMARY | 2024-09-29 14:25 | XMS_ITS | Encounter Summary ---
Author Organization Healthcare Address [address] [id number] Care Team Providers Care Anesthetic Assistant Name Role Phone hRys Butts MD Primary Care Provider [phone] Reason for Visit * Auth/Cert (Routine) Specialty Diagnoses / Procedures Referred By Contac t Referred To Contact Diagnoses Chronic idiopathic constipation Chronic idiopathic constipation [K59.04] Procedures [place] COLOSTOMY CREATION, COLOSTOMY Won Santos MD [address] [facility] [address] [place] [address] Phone: tel: fax: [facility] [address] [place] [address] Phone: tel: Referral ID Status Reason Start Date Expiration Date Visits Re quested Visits Authorized [id number] 1 1 Encounter Details Date Type Department Care Team (Late st Contact Info) Description 05/14/2023 1:47 PM EDT Anesthesia Event [facility] [address] [place] [address] Larry Bowden MD [address] [place] [address] Aurelio Alonzo CRNA [address] [place] [address] Anesthesia Record Procedure Summary Procedure Name Responsible Anesthesiologist Anesthesia Start Time Anesthesia Stop Time CREATION, COLOSTOMY (Abdomen) Larry Bowden MD 05/14/23 1347 05/14/23 1626 Events Date Time Event Comment 05/14/2023 1150 1345 In Room 1347 An Start 1347 An Start Data 1419 An Induction The patient was reevaluated immediately before moderate or deep sedation use and before anesthesia induction. 1426 An Intubation 1428 Derek 1446 Anesthesia Ready 1508 Proc Start 1554 Proc Fin 1555 An Extubation 1600 an stop data 1604 Out of Room 1623 Handoff to Receiving I compl eted my handoff to the receiving clinician during which we: 1. Identified the patient 2. Identified the responsible provider 3. Reviewed the pertinent medical history 4. Discussed the surgical course 5. Reviewed intra-op anesthesia management and issues during anesthesia 6. Set expectations for post-procedure period 7. Allowed opportunity for questions and acknowledgement of understanding. 1626 An Stop Meds Name Total midazolam (Versed) injection 1 mg/mL 2 m g rocuronium (ZeMuron) injection 10 mg/mL 30 mg dexamethasone (Decadron) injection 4 mg/ mL 4 mg phenylephrine (Cisco-Synephrine) prefilled syringe 1 mg/10 mL 50 mcg ondansetron (Zofran) injection 2 mg/mL 4 mg sugammadex (Bridion) injection 100 mg/mL 200 mg propofol (Diprivan) infusion 10 mg/mL 27 5.68 mg remifentanil (Ultiva) injection 2 mg 0.5 3 mg propofol (Diprivan) injection 10 mg/mL 1 00 mg cefOXitin (Mefoxin) 2 g in sodium chlori de 0.9% 100 mL IVPB (Mini-Bag Plus) 2 g fentaNYL (Sublimaze) injection 50 mcg/mL 75 mcg lactated Ringer's infusion 500 mL * Agents Name O2 N2O Air Sevoflurane Isoflurane Desflurane Inspired Desflurane Inspired Isoflurane Inspired Sevoflurane N2O Inspired N2O * Blood No blood administrations on file. Lines, Drains, and Airways Type Details Placement Removal Gastrostomy/Enterosto my Yes; 05/14/23; Other (Comment) (BL); PEG-jejunostomy; LLQ 05/14/23 0000 by Wound 05/14/23; 1504; N; Y es; Incision; Abdomen; Lower 05/14/23 1504 by Fatou Dietrich Colostomy 05/14/23; 1536; No; 05/14/23; Yes; RLQ 05/14/23 1536 by Fatou Dietrich ETT Placement Date: 04/20 04/11; Placement Time: 1426 (created via procedure documentation); Mask Ventilation: 1; Technique: Video laryngoscopy; Type: ETT - single; Single Lumen Tube Size: 6.5 mm; Cuffed: Yes; Laryngoscope: (s3); Blade Size: 3; Location: Oral; Grade View: Grade IIb; Insertion Attempts: 1; Placement Verification: Auscultation, Capnometry; Airway Comments: Elective glidescope d/t limited mouth opening and limited rom of neck, was able to visualize posterior portion of chords with anterior pressure. There was very limited room in the mouth. Intubation was atraumatic. ; Placed by: BERTRAM; Removal Date: 05/14/23; Removal Time: 1555 05/14/23 1426 by Aurelio Alonzo CRNA 05/14/23 1555 by Aurelio Alonzo CRNA CVC Triple Lumen Placement Date: 04/20 04/11; Placement Time: 1453 (created via procedure documentation); Hand Hygiene: Yes; Site Prep: Chlorhexidine ; Site Prep Agent Dried: Yes; Sterile Barrier Used: Yes; Size: 7 Fr; Line Length(cm): 20; Orientation: Right; Location: Internal jugular; Placement Verification: Blood return; Removal Date: 05/14/23; Removal Time: 1455; Removal Reason: Site change 05/14/23 1453 by Larry Bowden MD 05/14/23 1455 by Cari Soto RN CVC Double Lumen Placement Date: 04/20 04/11; Placement Time: 145 (created via procedure documentation); Hand Hygiene: Yes; Site Prep: Chlorhexidine ; Site Prep Agent Dried: Yes; Sterile Barrier Used: Yes; Size: 5 Fr; Description: Initially double lumen peds cvc placed for venous access due to difficult peripheral access while pt awake. CVC was not sutured in due to not believing pt would require access for long. Induction there after, uneventful. While pt being moved CVC accidentally removed. Triple lumen then placed and sutured; Line Length(cm): 8; Orientation: Right; Location: Internal jugular; Placement Verification: Blood return; Removal Date: 05/17/23; Removal Time: 1000; Removal Reason: Discharge 05/14/23 1456 by Larry oBwden MD 05/17/23 1000 by Geneva Armas RN documented in this encounter Social History Tobacco Use Types Packs/Day Years [...] drink first t eder in the morning ([employer]) to steady your nerves or to get rid of a hangover? 0 05/14/2023 CAGE Questionnaire Score 0 023 Sex and Gender Information Value Date Recorded Sex Assigned at Not on file Legal Sex Male 7:07 PM EDT Gender Identity Not on file Sexual Orientation Not on file documented as of this encounter Miscellaneous Notes * Addendum Note - Izabela Sanchez DO - 05/14/2023 4:36 PM EDT Addendum created 05/14/23 1636 by Izabela Sanchez DO Order list changed, Pharmacy for encounter modified * Anesthesia Postprocedure Evaluation - Larry Bowden MD - 05/14/2023 4:10 PM EDT Patient: Austin Prieto Anesthesia Type: general Vitals Value Taken Time BP 127/88 05/14/23 1607 Temp 36.7 05/14/23 1610 Pulse 116 05/14/23 1609 Resp 16 05/14/23 1609 SpO2 100 % 05/14/23 1609 Vitals shown include unvalidated device data. Anesthesia Post Evaluation Patient location during evaluation: PACU Patient participation: complete - patient participated Level of consciousness: awake Pain management: adequate (pain score 0-3) Airway patency: natural airway Cardiovascular status: acceptable Respiratory status: CPAP and room air Hydration status: acceptable No notable events documented. Pt extubated directly to pt's VPAP and transported with monitors to PACU on VPAP. HDS in PACU * Anesthesia Procedure Notes - Aurelio Alonzo CRNA - 05/14/2023 3:13 PM EDTAssociated Order(s): Airway Airway Date/Time: 05/14/2023 2:26 PM Urgency: elective Airway not difficult General Information and Staff Patient location during procedure: OR OFFICE MESSENGER: Aurelio Alonzo CRNA Performed: OFFICE MESSENGER Indications and Patient Condition Indications for airway management: anesthesia Preoxygenated: yes Patient position: neutral neck position. Mask difficulty assessment: 1 - vent by mask Planned trial extubation Final Airway Details Final airway type: endotracheal airway Successful airway: ETT Cuffed: yes Successful intubation technique: video laryngoscopy Endotracheal tube insertion site: oral Blade: other (s3) Blade size: #3 ETT size (mm): 6.5 Cormack-Lehane Classification: grade IIb - view of arytenoids or posterior of glottis only Placement verified by: chest auscultation and capnometry Inital cuff pressure (cm H2O): 20 Measured from: lips ETT to lips (cm): 23 Number of attempts at approach: 1 Additional Comments Elective glidescope d/t limited mouth opening and limited rom of neck, was able to visualize posterior portion of chords with anterior pressure. There was very limited room in the mouth. Intubation was atraumatic. * Anesthesia Procedure Notes - Larry Bowden MD - 05/14/2023 2:54 PM EDT Associated Order(s): Central Venous Line Central Venous Line: A central venous line was placed in the OR for the following indication(s): central venous access. Sterility preparation included the following: provider hand hygiene performed prior to central venous catheter insertion, all 5 sterile barriers used (gloves, gown, cap, mask, large sterile drape) during central venous catheter insertion, antiseptic used during central venous catheter insertion andskin prep agent completely dried prior to procedure. The patient was placed in Trendelenburg position. Right internal jugular vein was prepped. The site was prepped with Chlorhexidine. A 5 Fr (size), 8 (length), introducer double lumen was placed. During the procedure, the following specific steps were taken: target vein identified, needle advanced into vein and blood aspirated and guidewire advanced into vein. Seldinger technique used Procedure performed using ultrasound guidance. Sterile gel and probe cover used in ultrasound-guided central venous catheter insertion. Intravenous verification was obtained by venous blood return. Post insertion care included: all ports aspirated, all ports flushed easily, guidewire removed intact, Biopatch applied, line sutured in place and dressing applied. During the procedure the patient experienced: patient tolerated procedure well with no complications. Additional notes: Initially double lumen peds cvc placed for venous access due to difficult peripheral access while pt awake. CVC was not sutured in due to not believing pt would require access for long. Induction there after, uneventful. While pt being moved CVC accidentally removed. Triple lumen then placed and sutured Staffing Performed: Anesthesiologist Anesthesiologist: Larry Bowden MD I personally performed the procedure * Anesthesia Procedure Notes - Larry Bowden MD - 05/14/2023 2:53 PM EDT Associated Order(s): Central Venous Line Central Venous Line: A central venous line was placed in the OR for the following indication(s): central venous access. Sterility preparation included the following: provider hand hygiene performed prior to central venous catheter insertion, all 5 sterile barriers used (gloves, gown, cap, mask, large sterile drape) during central venous catheter insertion, antiseptic used during central venous catheter insertion andskin prep agent completely dried prior to procedure. The patient was placed in Trendelenburg position. Right internal jugular vein was prepped. The site was prepped with Chlorhexidine. A 7 Fr (size), 20 (length), introducer triple lumen was placed. During the procedure, the following specific steps were taken: target vein identified, needle advanced into vein and blood aspirated and guidewire advanced into vein. Seldinger technique used Procedure performed using ultrasound guidance. Sterile gel and probe cover used in ultrasound-guided central venous catheter insertion. Intravenous verification was obtained by venous blood return and manometry. Post insertion care included: all ports aspirated, all ports flushed easily, guidewire removed intact, Biopatch applied, line sutured in place and dressing applied. During the procedure the patient experienced: patient tolerated procedure well with no complications. Staffing Performed: Anesthesiologist Anesthesiologist: Larry Bowden MD I personally performed the procedure * Anesthesia Preprocedure Evaluation - Larry Bowden MD - 05/14/2023 11:45 AM EDT Images from the original note were not included. Patient: Austin Prieto 27-year-old male with significant medical comorbidities that presents with chronic constipation and worsening abdominal pain after lack of affect from an aggressive bowel regimen that includes both Linzess and Colace. Has Duchenne's muscular dystrophy as well as chronic respiratory failure requiring ventilator. Heart failure with preserved ejection fraction. Existing G-tube is present. Abdomen is slightly distended. Colostomy creation has been discussed. Procedure Information Date/Time: 05/14/23 1300 Procedure: CREATION, COLOSTOMY - RT 90min Location: [facility] [place] OR Surgeons: Won Santos MD Relevant Problems Cardio (+) Cardiomyopathy as manifestation of underlying disease (CMS/HCC) (+) Other cardiomyopathies (CMS/HCC) (+) Right bundle-branch block GI (+) GERD (gastroesophageal reflux disease) (+) Gastroparesis Pulmonary (+) Ventilator dependence (CMS/HCC) Anesthesia Evaluation Past Medical History: Diagnosis Date ??? Failure to thrive (child) Failure to thrive (0-17) ??? Other disorders of lung Chronic pulmonary disease ??? Personal history of other diseases of the circulatory system History of cardiomyopathy ??? Personal history of other diseases of the digestive system History of gastritis ??? Personal history of other diseases of the nervous system and sense organs History of sciatica ??? Personal history of pneumonia (recurrent) History of pneumonia No current facility-administered medications on file prior to encounter. Current Outpatient Medications on File Prior to Encounter Medication Sig Dispense Refill ??? bisoprolol (Zebeta) 5 MG tablet 1 tablet (5 mg) by Per G Tube route 1 (one) time each day. ??? escitalopram (Lexapro) 10 MG tablet 1 tablet (10 mg) by Per G Tube route 1 (one) time each day. ??? furosemide (Lasix) 20 MG tablet 1 tablet (20 mg) by Per G Tube route 1 (one) time each day in the morning. ??? gabapentin (Neurontin) 250 MG/5ML solution 12.5 mL (625 mg) by Per G Tube route 3 (three) timesa day. ??? LORazepam (Ativan) 0.5 MG tablet 1 tablet (0.5 mg) by Per G Tube route every night. ??? sacubitril-valsartan (Entresto) 49-51 MG tablet 1 tablet by Per G Tube route 2 (two) times a day. ??? baclofen (Lioresal) 10 MG tablet Take 1 tablet (10 mg) by mouth 3 (three) times a day. ??? HYDROcodone-acetaminophen ([place]) 5-325 MG tablet 1 tablet (5 mg of hydrocodone) by Per G Tube route if needed for moderate pain or severe pain. ??? metoclopramide (Reglan) 5 MG/5ML solution Take 10 mL (10 mg total) by mouth 1 (one) time each day before breakfast. 300 mL 2 ??? polyethylene glycol (Miralax) 17 g packet 17 g by Per G Tube route 2 (two) times a day. Dissolve packet in 8 ounces of water and infuse through PEG twice daily (Patient not taking: Reported on 05/13/2023) 60 packet 1 ??? [DISCONTINUED] erythromycin ethylsuccinate (EES) 200 MG/5ML suspension (Patient not taking: Reported on 03/25/2023) ??? [DISCONTINUED] hydrocortisone 2.5 % ointment Apply 1 application topically if needed. Clinical information reviewed: Allergies NPO Status Physical Exam Anesthesia Plan ASA 3 Anesthesia technique(s) discussed with the patient/family: General Anesthesia plan agreed upon was: general Post operative pain planned: discuss with surgical team Induction planned: intravenous Airway management planned: general endotracheal Special technique planned: malignant hyperthermia precautions, total intravenous anesthesia Premedication planned: none Anesthetic plan and risks discussed with patient and parent/guardian. Use of blood products discussed with patient and parent/guardian who consented to blood products. Plan discussed with OFFICE MESSENGER. Additional Equipment Requests documented in this encounter Plan of Treatment Not on file documented as of this encounter Procedures Procedure Name Priority Date/Time Associated Diagnosis Comments ANESTHESIA ULTRASOUND GUIDED Routine 05/14/2023 2:54 PM EDT PB ANESTHESIA NON-TIMED PROCEDURE PLACEHOLDER Routine 05/14/2023 2:54 PM EDT [place] AN CENTRAL LINE DOUBLE LUMEN Routine 05/14/2023 2:54 PM EDT ANESTHESIA ULTRASOUND GUIDED Routine 05/14/2023 2:53 PM EDT PB ANESTHESIA NON-TIMED PROCEDURE PLACEHOLDER Routine 05/14/2023 2:53 PM EDT [place] AN CENTRAL LINE TRIPLE LUMEN Routine 05/14/2023 2:53 PM EDT PB ANESTHESIA PLACEHOLDER Routine 05/14/2023 2:26 PM EDT [place] AN ELECTIVE ENDOTRACHEAL AIRWAY Routine 05/14/2023 2:26 PM EDT documented in this encounter Results * [place] AN CENTRAL LINE DOUBLE LUMEN, PB ANESTHESIA NON-TIMED PROCEDURE PLACEHOLDER, ANESTHESIA ULTRASOUND GUIDED (05/14/2023 2:54 PM EDT) Narrative Larry Bowden MD - 05/14/2023 2:54 PM EDT Larry Bowden MD ? 05/14/2023 ??2:56 PM Central Venous Line: A central venous line was placed in the OR for the following indication(s): central venous access. Sterility preparation included the following: provider hand hygiene performed prior to central venous catheter insertion, all 5 sterile barriers used (gloves, gown, cap, mask, large sterile drape) during central venous catheter insertion, antiseptic used during central venous catheter insertion and skin prep agent completely dried prior to procedure. The patient was placed in Trendelenburg position. Right internal jugular vein was prepped. The site was prepped with Chlorhexidine. A 5 Fr (size), 8 (length), introducer double lumen was placed. During the procedure, the following specific steps were taken: target vein identified, needle advanced into vein and blood aspirated and guidewire advanced into vein. Seldinger technique used Procedure performed using ultrasound guidance. Sterile gel and probe cover used in ultrasound-guided central venous catheter insertion. Intravenous verification was obtained by venous blood return. Post insertion care included: all ports aspirated, all ports flushed easily, guidewire removed intact, Biopatch applied, line sutured in place and dressing applied. During the procedure the patient experienced: patient tolerated procedure well with no complications. Additional notes: Initially double lumen peds cvc placed for venous access due to difficult peripheral access while pt awake. ??CVC was not sutured in due to not believing pt would require access for long. ??Induction there after, uneventful. ??While pt being moved CVC accidentally removed. ??Triple lumen then placed and sutured Staffing Performed: Anesthesiologist Anesthesiologist: Larry Bowden MD I personally performed the procedure us Larry Bowden MD ANESTHESIA ORDERABLES Final R esult * [place] AN CENTRAL LINE TRIPLE LUMEN, PB ANESTHESIA NON-TIMED PROCEDURE PLACEHOLDER, ANESTHESIA ULTRASOUND GUIDED (05/14/2023 2:53 PM EDT) Narrative Larry Bowden MD - 05/14/2023 2:53 PM EDT Larry Bowden MD ? 05/14/2023 ??2:53 PM Central Venous Line: A central venous line was placed in the OR for the following indication(s): central venous access. Sterility preparation included the following: provider hand hygiene performed prior to central venous catheter insertion, all 5 sterile barriers used (gloves, gown, cap, mask, large sterile drape) during central venous catheter insertion, antiseptic used during central venous catheter insertion and skin prep agent completely dried prior to procedure. The patient was placed in Trendelenburg position. Right internal jugular vein was prepped. The site was prepped with Chlorhexidine. A 7 Fr (size), 20 (length), introducer triple lumen was placed. During the procedure, the following specific steps were taken: target vein identified, needle advanced into vein and blood aspirated and guidewire advanced into vein. Seldinger technique used Procedure performed using ultrasound guidance. Sterile gel and probe cover used in ultrasound-guided central venous catheter insertion. Intravenous verification was obtained by venous blood return and manometry. Post insertion care included: all ports aspirated, all ports flushed easily, guidewire removed intact, Biopatch applied, line sutured in place and dressing applied. During the procedure the patient experienced: patient tolerated procedure well with no complications. Staffing Performed: Anesthesiologist Anesthesiologist: Larry Bowden MD I personally performed the procedure us Larry Bowden MD ANESTHESIA ORDERABLES Final R esult * [place] AN ELECTIVE ENDOTRACHEAL AIRWAY, PB ANESTHESIA PLACEHOLDER (05/14/2023 2:26 PM EDT) Narrative Aurelio Alonzo CRNA - 05/14/2023 2:26 PM EDT Aurelio Alonzo CRNA ? 05/14/2023 ??3:17 PM Airway Date/Time: 05/14/2023 2:26 PM Urgency: elective Airway not difficult General Information and Staff Patient location during procedure: OR OFFICE MESSENGER: Aurelio Alonzo CRNA Performed: OFFICE MESSENGER Indications and Patient Condition Indications for airway management: anesthesia Preoxygenated: yes Patient position: neutral neck position. Mask difficulty assessment: 1 - vent by mask Planned trial extubation Final Airway Details Final airway type: endotracheal airway Successful airway: ETT Cuffed: yes Successful intubation technique: video laryngoscopy Endotracheal tube insertion site: oral Blade: other (s3) Blade size: #3 ETT size (mm): 6.5 Cormack-Lehane Classification: grade IIb - view of arytenoids or posterior of glottis only Placement verified by: chest auscultation and capnometry Inital cuff pressure (cm H2O): 20 Measured from: lips ETT to lips (cm): 23 Number of attempts at approach: 1 Additional Comments Elective glidescope d/t limited mouth opening and limited rom of neck, was able to visualize posterior portion of chords with anterior pressure. There was very limited room in the mouth. Intubation was atraumatic. us Larry Bowden MD ANESTHESIA ORDERABLES Final R esult documented in this encounter Visit Diagnoses Not on filedocumented in this encounter Administered Medications Inactive Administered Medications - up to 3 most recent administrations Medication Order MAR Action Action Date Dose Rate Site cefOXitin (Mefoxin) 2 g in sodium chloride 0.9% 100 mL IVPB (Mini-Bag Plus) 2 g, Intravenous, Once, 1 dose, On Fri05/14/23 at 1215, Routine, Holding - Preprocedure New Bag 05/14/2023 3:02 PM EDT 2 g dexamethasone (Decadron) injection Intravenous, As needed, Starting on Fri05/14/23 at 1509, Until Fri05/14/23 at 1626, Routine, Anesthesia Intraprocedure Given 05/14/2023 3:09 PM EDT 4 mg fentaNYL (Sublimaze) injection Intravenous, As needed, Starting on Fri05/14/23 at 1530, Until Fri05/14/23 at 1626, Routine, Anesthesia Intraprocedure Given 05/14/2023 4:20 PM EDT 25 mcg Given 05/14/2023 4:01 PM EDT 25 mcg Given 05/14/2023 3:40 PM EDT 12.5 mcg lactated Ringer's infusion Intravenous, Continuous PRN, Starting on Fri05/14/23 at 1419, Until Fri05/14/23 at 1626, Routine New Bag 05/14/2023 2:19 PM EDT midazolam (Versed) injection Intramuscular, As needed, Starting on Fri05/14/23 at 1428, Until Fri05/14/23 at 1626, Routine, Anesthesia Intraprocedure Given 05/14/2023 2:28 PM EDT 2 mg ondansetron (Zofran) injection Intravenous, As needed, Starting on Fri05/14/23 at 1527, Until Fri05/14/23 at 1626, Routine, Anesthesia Intraprocedure Given 05/14/2023 3:27 PM EDT 4 mg phenylephrine in NS (Cisco-Synephrine) 100 mcg/mL prefilled syringe Intravenous, As needed, Starting on Fri05/14/23 at 1502, Until Fri05/14/23 at 1626, Routine, Anesthesia Intraprocedure Given 05/14/2023 3:02 PM EDT 50 mcg propofol (Diprivan) infusion 10 mg/mL Intravenous, Continuous PRN, Starting on Fri05/14/23 at 1419, Until Fri05/14/23 at 1626, Routine Rate/Dose Change 05/14/2023 3:05 PM EDT 75 mcg/kg/min 18.585 mL/hr Restarted 05/14/2023 2:42 PM EDT 100 mcg/kg/min 24.78 mL/ hr New Bag 05/14/2023 2:19 PM EDT 100 mcg/kg/min 24.78 mL/ hr propofol (Diprivan) injection Intravenous, As needed, Starting on Fri05/14/23 at 1419, Until Fri05/14/23 at 1626, Routine, Anesthesia Intraprocedure Given 05/14/2023 3:21 PM EDT 50 mg Given 05/14/2023 2:19 PM EDT 50 mg remifentanil (Ultiva) injection Intravenous, Continuous PRN, Starting on Fri05/14/23 at 1419, Until Fri05/14/23 at 1626, Routine, Anesthesia Intraprocedure Rate/Dose Change 05/14/2023 3:30 PM EDT 0.1 mcg/kg/min 0.248 mL/hr Rate/Dose Change 05/14/2023 3:16 PM EDT 0.25 mcg/kg/min 0. 619 mL/hr Rate/Dose Change 05/14/2023 3:07 PM EDT 0.15 mcg/kg/min 0. 372 mL/hr rocuronium (ZeMuron) injection Intravenous, As needed, Starting on Fri05/14/23 at 1419, Until Fri05/14/23 at 1626, Routine, Anesthesia Intraprocedure Given 05/14/2023 2:19 PM EDT 30 mg sugammadex (Bridion) 200 MG/2ML injection Intravenous, As needed, Starting on Fri05/14/23 at 1550, Until Fri05/14/23 at 1626, Routine, Anesthesia Intraprocedure Given 05/14/2023 3:50 PM EDT 100 mg Given 05/14/2023 3:49 PM EDT 100 mg documented in this encounter Additional Health Concerns Assessment Noted Time A fall risk assessment has been complete d for the patient 03/25/2023 2:12 PM EDT documented as of this encounter Care Teams Anesthetic Assistant Relationship Specialty Start Date End Date Rhys Butts MD [address] [place] [address] PCP - General 03/02/21 documented as of this encounter
--- OUTSIDE RECORDS SUMMARY | 2024-09-29 14:25 | XMS_ITS | Encounter Summary ---
Author Organization Healthcare Address [address] [place] [address] Care Team Providers Care Imagery Analyst Name Role Phone Rhys Butts MD Primary Care Provider [phone] Encounter Details Date Type Department Care Team (Latest Contact Info) Description 03/25/2023 Travel Social History Tobacco Use Types Packs/Day [...] documented as of this encounter Care Teams Imagery Analyst Relationship Specialty Start Date End Date Rhys Butts MD [address] [place] [address] PCP - General 03/02/21 documented as of this encounter
--- OUTSIDE RECORDS SUMMARY | 2024-09-29 14:25 | XMS_ITS | Encounter Summary ---
Author Organization Healthcare Address [address] [place], [place] [id number] Care Team Providers Care Cadd Instructor Name Role Phone Rhys Butts MD Primary Care Provider [phone] Encounter Details Date Type Department Care Team (Latest Contact Info) Description 06/03/2023 Travel Social History Tobacco Use Types Packs/Day [...] drink first t eder in the morning (EYE-HIGH PRESSURE CLEANER) to steady your nerves or to get [...] for the patient 06/03/2023 1:27 PM EDT documented as of this encounter Care Teams Cadd Instructor Relationship Specialty Start Date End Date Rhys Butts MD [address] [place] [address] PCP - General 03/02/21 documented as of this encounter
--- OUTSIDE RECORDS SUMMARY | 2024-09-29 14:25 | XMS_ITS | Encounter Summary ---
Author Organization Healthcare Address [address] [place] [address] Care Team Providers Care Warehouse Laborer Name Role Phone Rhys Butts MD Primary Care Provider [phone] Encounter Details Date Type Department Care Team (Latest Contact Info) Description 03/25/2023 1:00 PM EDT Pre-Admission Testing [facility] [address] [place] [id number] Preop testing (Primary Dx); Gastroparesis Social History Tobacco Use Types Packs/Day Years [...] Sign Reading Time Taken Comments Blood Pressure 95/60 03/25/2023 12:39 PM EDT Pulse 66 03/25/2023 12:39 PM EDT Temperature 36.7 ??C (98.1 ??F) 03/25/2023 12:39 PM E DT Respiratory Rate 18 03/25/2023 12:39 PM EDT Oxygen Saturation 96% 03/25/2023 12:39 PM EDT Inhaled Oxygen Concentration - - Weight 40.8 kg (90 lb) 03/25/2023 12:39 PM EDT Height 157.5 cm (5' 2 ) 03/25/2023 12:39 PM EDT Body Mass Index 16.46 03/25/2023 12:39 PM EDT documented in this encounter Miscellaneous Notes * PAT Evaluation Note - Miryam Zhang PA - 03/25/2023 1:00 PM EDT Images from the original note were not included. HPI Austin Prieto is a 27 y.o. male who presents with Duchenne's muscular dystrophy and overflow incontinence, suspected, now scheduled for ostomy creation. Pulmonary clearance added below. Cardiology clearance received 04/16/23 ([employer]) - From anesthesia standpoint Mr. Prieto is clear for surgery. Past Medical History: Diagnosis Date Failure to [...] of pneumonia (recurrent) History of pneumonia No family history on file. Social History Tobacco Use Smoking status: Never Passive exposure: Never Smokeless tobacco: Never Vaping Use Vaping Use: Never used Substance Use Topics Alcohol use: No Drug use: Never Comment: Drug use: No drug use SURGICAL HISTORY: Past Surgical History: Procedure Laterality Date GASTROSTOMY TUBE PLACEMENT N/A Feeding Tube from Smartsheet SPINAL FUSION TYMPANOSTOMY TUBE PLACEMENT N/A Ear Pressure Equalization Tube, Insertion, Bilaterally from Smartsheet No Known Allergies MEDICATIONS: Current Outpatient Medications: bisoprolol, Take 5 mg by mouth 1 (one) time each day. escitalopram, Take 10 mg by mouth 1 (one) time each day. furosemide, Take 20 mg by mouth 1 (one) time each day. gabapentin, Take 12.5mL 3 times Daily HYDROcodone-acetaminophen, if needed. hydrocortisone, Apply 1 application topically if needed. LORazepam, Take 0.5 mg by mouth every 6 (six) hours if needed for anxiety. polyethylene glycol, 17 g by Per G Tube route 2 (two) times a day. Dissolve packet in 8 ounces of water and infuse through PEG twice daily Entresto, Take by mouth 2 (two) times a day. 49-51mg baclofen, Take 10 mg by mouth 3 (three) times a day. erythromycin ethylsuccinate, metoclopramide, Take 10 mL (10 mg total) by mouth 1 (one) time each day before breakfast. ROS Anesthesia: Date of last anesthetic: OSH - gastromy tube 2011 NO GA issues. history of previous anesthesia. Does not have a history of anesthetic complications, motion sickness, obstructive sleep apnea and PONV. Cardiovascular: cardiomyopathy, CHF and dysrhythmias (tachycardia, right bundle brach block). Does not have angina,CAD, hyperlipidemia, murmur, orthopnea, past [place], PVD, syncope or valvular heart disease. no hypertension: Exercise tolerance is wheeelchair bound. Cardio additional comments: OSH Card note 12/11/22 (media) Patient here for 6 mo f/u cardiomyopathy. Denies cardiac complaints. EF-50% recovered. On max tolerated GDMT. Plan: ECHO prior to next visit RTC 6 months. Cardiac clearance letter in media from Dr. Mg 04/16/23 - Austin Conner is at a low and acceptable risk from a cardiovascular standpoint to proceed with planned GI surgery.. Respiratory: mechanically ventilated (Trilogy night/mask and during day uses straw. Mode AVAPS, rate 5 cm, tidalvolume 400ml, max pressure 30cm, pressure support max 15cm, min 6cm, EPAP max is 6cm, min 6cm, breath rate is auto, trigger type is auto track, rise time 3). Has not had an upper respiratory infection in last 30 days. Has not had bronchitis in the last 30 days, pneumonia in the last 30 days or COVID in the last 30 days. Respiratory ROS additional comments: OSH Pulm note 12/23/22 Dr. Aquino (CE) 1) Chronic hypercapneic respiratory failure Patient with transient non-specific AM only dyspnea that is resolved with getting up, without nocturnal dyspnea. As such, and given objective testing to date of ABG suggests adequate gas exchange, feel that further adjustments to nocturnal or daytime ventilator settings would be unlikely to result in global improvement. Unfortunately, BMP could not be obtained, which is likely to better encapsulate global gas exchange than an ABG (which is indicative of adequate minute ventilation when awake and in chair). Will re-order nocturnal oximetry to ensure adequate oxygenation; nocturnal ventilation will be challenging to effectively assess. - continue current ventilator settings - nocturnal oximetry as above 2) Duchenne Muscular Dystrophy - as above F/u 6 months Pulm clearance 03/26/23 Addendum 03/26/2023: I was asked to comment on suitability for Austin to undergo colostomy creation from a pulmonary perspective. This patient is at low risk (1.6%) for a post-operative pulmonary complication (PPC) based upon ARISCAT risk index score. His PPC risk is not prohibitive, however, and there is no additional optimization that can be implemented at this time to mitigate the patients pulmonary operative risk. Additionally, this evaluation does not obviate the inherent risks of operative intervention and anesthesia,nor does it account for the intrinsic complexities of a chronically ventilator dependent patient with muscular dystrophy. Overall, to reduce the risk of post operative pulmonary complications I recommend: - Lung expansion maneuvers postoperatively - use of noninvasive ventilatory support at home settings with augmentation as needed based upon levels of sedation/analgesia - Defer elective surgery if pt has an active respiratory infection within 30 days of planned surgery date HEENT: difficulty swallowing (difficulty with pills and some foods.).Does not have chipped teeth, loose teeth or missing teeth. Neurological: neuromuscular disease (Duchenne Muscular Dystroph). Does not have headaches. no seizures: Did not have a cerebrovascular accident.Does not have TIA. Neuro additional comments: Goes to Neurologist at [facility] - last visit approx 1.5 years ago. Musculoskeletal: cervical spine limited mobility. [facility] additional comments: Duchenne Muscular Dystrophy Integumentary: Negative skin ROS. Gastrointestinal: GERD: well controlled.gastroparesis. Does not have GI malignancy, hernia or pancreatitis. Does not have cirrhosis or hepatitis. Does not have weight loss. Genitourinary: neurogenic bladder. Does not have recurrent UTIs, renal calculi or renal disease. Hematological/Lymphatic: Does not have anemia. History of no DVT. History of no pulmonary embolism. no history of chemotherapy no history of radiation Does not have MRSA or tuberculosis. Endocrine/Metabolic: does not have diabetes mellitus. Does not have thyroid disorder. Physical Exam Airway Mallampati: Unable to access Mouth opening: limited TM distance: >3 FB Neck ROM: limited Cardiovascular - normal exam Dental - normal exam Pulmonary - normal exam Neurological Skin Musculoskeletal Extremities Visit Vitals BP 95/60 Pulse 66 Temp 36.7 ??C (98.1 ??F) (Tympanic) Resp 18 Ht 1.575 m (5' 2 ) Wt 40.8 kg (90 lb) SpO2 96% BMI 16.46 kg/m?? Smoking Status Never BSA 1.34 m?? Lab Results Component Value Date WBC 4.91 03/25/2023 HGB 11.2 (L) 03/25/2023 HCT 34.2 (L) 03/25/2023 MCV 94 03/25/2023 PLT 293 03/25/2023 Lab Results Component Value Date GLUCOSE 122 (H) 03/25/2023 BUN 31 (H) 03/25/2023 CREATININE <0.11 (L) 03/25/2023 BCR 03/25/2023 Comment: Unable to calculate, at least one value is above or below the detection limit. NA 141 03/25/2023 K 4.1 03/25/2023 CL 101 03/25/2023 CO2 26 03/25/2023 Anesthesia Plan ASA 3 Anesthesia technique(s) discussed with the patient/family: General (Discussed with Dr. Aviles. Patient to follow-up with Team Leader Surgery for clearance and I will contact international bank manager and ask if they will provide clearance.) KAREN Gee * Preprocedure Instructions - Miryam Zhang PA - 03/25/2023 1:00 PM EDT Current Medications Medication Instructions bisoprolol (Zebeta) 5 MG tablet Take as prescribed escitalopram (Lexapro) 10 MG tablet Take as prescribed furosemide (Lasix) 20 MG tablet Hold day of surgery gabapentin (Neurontin) 250 MG/5ML solution Take as prescribed HYDROcodone-acetaminophen ([place]) 5-325 MG tablet Take as prescribed hydrocortisone 2.5 % ointment Hold day of surgery LORazepam (Ativan) 0.5 MG tablet Take as prescribed polyethylene glycol (Miralax) 17 g packet Hold day of surgery sacubitril-valsartan (Entresto) 49-51 MG tablet Hold day of surgery General Preoperative Instructions You will be called the business day before surgery with your arrival time Do not eat or drink anything after midnight except water with your medications unless other instructions are given No alcohol or smoking prior to surgery Arrive on time to avoid delays Parking/Registration procedure explained You MUST have a responsible adult available for transport to and from hospital Visitation policy for the day of surgery reviewed Bring insurance card, photo ID, along with power of real estate associate attorney, guardianship or advanced directives if applicable Do not bring money, jewelry or other valuables Hibiclens bathing instructions reviewed if applicable Notify surgeon of fever, illness, any changes or if you decide not to have surgery Pediatric patients under 12 years of age (If applicable) No solid food or milk after midnight Formula 6 hours prior to arrival for surgery Breast milk 4 hours prior to arrival surgery Clear liquids 2 hours prior to arrival for surgery Diabetes Instructions (If applicable) Take diabetes medication as instructed You may have up to 4 ounces of apple juice 2 hours prior to arrival for surgery for low glucose documented in this encounter Plan of Treatment Not on file documented as of this encounter Results * (ABNORMAL) Basic metabolic panel (03/25/2023 1:48 PM EDT) Glucose, Plasma 122(H) 74 - 99 mg/dL 03/25/2023 3:52 PM EDT [facility] BUN, Plasma 31(H) 7 - 21 mg/dL 03/25/2023 3:52 PM EDT [facility] Creatinine, Plasma <0.11(L) 0.80 - 1.30 mg/dL 03/25/2023 3:52 PM EDT [facility] BUN/Creatinine Ratio 03/25/2023 3:52 PM EDT [facility] Comment:Unable to calculate, at least one value is above or below the detection limit. Sodium, Plasma 141 136 - 145 mmol/L 03/25/2023 3:52 PM EDT [facility] Potassium, Plasma 4.1 3.7 - 4.8 mmol/L 03/25/2023 3:52 PM EDT [facility] Chloride, Plasma 101 97 - 107 mmol/L 03/25/2023 3:52 PM EDT [facility] CO2, Plasma 26 22 - 29 mmol/L 03/25/2023 3:52 PM EDT [facility] Anion Gap 14 6 - 16 mmol/L 03/25/2023 3:52 PM EDT [facility] Total Calcium, Plasma 9.9 8.9 - 10.2 mg/dL 03/25/2023 3:52 PM EDT [facility] eGFRcr 03/25/2023 3:52 PM EDT [facility] Comment:Unable to calculate, at least one value is above or below the detection limit. Blood Venous blood specimen / Unknown Venipuncture / Unknown 03/25/2023 1:48 PM EDT 03/25/2023 1:48 PM EDT [facility] BLOOD ORDERABLES Final Result Performing Organization Address City/State/[facility] Co de Phone Number [facility] [address] [place] [phone] * (ABNORMAL) CBC (03/25/2023 1:48 PM EDT) WBC Count 4.91 3.70 - 10.30 10*3/uL LAB HEMATOLOGY METHOD 03/25/2023 3:41 PM EDT [facility] RBC Count 3.64(L) 4.60 - 6.10 10*6/uL LAB HEMATOLOGY METHOD 03/25/2023 3:41 PM EDT [facility] HGB 11.2(L) 13.7 - 17.5 g/dL LAB HEMATOLOGY METHOD 03/25/2023 3:41 PM EDT [facility] HCT 34.2(L) 40.0 - 51.0 % LAB HEMATOLOGY METHOD 03/25/2023 3:41 PM EDT [facility] Platelet Count 293 155 - 369 10*3/uL LAB HEMATOLOGY METHOD 03/25/2023 3:41 PM EDT [facility] MCV 94 79 - 98 fL LAB HEMATOLOGY METHOD 03/25/2023 3:41 PM EDT [facility] MCH 30.8 26.0 - 32.0 pg LAB HEMATOLOGY METHOD 03/25/2023 3:41 PM EDT [facility] MCHC 32.7 30.7 - 35.5 g/dL LAB HEMATOLOGY METHOD 03/25/2023 3:41 PM EDT [facility] RDW 12.3 11.5 - 14.5 % LAB HEMATOLOGY METHOD 03/25/2023 3:41 PM EDT [facility] MPV 11.2 8.8 - 12.5 fL LAB HEMATOLOGY METHOD 03/25/2023 3:41 PM EDT [facility] nRBC 0.0 <=0.0 per 100 WBCs LAB HEMATOLOGY METHOD 03/25/2023 3:41 PM EDT [facility] Blood Venous blood specimen / Unknown Venipuncture / Unknown 03/25/2023 1:48 PM EDT 03/25/2023 1:48 PM EDT [facility] BLOOD ORDERABLES Final Result Performing Organization Address City/State/[facility] Co de Phone Number [facility] [address] [place] [phone] * ECG Adult (Performed in Heart Station) (03/25/2023 1:02 PM EDT) EKG DIAGNOSIS CLASS Abnormal MUSE ECG Ventricular Rate 61 BPM MUSE ECG Atrial Rate 61 BPM MUSE ECG OK Interval 118 ms MUSE ECG QRSD Interval 142 ms MUSE ECG QT Interval 436 ms MUSE ECG QTC Interval 438 ms MUSE ECG P [place] -1 degrees MUSE ECG R [place] 102 degrees MUSE ECG T [place] 34 degrees MUSE ECG Diagnosis Normal sinus rhythm MUSE ECG Diagnosis with sinus arrhythmia MUSE ECG Diagnosis prominent voltage MUSE ECG Diagnosis Right bundle branch block MUSE ECG Diagnosis Lateral infarct MUSE ECG Diagnosis , age undetermined MUSE ECG Diagnosis Abnormal ECG MUSE ECG Diagnosis Confirmed by Jo Ann Yi ([id number]) on 03/28/2023 5:57:14 AM MUSE ECG 03/25/2023 1:02 PM EDT 03/28/2023 5:57 AM EDT us Miryam JONES ECG ORDERABLES Final Resu lt MUSE ECG documented in this encounter Visit Diagnoses Diagnosis Preop testing- Primary Unspecified pre-operative examination Gastroparesis documented in this encounter Additional Health Concerns Assessment Noted Time A fall risk assessment has been complete d for the patient 03/25/2023 2:12 PM EDT documented as of this encounter Care Teams Warehouse Laborer Relationship Specialty Start Date End Date Rhys Butts MD [address] [place] [address] PCP - General 03/02/21 documented as of this encounter
--- OUTSIDE RECORDS SUMMARY | 2024-09-29 14:25 | XMS_ITS | Encounter Summary ---
Author Organization Healthcare Address [address] [place] [address] Care Team Providers Care Commissioned Police Officer Name Role Phone Rhys Butts MD Primary Care Provider [phone] Reason for Visit * Reason Onset Date Comments HCN - Patient Message 10/07/2023 New order for supplies Encounter Details Date Type Department Care Team (Late st Contact Info) Description 10/07/[address] [facility] General Surgery [address], [address] [place] [address] Won Santos MD [address] [place] [address] [place] [address] HCN - Patient Message (New order for supplies ) Social History Tobacco Use Types Packs/Day [...] drink first t eder in the morning (EYE-SITE CONTROLLER) to steady your nerves or to get [...] Telephone Encounter - Kimberly Null RN - 10/15/2023 3:32 PM EST Re faxed signed order to [employer]. * Telephone Encounter - Ximena Purdy - 10/15/2023 11:54 AM EST Clinical Concern/Question Reason for Call: Patient's Mother Mao is calling back, says the supply company doesn't have the supply order. Best contact number: [phone] (mobile) Optimal time of day to reach caller: ANYTIME Additional comments/information from caller: None Note: Please do not reply to this message. Follow-up communication and further actions as a result of this message need to be communicated with the patient directly, if the patient is not active onMyChart. If the patient is active on MyChart, they will receive notification of the communication/outcome via [employer]. * Telephone Encounter - Kimberly Null RN - 10/09/2023 2:58 PM EST Called patient's mother. Ostomy supply order has been signed and faxed back. Verbalized understanding. * Telephone Encounter - Elizabeth Olivares - 10/07/2023 8:41 AM EST Patient Phone Message Reason for Call: Pt mother states [facility] is requesting a new order for supplies please. Best contact number and optimal time of day to reach caller: [phone] Note: Please do not reply to this message. Follow-up communication and further actions as a result of this message need to be communicated with the patient directly, if the patient is not active onMyChart. If the patient is active on MyChart, they will receive notification of the communication/outcome via MyChart. documented in this encounter Plan of Treatment [...] documented as of this encounter Care Teams Commissioned Police Officer Relationship Specialty Start Date End Date Rhys Butts MD [address] [place] [address] PCP - General 03/02/21 documented as of this encounter
--- OUTSIDE RECORDS SUMMARY | 2024-09-29 14:25 | XMS_ITS | Encounter Summary ---
Author Organization Healthcare Address [address] [place] [address] Care Team Providers Care Forensic Identification Specialist Name Role Phone Rhys Butts MD Primary Care Provider [phone] Reason for Visit * Reason Onset Date Comments DME overnight pulse oximetry 05/06/2023 Encounter Details Date Type Department Care Team (Late st Contact Info) Description 05/06/2023 Telephone [facility] Medicine Specialties [address] [place] [address] Carolyn Samaniego DME overnight pulse oximetry Social History Tobacco Use Types Packs/Day Years [...] encounter Miscellaneous Notes * Telephone Encounter - Carolyn Samaniego - 05/06/2023 11:35 AM EDT Fax to [phone] documented in this encounter Plan of Treatment Not on file documented as of this encounter Visit Diagnoses Not on filedocumented in this encounter Additional Health Concerns Assessment Noted Time A fall risk assessment has been complete d for the patient 03/25/2023 2:12 PM EDT documented as of this encounter Care Teams Forensic Identification Specialist Relationship Specialty Start Date End Date Rhys Butts MD [address] [place] [address] PCP - General 03/02/21 documented as of this encounter
--- OUTSIDE RECORDS SUMMARY | 2024-09-29 14:25 | XMS_ITS | Encounter Summary ---
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 INSTALLER) to steady your nerves or to get [...] Sign Reading Time Taken Comments Blood Pressure 95/67 06/03/2023 1:23 PM EDT Pulse 69 06/03/2023 1:23 PM EDT Temperature 36.4 ??C (97.5 ??F) 06/03/2023 1:23 PM ED T Respiratory Rate - - Oxygen Saturation - - Inhaled Oxygen Concentration - - Weight 41.3 kg (91 lb) 06/03/2023 1:23 PM EDT Height 144.8 cm (4' 9.01 ) 06/03/2023 1:23 PM ED T Body Mass Index 19.69 06/03/2023 1:23 PM EDT documented in this encounter Miscellaneous Notes * Progress Notes - Sujata Michelle N - 06/03/2023 1:45 PM EDT Chief Complaint: Chief Complaint Patient presents with Follow-up 2 week DC HPI: Mr. Austin Prieto is a 28 y.o. male with a PMH of Duchenne's muscular dystrophy, chronic respiratory failure with ventilator dependence, heart failure with last EF 49%, s/p G tube placement. He underwent a colostomy creation on 05/14/23 due to chronic constipation refractory to medical management. Today he reports his colostomy has been functioning well without issues at this time. He notes some bleeding around the stoma with transfer between wheelchair and bed but states it quickly resolves spontaneously. He denies abdominal pain. He receives nutrition primarily through is G tube but is alsotolerating PO intake. He has occasional pruritis around the stoma but overall is doing well. Primary Care Physician: Rhys Butts MD Past [...] GASTROSTOMY TUBE PLACEMENT N/A Feeding Tube from [facility] SPINAL FUSION TYMPANOSTOMY TUBE PLACEMENT N/A Ear Pressure Equalization Tube, Insertion, Bilaterally from [facility] Prior to Admission medications Medication Sig Start Date End Date Taking? Authorizing Provider escitalopram (Lexapro) 10 MG tablet 1 tablet (10 mg) by Per G Tube route 1 (one) time each day. 03/21/21 Yes Dat Flores MD furosemide (Lasix) 20 MG tablet 1 tablet (20 mg) by Per G Tube route 1 (one) time each day in the morning. 12/18/20 Yes Dat Flores MD gabapentin (Neurontin) 250 MG/5ML solution 12.5 mL (625 mg) by Per G Tube route 3 (three) times a day. 04/25/21 Yes Dat Flores MD LORazepam (Ativan) 0.5 MG tablet 1 tablet (0.5 mg) by Per G Tube route every night. Yes Dat Flores MD naloxone (Narcan) 4 mg/0.1 mL nasal spray 1. Give 1 spray in nostril for no/slow breathing or cannot wake after opioid use 2. Call 911 3. Repeat in other nostril if symptoms continue . 05/17/23 05/16/24 Yes Mary Anne Giang DO sacubitril-valsartan (Entresto) 49-51 MG tablet 1 tablet by Per G Tube route 2 (two) times a day. 02/17/21 Yes Dat Flores MD acetaminophen (Tylenol) 325 MG tablet Take 2 tablets (650 mg) by mouth every 6 (six) hours. Patient not taking: Reported on 06/03/2023 05/17/23 Mary Anne Giang DO bisoprolol (Zebeta) 5 MG tablet 1 tablet (5 mg) by Per G Tube route 1 (one) time each day. Patient not taking: Reported on 06/03/2023 12/18/20 Dat Flores MD methocarbamol (Robaxin) 500 MG tablet Take 1 tablet (500 mg) by mouth every 6 (six) hours for 10 days. 05/17/23 05/27/23 Padmaja, Mary Anne E, DO No Known Allergies Family History Problem Relation Name Age of [...] Stability: Not on file Review of Systems All other systems reviewed and are negative. Visit Vitals BP 95/67 (BP Location: Right arm, Patient Position: Sitting) Pulse 69 Temp 36.4 ??C (97.5 ??F) Ht 1.448 m (4' 9.01 ) Wt 41.3 kg (91 lb) BMI 19.69 kg/m?? Physical Exam Cardiovascular: Rate and Rhythm: Normal rate. Pulmonary: Comments: Ventilator dependent Abdominal: General: There is distension. Palpations: Abdomen is soft. Tenderness: There is no abdominal tenderness. Comments: Stoma appear well Musculoskeletal: Comments: Uses electric wheelchair for ambulation Neurological: Mental Status: He is alert. Mental status is at baseline. Psychiatric: Mood and Affect: Mood normal. Thought Content: Thought content normal. Assessment & Plan: In summary, Mr. Austin Prieto is a 28 y.o. male with PMH duchenne's muscular dystrophy, chronic respiratory failure with ventilator dependence, heart failure with last EF 49%, s/p G tube placement who is s/p colostomy creation due to . Overall he is recovering appropriately. At this time our plan includes the following: Follow-up PRN Sujata Michelle, MS3 Cosigned by Won Santos MD at 06/04/2023 6:37 PM EDT Associated attestation - Won Santos MD - 06/04/2023 6:37 PM EDT I saw and evaluated the patient with the medical/COMPUTER INFORMATION SYSTEMS INSTRUCTOR/PA student. I discussed the case with the medical/COMPUTER INFORMATION SYSTEMS INSTRUCTOR/PA student and agree with the findings and plan as documented. I personally performed the Examand Medical Decision Making. Mr. Prieto is a 28-year-old male status post colostomy creation for chronic constipation in the setting of muscular dystrophy. Doing well. PLAN FOLLOWS: RTC PRN. documented in this encounter Plan of Treatment Not on file documented as of this encounter Visit Diagnoses Diagnosis Chronic constipation- Primary Unspecified constipation documented in this encounter Additional Health Concerns Assessment Noted Time A fall risk assessment has been complete d for the patient 06/03/2023 1:27 PM EDT documented as of this encounter Care Teams Parking Cashier Relationship Specialty Start Date End Date Rhys Butts MD [address] [place] [address] PCP - General 03/02/21 documented as of this encounter
--- OUTSIDE RECORDS SUMMARY | 2024-09-29 14:25 | XMS_ITS | Encounter Summary ---
Author Organization Healthcare Address [address] [place] [address] Care Team Providers Care Title Curative Specialist Name Role Phone Rhys Butts MD Primary Care Provider [phone] Encounter Details Date Type Department Care Team (Latest Contact Info) Description 03/24/2023 Travel Social History Tobacco Use Types Packs/Day [...] has been complete d for the patient 02/25/2023 12:34 PM EDT documented as of this encounter Care Teams Title Curative Specialist Relationship Specialty Start Date End Date Rhys Butts MD [address] [place] [address] PCP - General 03/02/21 documented as of this encounter
--- OUTSIDE RECORDS SUMMARY | 2024-09-29 14:25 | XMS_ITS | Encounter Summary ---
Author Organization Healthcare Address [address] [address] Care Team Providers Care Wind Up Operator Name Role Phone Rhys Butts MD Primary Care Provider [phone] Reason for Visit * Auth/Cert (Routine) Specialty Diagnoses / Procedures Referred By Contac t Referred To Contact Diagnoses Chronic idiopathic constipation Chronic idiopathic constipation [K59.04] Procedures OH COLOSTOMY CREATION, COLOSTOMY Won Santos MD [address] [address] Phone: tel: fax: [facility] [address] [place] [address] Phone: tel: Referral ID Status Reason Start Date Expiration Date Visits Re quested Visits Authorized [id number] 1 1 Encounter Details Date Type Department Care Team (Late st Contact Info) Description 05/14/2023 1:00 PM EDT - 05/14/2023 3:00 PM EDT Surgery [facility] [address] [place] [id number] Won Santos MD [id number] [place] [address] CREATION, COLOSTOMY [[id number] (CPT??)] Surgery Details Date/Time Status Location OR Service Patient Class Case Class Case Type Trauma Case? 05/14/2023 1:00 PM Posted [facility]O 2OR 10 Colorectal Surgery Admit E-Electiv e Panel 1 Procedure LRB Anes Op Region Wound Class Comments CREATION, COLOSTOMY N/A General Abdomen Class II/ Clean Contaminated RT 90min Surgeon Surgeon Role Service Panel Won Santos MD Primary Colorectal 1 Mary Anne Giang DO Resident - Assisting General Surger y 1 Special Needs Skytron Bed, SSI Colon Bundle documented in this encounter Social History Tobacco [...] drink first t eder in the morning (EYE-YEAST CULTURE DEVELOPER) to steady your nerves or to get [...] Sign Reading Time Taken Comments Blood Pressure 115/82 05/14/2023 12:35 PM EDT Pulse 79 05/14/2023 12:29 PM EDT Temperature 36.3 ??C (97.4 ??F) 05/14/2023 12:29 PM E DT Respiratory Rate 20 05/14/2023 12:29 PM EDT Oxygen Saturation 100% 05/14/2023 12:35 PM EDT Inhaled Oxygen Concentration - - Weight 41.3 kg (91 lb) 05/14/2023 12:29 PM EDT Height 144.8 cm (4' 9 ) 05/14/2023 12:29 PM EDT Body Mass Index 19.69 05/14/2023 12:29 PM EDT documented in this encounter Discharge Instructions * Discharge Instructions* Rodrick Perdomo MD - 05/17/2023 10:13 AM EDT Images from the original note were not included. [facility] Department of Surgery Division of Colorectal [...] with an appointment time. Questions: Call the [facility] at [phone] during business hours on weekdays or call [facility]'s after hours at [phone] to speak with a resident precast concrete products installer for Colorectal surgery after 5pm or on [...] through Care Everywhere. * Acetaminophen Oral Capsule (East Timorese) * Methocarbamol tablets ([place]se) * Giving an Emergency Dose of Naloxone for Opioid Overdose, Euqj-le-Atog ([place]orese) * Oxycodone Oral Capsule ([place]se) documented in this encounter Medications at Time [...] Note Dilshad Junior 27 y.o. male CSN: [id number] Admission: 05/14/2023 10:50 AM Primary Problem: Chronic idiopathic constipation Primary Rnp: Primary Caregiver: Family Assistance Available at Discharge: Mom Housing Circumstances-Z Codes: Housing Circumstances (select all that apply): None Applicable Patient Referred to Financial or Community Resources: Luis Farfan Discharge Facility/Level of Care Needs: home DME/Equipment Needed after Discharge: Equipment Currently Used at Home: wheelchair, power, shower chair, ventilator, suction, hospital/specialty bed Follow-up: Rhys Butts MD [address] [place], [place] [address] [address] Discharge Transportation: Mom Follow Up Transport: Mom Additional Comments: Pt d/c this past weekend. Final recs received from job placement officer. Information sent to Luis kaur pt to receive sample pack in the mail in 2-3 business days. Information and orders faxed to [facility] as they are in network with pt's insurance plan, confirmed on Friday. Nothing further needed atthis time. Sandy Luo RN * Care Plan - Geneva Armas [...] PCP name and Address: Rhys Butts MD [address] [facility] [address] Referring provider name and address: No referring [...] with Dr. Santos in 2 weeks at [facility]. Surgeries and Procedures CREATION, COLOSTOMY (N/A) Medication [...] HYDROcodone-acetaminophen 5-325 MG tablet Commonly known as: La Belle 1 tablet (5 mg of hydrocodone) by Per G Tube route if needed for moderate pain or severe pain. LORazepam 0.5 MG tablet Commonly known as: Ativan 1 tablet (0.5 mg) by Per G Tube route every night. Discharge Diagnosis Medical Problems Active and Resolved Hospital Problems [facility] Muscular dystrophy, Duchenne (CMS/HCC) * (Principal) Chronic idiopathic constipation Post Discharge Instructions [facility] Department of Surgery Division of Colorectal [...] with an appointment time. Questions: Call the [facility] at [phone] during business hours on weekdays or call [facility]'s after hours at [phone] to speak with a resident precast concrete products installer for Colorectal surgery after 5pm or on [...] Center 06/30/2023 2:00 PM Christian Aquino MD [facility] 07/08/2023 1:00 PM Dane Gabriel PA [facility] Pertinent Physical Exam At Time of Discharge [...] Review Outcome: Ongoing, Progressing Flowsheets (Taken 05/17/2023 9693) Progress: improving Plan of Care Reviewed With: [...] for fear of choking. Encouraged and provided Iraan handout, with RD contact information for further questions. Barbra Yoon RD * Care Plan - AshleyCelestine marieine - 05/16/2023 3:58 PM EDT Problem: Adult [...] with Dr. Santos in 2 weeks at [facility]. * Progress Notes - Sandy Luo RN - 05/16/2023 12:41 PM EDT Case Management Adult Initial Progress Note Dilshad Junior 27 y.o. male CSN: [id number] Admission: 05/14/2023 10:50 AM Primary Problem: Chronic idiopathic constipation Muffle Operator reviewed chart and spoke with patient and his Mom at to complete this Initial Case Management Assessment. PCP: Grecia Mireles Emergency Contact: Extended Emergency Contact Information Primary Emergency Contact: phillip li Mobile Relation: Mother Preferred language: East Timorese Scientist Electronics needed? No Insurance: Primary Visit Coverage Payer Plan Sponsor Code Group Number Group Name MEDICAID-[facility] MEDICAID TRADITIONAL Primary Visit Coverage Subscriber Subscriber ID Subscriber Name Subscriber SSN Subscriber Address [id number] DILSHAD JUNIOR [id number] [id number] Patient information: Primary Caregiver: Family Accompanied by/Relationship: Mom Support System: Immediate family Daily Living Activities: Functional Status: Maximum assistance Living Arrangements: Parent/Gaurdian, Family Type of Residence: Single Level [address] [place] [id number] Current DME: Equipment Currently Used at Home: [...] Outpatient Dialysis Services: Living Will/Advance Directive/Power of Winding Inspector And Tester /Guardian: Unable to assess: No Have you reviewed your Advance Directive and is it valid for this stay?: Yes Advance Directive: Patient has advance directive, copy in chart Type of Healthcare Directive: Durable power of claim attorney for health care, Health care treatment directive [...] Mom is his primary caregiver. Pt has [place] Medicaid as his insurance. Transportation home will be provided by his Mom. Pt has listed his Mom, Phillip Li, as his emergency contact, phone # [phone]. Pt obtains medications from [facility]. Pt currently has a power chair, shower chair, ventilator, suction machine, tube feeds and a hospital bed that he uses all equipment. He is not receiving HH services. Latrice kaur, pt interested, obtained consent, will send information when available. Called [facility], spoke to [place], verified they are in network with pt's [...] cut to fit wafer Pouch with filter 55659 Accessories Cavilon skin prep 3342 Powder 7906 Luis adhesive remover 7760 Lubricating deodorant 56727 Elastic barrier strips 27503 Luis ostomy ring cera 2 8805 Delicia [...] MS4 Cosigned by Won Santos MD at 05/19/2023 7:48 AM EDT Associated attestation - Won Santos MD - 05/19/2023 7:48 AM EDT I saw and evaluated the patient with the medical/APPLE PRESS OPERATOR/PA student. I discussed the case with the medical/APPLE PRESS OPERATOR/PA student and agree with the findings and [...] Note Dilshad Junior 27 y.o. male CSN: [id number] Room/Bed 120/120A Nutrition evaluation type: assessment Reason for evaluation: nurse consult Hospital course: 27 y o M with H Duchenne's muscular dystrophy, with subsequent chronic constipation [...] GASTROSTOMY TUBE PLACEMENT N/A Feeding Tube from [employer] SPINAL FUSION TYMPANOSTOMY TUBE PLACEMENT N/A Ear Pressure Equalization Tube, Insertion, Bilaterally from [employer] Social history: Social History Tobacco Use Smoking [...] Nutren 2.0 cyclic TF ~14 hrs at [facility] with goal of 3.5 cans/d; she adjusts rate based on bloating / GI sx. Endorsed stable wt. No questions or concerns at this time. Vitals and Basic Assessment: BP: 106/76 Temp: 36.5 ??C (97.7 ??F) Oxygen Therapy: Supplemental oxygen O2 Delivery Method: CPAP prongs [place] Coma Scale Score: 15 Harjeet Scale Score: [...] Diet Experience & Nutrition History: Nutrition Regimen HVAC SPECIALIST: po for pleasure + 3.5 cans Nutren 2.0 via PEG daily (administered cyclic at [facility]) Diet Education: Will monitor appropriateness of [...] 1:26 PM * Progress Notes - Tj Cherry - 05/15/2023 7:29 AM EDT Colorectal Surgery [...] saw and evaluated the patient with the medical/APPLE PRESS OPERATOR/PA student. I discussed the case with the medical/APPLE PRESS OPERATOR/PA student and agree with the findings and [...] from the original note were not included. [facility] Department of Surgery Division of [...] Ostomy Anticoagulation/DVT ppx: SCDs Pain [facility]: [facility] Level of care: Continue Current Level of Care I have answered and addressed all issues and concerns from the patient and nursing staff. I have notified senior resident/attending precast concrete products installer with any issues or concerns. Lakesha Chen MD PGY-1 * Significant Event - DeboraZuleykaa - 05/14/2023 6:45 PM EDT While adjusting [...] Santos MD - 05/14/2023 3:08 PM EDT [facility] Colon and Rectal Surgery Operative Note TR Santos MD FACS FASCRS Patient: Dilshad Junior : 1995 Date of Procedure: 05/14/2023 Admit Date: 05/14/2023 Facility Location: [facility] Pre-Operative Diagnosis: Chronic idiopathic constipation. Duchenne muscular dystrophy. Cardiomyopathy. Chronic respiratory failure with ventilator dependence. Post-Operative Diagnosis: Same. Procedure: Colostomy creation. Fecal disimpaction. Attending Surgeon: Raz Santos MD FACS FASCRS (present throughout entire procedure). Resident Surgeon: Mary Anne Giang DO. Surgery Team: * Won Santos - Primary Anesthesia Team: Anesthesiologist: Larry Bowden MD INSPECTOR MECHANICAL: Aurelio Alonzo CRNA Anesthesia Type: General ASA [...] benefits, goals, and alternatives were discussed with Mr. Dilshad Junior. Patient agreed to above stated [...] rate 5, intrinsic RR approx. 18, max [id number] cmH2O -chair mode: AC, TV 700, Ti [...] Intravenous Once Padmaja, Mary Anne E, DO Followed by cefOXitin (Mefoxin) 2 g [...] flush 10 mL 10 mL Intravenous PRN Padmaja, Mary Anne E, DO Review of Systems 14pt ROS [...] Mary Anne Giang DO General Surgery PGY-[id number] Cosigned by Won Santos MD at 05/14/2023 [...] OXYGEN THERAPY Routine 05/14/2023 4:00 PM EDT OH COLOSTOMY 05/14/2023 1:30 PM EDT Chronic idiopathic constipation Special Needs Skytron Bed, SSI Colon Bundle documented in this encounter Results * (ABNORMAL) Basic metabolic panel (05/16/2023 4:44 AM EDT) Glucose, Plasma 125(H) 74 - 99 mg/dL 05/16/2023 5:21 AM EDT [facility] BUN, Plasma 19 7 - 21 mg/dL 05/16/2023 5:21 AM EDT [facility] Creatinine, Plasma <0.11(L) 0.80 - 1.30 mg/dL 05/16/2023 5:21 AM EDT [facility] BUN/Creatinine Ratio 05/16/2023 5:21 AM EDT [facility] Comment:Unable to calculate, at least one value is above or below the detection limit. Sodium, Plasma 138 136 - 145 mmol/L 05/16/2023 5:21 AM EDT [facility] Potassium, Plasma 4.1 3.7 - 4.8 mmol/L 05/16/2023 5:21 AM EDT [facility] Chloride, Plasma 104 97 - 107 mmol/L 05/16/2023 5:21 AM EDT [facility] CO2, Plasma 26 22 - 29 mmol/L 05/16/2023 5:21 AM EDT [facility] Anion Gap 8 6 - 16 mmol/L 05/16/2023 5:21 AM EDT [facility] Total Calcium, Plasma 8.9 8.9 - 10.2 mg/dL 05/16/2023 5:21 AM EDT [facility] eGFRcr 05/16/2023 5:21 AM EDT [facility] Comment:Unable to calculate, at least one value is above or below the detection limit. Blood Venous blood specimen / Unknown Venipuncture / Unknown 05/16/2023 4:44 AM EDT 05/16/2023 4:53 AM EDT us Won Santos MD LAB BLOOD ORDERABLES Final Res ult [facility] [address] [place] [address] * (ABNORMAL) CBC W/O Differential (05/16/2023 4:44 AM EDT) WBC Count 7.90 3.70 - 10.30 10*3/uL LAB HEMATOLOGY METHOD 05/16/2023 5:05 AM EDT [facility] RBC Count 3.36(L) 4.60 - 6.10 10*6/uL LAB HEMATOLOGY METHOD 05/16/2023 5:05 AM EDT [facility] HGB 10.3(L) 13.7 - 17.5 g/dL LAB HEMATOLOGY METHOD 05/16/2023 5:05 AM EDT [facility] HCT 31.9(L) 40.0 - 51.0 % LAB HEMATOLOGY METHOD 05/16/2023 5:05 AM EDT [facility] Platelet Count 246 155 - 369 10*3/uL LAB HEMATOLOGY METHOD 05/16/2023 5:05 AM EDT [facility] MCV 95 79 - 98 fL LAB HEMATOLOGY METHOD 05/16/2023 5:05 AM EDT [facility] MCH 30.7 26.0 - 32.0 pg LAB HEMATOLOGY METHOD 05/16/2023 5:05 AM EDT [facility] MCHC 32.3 30.7 - 35.5 g/dL LAB HEMATOLOGY METHOD 05/16/2023 5:05 AM EDT [facility] RDW 12.8 11.5 - 14.5 % LAB HEMATOLOGY METHOD 05/16/2023 5:05 AM EDT [facility] MPV 10.2 8.8 - 12.5 fL LAB HEMATOLOGY METHOD 05/16/2023 5:05 AM EDT [facility] nRBC 0.0 <=0.0 per 100 WBCs LAB HEMATOLOGY METHOD 05/16/2023 5:05 AM EDT [facility] Blood Venous blood specimen / Unknown Venipuncture / Unknown 05/16/2023 4:44 AM EDT 05/16/2023 4:53 AM EDT Won Santos MD LAB BLOOD ORDERABLES Final Res ult [facility] [address] [place] [address] * XR Chest 1 View (05/15/2023 2:04 [...] signing this report, I, the attending physician, attestthat I have personally reviewed the images/data for the aboveexamination(s) and agree with the final edited report. Drafted by Giovanna Richards DO on 05/15/2023 9:18 AM Final report signed by Azucena Copeland MD on 05/15/2023 9:56 AM us Won Santos MD IMG XR PROCEDURES Final [...] constipation Unspecified constipation Muscular dystrophy, Duchenne (CMS/HCC) Chronic idiopathic constipation Unspecified constipation documented in this encounter Admitting Diagnoses Diagnosis Chronic idiopathic constipation Unspecified constipation Muscular dystrophy, Duchenne (CMS/HCC) documented in this encounter Administered Medications Inactive Administered Medications - up to 3 most recent administrations Medication Order MAR Action Action Date Dose Rate Site acetaminophen (Tylenol) tablet 650 mg 650 mg, [...] Given 05/15/2023 8:55 AM EDT 10 mg furosemide (Lasix) tablet 20 mg 20 mg, [...] Given 05/16/2023 4:36 PM EDT 625 mg lidocaine (Lidoderm) 5 % patch 1 patch [...] PRN, Starting on Fri05/14/23 at 1559, Until Fri05/17/23 at 1809, Routine, Recovery(Phase II-Outpatient)/On Unit(Inpatient), moderate [...] Given 05/15/2023 9:33 PM EDT 1 tablet documented in this encounter Active and Recently [...] - Provider: Radha Suarez)0908 (Given - Provider: Geenva Armas)1600 (Canceled Entry - Provider: Automatic Discharge [...] Geneva Armas)2122 (Given - Provider: Radha Suarez) 0908 (Given [...] Provider: Geneva Armas - Reason: Patient/family refused) 09 (Not Given - Provider: Geneva Armas - [...] Nasal, Daily, 5 doses, First dose on [place] 05/15/23 at 0900, Last dose on 05/19/23 at 0900, Routine 0857 (Given - Provider: Geneva Armas) 0918 (Given - Provider: Geneva Armas) 0909 (Given - Provider: Geneva Armas) sacubitril-valsartan (Entresto) 49-51 MG per tablet 1 tablet 1 tablet, Per G Tube, 2 times daily, First dose on Fri05/14/23 at 2100, Until Discontinued, Routine, Recovery(Phase II-Outpatient)/On Unit(Inpatient) 09 (Given - Provider: Geneva Armas)2133 (Given - Provider: Radha Suarez) 1018 (Not Given - Provider: Geneva Armas - Reason: Hold for condition: must add comment - Comment: LOW BP)2135 (Given - Provider: Radha Suarez) 0936 (Given - Provider: Geneva Armas) PRN Medication Order 05/15/2023 05/16/2023 05/17/2023 oxyCODONE (Roxicodone) immediate release tablet 5 mg 5 mg, Oral, Every 4 hours PRN, Starting on Fri05/14/23 at 1559, Until 05/17/23 at 1809, Routine, Recovery(Phase II-Outpatient)/On Unit(Inpatient), moderate pain, severe pain 2134 (Given - Provider: Radha Suarez) sodium phosphate [...] documented as of this encounter Care Teams Wind Up Operator Relationship Specialty Start Date End Date Rhys Butts MD [address] [place] [address] PCP - General 03/02/21 documented as of this encounter
--- OUTSIDE RECORDS SUMMARY | 2024-09-29 14:25 | XMS_ITS | Encounter Summary ---
Author Organization Healthcare Address [address] [place] [address] Care Team Providers Care Eligibility And Occupancy Interviewer Name Role Phone Rhys Butts MD Primary Care Provider [phone] Reason for Visit * Reason Onset Date Comments HCN Clinical Concern/Question 06/20/2023 Encounter Details Date Type Department Care Team (Late st Contact Info) Description 06/20/2023 Telephone [facility] General Surgery [address] [place] [address] Won Santos MD [address] [place] [address] HCN Clinical Concern/Question Social History [...] drink first t eder in the morning (EYE-INDUSTRIAL SEWER) to steady your nerves or to get [...] Telephone Encounter - Kimberly Null RN - 06/20/2023 4:46 PM EDT Returned call. Supplies have been shipped. Nothing further at this time. * Telephone Encounter - Destini Zaldivar - 06/20/2023 9:02 AM EDT Clinical Concern/Question Reason for Call: patient mother calling stating that patient needs ostomy supplies, they only have two more pouch changes left. [place] is still waiting on doc signature. Fax number is: [phone] Best contact number: [phone] Optimal time of day to reach caller: [...] documented as of this encounter Care Teams Eligibility And Occupancy Interviewer Relationship Specialty Start Date End Date Rhys Butts MD [address] [place] [address] PCP - General 03/02/21 documented as of this encounter
--- OUTSIDE RECORDS SUMMARY | 2024-09-29 14:25 | XMS_ITS | Encounter Summary ---
Author Organization Healthcare Address [address] [place] [address] Care Team Providers Care Spot Checker Name Role Phone Rhys Butts MD Primary Care Provider [phone] Encounter Details Date Type Department Care Team (Late st Contact Info) Description 05/09/[address] [facility] General Surgery [address] [place] [address] Kimberly Null, [facility] Social History Tobacco Use Types Packs/Day [...] documented as of this encounter Care Teams Spot Checker Relationship Specialty Start Date End Date Rhys Butts MD [address] [place] [address] PCP - General 03/02/21 documented as of this encounter
--- OUTSIDE RECORDS SUMMARY | 2024-09-29 14:25 | XMS_ITS | Encounter Summary ---
Author Organization Healthcare Address [address] [place] [address] Care Team Providers Care Small Business Banking Officer Name Role Phone Rhys Butts MD Primary Care Provider [phone] Reason for Referral * Consultation (Routine) - Closed Specialty Diagnoses / Procedures Referred By Contac t Referred To Contact Nutrition Diagnoses Duchenne's muscular dystrophy (CMS/HCC) Gastroparesis Encounter for care related to feeding tube [facility] [address] [place] [address] Phone: tel: fax: [facility] [address], [address] [place] [address] Phone: tel: fax: Referral ID Status Reason Start Date Expiration Date V isits Requested Visits Authorized [id number] Closed Specialty Services Required 11/05/2023 05/06/2025 1 1 Scheduling Instructions Please refer to Shea in GI clinic. Reason for Visit * Reason Comments Constipation Follow-up Encounter Details Date Type Department Care Team (Late st Contact Info) Description 11/05/2023 2:40 PM EST Office Visit [facility] [address] [place] [address] Dane Gabriel PA [address] [place] [address] Hyperglycemia (Primary Dx); Duchenne's muscular dystrophy (CMS/HCC); Ventilator dependence (CMS/HCC); Gastroparesis; Encounter for care related to [...] drink first t eder in the morning (EYE-JANITORIAL ACCOUNT MANAGER) to steady your nerves or to get [...] Sign Reading Time Taken Comments Blood Pressure 78/59 11/05/2023 2:29 PM EST pro vider aware Pulse 93 11/05/2023 2:29 PM EST Temperature - - Respiratory Rate - - Oxygen Saturation 98% 11/05/2023 2:29 PM EST Inhaled Oxygen Concentration - - Weight 40.8 kg (90 lb) 11/05/2023 2:29 PM EST Height 154.9 cm (5' 1 ) 11/05/2023 2:29 PM EST Body Mass Index 17.01 11/05/2023 2:29 PM EST documented in this encounter Miscellaneous Notes * Addendum Note - Vibha Mott, RN - 11/05/2023 2:40 PM ESTAddended by: VIBHA MOTT on: 11/17/2023 02:25 PM Modules accepted: Orders * Progress Notes - Dane Gabriel - 11/05/2023 2:40 PM EST Telehealth Visit Subjective Patient ID: Austin Prieto is a 28 y.o. male. Chief Complaint Patient presents with Constipation Follow-up Mr. 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 Since the last visit she reports that they have completely discontinued all laxative medications as they did not seem to be helping with effective evacuation. Linaclotide just seemed to cause more frequent liquid bowel movements with solid stool leftbehind requiring regular digital disimpaction. Mr. Prieto reports recent loss of sensation of rectal fullness or impending need to evacuate bowels. He has also recently lost ability to sense when he has experienced incontinence. As a result, his mother reports that she has been pursuing a regimen of i ntermittent digital disimpaction and enema usage every few days to clear his bowels. This seems to help with overall abdominal bloating. They deny any weight loss, vomiting, gross GI bleeding or mental status change. Mr. Prieto is a 28 year old male seen in follow up today for chronic reflux, constipation and gastroparesis secondary to muscular dystrophy. For complete HPI from last visit please see above paragraph. Since the last visit he underwent elective colostomy with [facility] on 05/14. Discharged on 05/17. He [...] months. They continue to feed nutren 2.0 @ 45-50 ml/hr. She is feeding a total offour 250 ml cans daily. Abdominal Pain This is a recurrent problem. The current episode started more than 1 year ago. The onset quality isgradual. The problem occurs rarely. The most recent episode lasted 2 hours. The problem has been rapidly improving. The pain is located in the suprapubic region. The pain is at a severity of 1/10. The quality of the pain is dull. The abdominal pain does not radiate. Associated symptoms include arthralgias, belching, constipation, flatus and nausea. Pertinent negatives include no anorexia, diarrhea, dysuria, fever, frequency, headaches, hematochezia, hematuria, melena, myalgias, vomiting or weight loss. The pain is relieved by Passing flatus. Prior diagnostic workup includes surgery. The following portions of the chart were reviewed this encounter and updated as appropriate: Review of Systems Constitutional: Negative for activity change, appetite change, chills, fatigue, fever, unexpected weight change and weight loss. HENT: Negative for trouble swallowing. Respiratory: Negative for shortness of breath. Cardiovascular: Negative for chest pain. Gastrointestinal: Positive for abdominal pain, constipation, flatus and nausea. Negative for anorexia, blood in stool, diarrhea, hematochezia, melena and vomiting. Genitourinary: Negative for dysuria, frequency and hematuria. Musculoskeletal: Positive for arthralgias. Negative for myalgias. Skin: Negative for color change and pallor. Neurological: Negative for seizures, syncope and headaches. Psychiatric/Behavioral: Negative for agitation, behavioral problems and confusion. Objective Physical Exam Assessment/Plan Problem List Items Addressed This Visit Respiratory Ventilator dependence ([facility]) Digestive Gastroparesis Relevant Medications omeprazole (PriLOSEC) 2 mg/mL solution Other Relevant Orders CBC Comprehensive metabolic panel Prealbumin Ambulatory referral to Nutrition Services Other Visit Diagnoses Hyperglycemia - Primary Relevant Orders Hemoglobin A1c Duchenne's muscular dystrophy ([facility]) Relevant Orders CBC Comprehensive metabolic panel Prealbumin Ambulatory referral to Nutrition Services Encounter for care related to feeding tube Relevant Orders Ambulatory referral to Nutrition Services Chronic constipation: As detailed above, and in previous clinic notes, Mr. Prieto was struggling withprogressively worsening stool retention/severe constipation over the last several months resulting in dependence on regular digital disimpaction/enemas which were diminishing in their efficacy over time. We arranged for referral to colorectal at the last visit to consider colostomy placement secondary to progressive GI transit delay likely related to progressive nature of Duchenne's muscular dystrophy. Mr. Prieto underwent elective colostomy with colorectal on 05/14. Discharged on 05/17. He reports that he has been feeling well since then. Output from the ostomy is steady without any gross GI bleeding. GERD: Mr. Prieto reports worsening reflux issues over the last few months. His mother has struggled dissolving omeprazole capsule contents in water for administration through his PEG. We will transition over to liquid formulation of omeprazole to ease difficulty of med administration. Planned follow up in 6 months to reassess. Weight gain: Austin reports weight gain of 5 pounds in the last few months. Review of previous labs confirms some recent hyperglycemia. We will check hgba1c locally in the coming days. I have arranged for nutrition evaluation here at [facility] in the coming days to assess appropriateness of current feeding regimen. They continue to feed nutren 2.0 @ 45-50 ml/hr for a total of four 250 ml cans daily. Telehealth Statement Patient Verification Patient identity has been confirmed using name and date of ? Yes Authorizations and Agreements/Telemedicine Consent sent and consent confirmed? Yes Patient Location: Patient's Home Patient confirms they are physically located in [place]? Yes If the patient is not physically located in [place], the provider has confirmed with Legal thatthe provider is authorized to provide services in patient's stated location? Yes Provider Location: HealthCare Facility Audio and video or audio only? Audio and video Total visit time: 20 minutes documented in this encounter Plan of Treatment Scheduled Orders Name Type Priority Associated Diagnoses Orde r Schedule CBC Lab Routine Duchenne's muscular dystrophy (CMS/HCC) Gastroparesis Expected: 11/05/2023 (Approximate), Expires: 05/05/2025 Comprehensive metabolic panel Lab Routine Duchenne's muscular dystrophy (CMS/HCC) Gastroparesis Expected: 11/05/2023 (Approximate), Expires: 05/05/2025 Prealbumin Lab Routine Duchenne's muscular dystrophy (CMS/HCC) Gastroparesis Expected: 11/05/2023 (Approximate), Expires: 05/05/2025 Scheduled Referrals Name Type Priority Associated Diagnoses Order Schedule Ambulatory referral to Nutrition Services Outpatient Referral Routine Duchenne's muscular dystrophy (CMS/HCC) Gastroparesis Encounter for care related to feeding tube 1 Occurrences starting 11/05/2023 until 05/05/2025 documented as of this encounter Results * Hemoglobin A1c (11/17/2023 2:26 PM EST) Blood Venous blood specimen / Unknown us Dane JONES LAB BLOOD ORDERABLES Final Re sult EXTERNAL LAB documented in this encounter Visit Diagnoses Diagnosis Hyperglycemia- Primary Other abnormal glucose Duchenne's muscular dystrophy (CMS/HCC) Hereditary progressive muscular dystrophy Ventilator dependence (CMS/HCC) Dependence on respirator, status Gastroparesis Encounter for care related to feeding tube documented in this encounter Additional Health Concerns Assessment Noted Time A fall risk assessment has been complete d for the patient 11/05/2023 2:34 PM EST A Body Mass Index follow-up plan has been documented for the patient 11/07/2023 1:10 PM EST documented as of this encounter Care Teams Small Business Banking Officer Relationship Specialty Start Date End Date Rhys Butts MD [address] [place] [address] PCP - General 03/02/21 documented as of this encounter
--- OUTSIDE RECORDS SUMMARY | 2024-09-29 14:25 | XMS_ITS | Encounter Summary ---
Author Organization Healthcare Address [address] [place] [address] Care Team Providers Care Corporate Strategy Associate Name Role Phone Rhys Butts MD Primary Care Provider [phone] Encounter Details Date Type Department Care Team (Late st Contact Info) Description 03/25/2023 12:45 PM EDT Office Visit [facility] [address], [address] [place] [id number] Preop testing Social History Tobacco Use Types Packs/Day Years [...] Procedure Name Priority Date/Time Associated Diagnosis Comments ECG ADULT Routine 03/25/2023 1:02 PM EDT Preop testing documented in this encounter Results * ECG Adult (Performed in Heart Station) (03/25/2023 1:02 PM EDT) EKG DIAGNOSIS CLASS Abnormal MUSE ECG Ventricular Rate 61 BPM MUSE ECG Atrial Rate 61 BPM MUSE ECG OK Interval 118 ms MUSE ECG QRSD Interval 142 ms MUSE ECG QT Interval 436 ms MUSE ECG QTC Interval 438 ms MUSE ECG P Galva -1 degrees MUSE ECG R Galva 102 degrees MUSE ECG T Wave Galva 34 degrees MUSE ECG Diagnosis Normal sinus rhythm MUSE ECG Diagnosis with sinus arrhythmia MUSE ECG Diagnosis prominent voltage MUSE ECG Diagnosis Right bundle branch block MUSE ECG Diagnosis Lateral infarct MUSE ECG Diagnosis , age undetermined MUSE ECG Diagnosis Abnormal ECG MUSE ECG Diagnosis Confirmed by Jo Ann Yi ([id number]) on 03/28/2023 5:57:14 AM MUSE ECG 03/25/2023 1:02 PM EDT 03/28/2023 5:57 AM EDT us Miryam JONES ECG ORDERABLES Final Resu lt MUSE ECG documented in this encounter Visit Diagnoses Diagnosis Preop testing Unspecified pre-operative examination documented in this encounter Additional Health Concerns Assessment Noted Time A fall risk assessment has been complete d for the patient 03/25/2023 2:12 PM EDT documented as of this encounter Care Teams Corporate Strategy Associate Relationship Specialty Start Date End Date Rhys Butts MD [address] [place] [address] PCP - General 03/02/21 documented as of this encounter
--- OUTSIDE RECORDS SUMMARY | 2024-09-29 14:25 | XMS_ITS | Encounter Summary ---
Author Organization Healthcare Address [address] [place], [place] [id number] Care Team Providers Care Him Manager Name Role Phone Rhys Butts MD Primary Care Provider [phone] Encounter Details Date Type Department Care Team (Latest Contact Info) Description 05/14/2023 Travel Social History Tobacco Use Types Packs/Day [...] drink first t eder in the morning (EYE-LOCKSMITH APPRENTICE) to steady your nerves or to get [...] documented as of this encounter Care Teams Him Manager Relationship Specialty Start Date End Date Rhys Butts MD [address] [place] [address] PCP - General 03/02/21 documented as of this encounter
--- OUTSIDE RECORDS SUMMARY | 2024-09-29 14:25 | XMS_ITS | Encounter Summary ---
Author Organization Healthcare Address [address] [id number] Care Team Providers Care Database Architect Name Role Phone Rhys Butts MD Primary Care Provider [phone] Reason for Visit * Reason Onset Date Comments HCN Clinical Concern/Question 04/04/2023 Encounter Details Date Type Department Care Team ([facility] st Contact Info) Description 04/04/2023 Telephone [facility] SCHEDULING [address] [place] [address] Won Santos MD [address] [facility] [address] [place] [address] HCN Clinical Concern/Question Social History Tobacco Use [...] encounter Miscellaneous Notes * Telephone Encounter - Ximena Torre - 04/04/2023 9:19 AM EDT Clinical Concern/Question Reason for Call: Patients mom is calling to see when patient will be having surgery for colostomy. States they have already got clearance from Pulmonology and Cardiology. Please call mom to discuss. Best contact number: Other: [phone] Optimal time of day to reach caller: [...] documented as of this encounter Care Teams Database Architect Relationship Specialty Start Date End Date Rhys Butts MD [address] [place] [address] PCP - General 03/02/21 documented as of this encounter
--- OUTSIDE RECORDS SUMMARY | 2024-09-29 14:25 | XMS_ITS | Encounter Summary ---
Author Organization Healthcare Address [address] [id number] Care Team Providers Care Manager Corporate Communications Name Role Phone Rhys Butts MD Primary Care Provider [phone] Reason for Visit * Reason Onset Date Comments HCN Clinical Concern/Question 05/09/2023 Encounter Details Date Type Department Care Team (Late st Contact Info) Description 05/09/2023 Telephone [facility] General Surgery [address], [address] [place] [address] Won Santos MD [address] [facility] [address] [place] [address] HCN Clinical Concern/Question Social History [...] Telephone Encounter - Kimberly Null RN - 05/09/2023 10:38 AM EDT Returned call to patient's mother. Explained that Dr. Santos does not want patient to do bowel prep prior to surgery. Doesn't think he would tolerate. Does need antibiotics the day before surgery and Hibiclens antibacterial wash the night prior and morning of. Mother voiced understanding. * Telephone Encounter - Destini Zaldivar - 05/09/2023 8:38 AM EDT Clinical Concern/Question Reason for Call: patient mother is calling asking about bowel prep for upcoming sx. Please call at listed number. She is hoping for a call today. Best contact number: [phone] Optimal time of day to reach caller: ANYTIME Additional comments/information from caller: None Note: Please do not reply to this message. Follow-up communication and further actions as a result of this message need to be communicated with the patient directly, if the patient is not active onMyChart. If the patient is active on MyChart, they will receive notification of the communication/outcome via [employer]. documented in this encounter Plan of Treatment Not on file documented as of this encounter Visit Diagnoses Not on filedocumented in this encounter Additional Health Concerns Assessment Noted Time A fall risk assessment has been complete d for the patient 03/25/2023 2:12 PM EDT documented as of this encounter Care Teams Manager Corporate Communications Relationship Specialty Start Date End Date Rhys Butts MD [address] [place] [address] PCP - General 03/02/21 documented as of this encounter
--- OUTSIDE RECORDS SUMMARY | 2024-09-29 14:25 | XMS_ITS | Encounter Summary ---
Author Organization Healthcare Address [address] [place] [address] Care Team Providers Care Igniter Capper Name Role Phone Rhys Butts MD Primary Care Provider [phone] Encounter Details Date Type Department Care Team (Late st Contact Info) Description 07/30/2023 Telephone [facility]ties [address], [address] [place] [address] Melvin Dias, RN MEDICINE SPECIAL[facility]IES CLINIC Social History Tobacco Use [...] drink first t eder in the morning (EYE-INLAYER) to steady your nerves or to get [...] encounter Miscellaneous Notes * Telephone Encounter - Vibha Mott RN - 08/08/2023 10:31 AM EDT Orders signed and faxed back to [facility] ([employer]) at [phone]. Copy uploaded into patient'schart and mom updated * Telephone Encounter - Melvin Dias RN - 07/30/2023 11:10 AM EDT Needs orders signed -will fax to [phone] Please call Rosemarie with any questions documented in this encounter Plan of Treatment Not on file documented as of this encounter Visit Diagnoses Not on filedocumented in this encounter Additional Health Concerns Assessment Noted Time A fall risk assessment has been complete d for the patient 06/03/2023 1:27 PM EDT documented as of this encounter Care Teams Igniter Capper Relationship Specialty Start Date End Date Rhys Butts MD [facility] [place] [address] PCP - General 03/02/21 documented as of this encounter
--- OUTSIDE RECORDS SUMMARY | 2024-09-29 14:26 | XMS_ITS | Encounter Summary ---
Author Organization Healthcare Address [address] [place] [address] Care Team Providers Care Placement Interviewer Name Role Phone Unavailable Primary Care Provider Unavailabl e Encounter Details Date Type Department Care Team ([facility] st Contact Info) Description 07/27/2015 Legacy AEHR Vitals Encounter [facility] OUTPATIENT CONVERSIONS [address] [place] [address] Provider, MD Dat [address] [place] [address] Social History Tobacco Use Types Packs/Day Years [...] - Inhaled Oxygen Concentration - - Weight 39 kg (86 lb) 07/27/2015 12:32 PM EDT Height - - Body Mass Index 16.25 07/14/2015 10:28 AM EDT documented in this encounter Plan of Treatment Not on file documented as of this encounter Visit Diagnoses Not on filedocumented in this encounter
--- OUTSIDE RECORDS SUMMARY | 2024-09-29 14:26 | XMS_ITS | Encounter Summary ---
Author Organization Healthcare Address [address] [place] [address] Care Team Providers Care Tool And Equipment Rental Clerk Name Role Phone Rhys Butts MD Primary Care Provider [phone] Encounter Details Date Type Department Care Team (Late st Contact Info) Description 12/27/2021 Telephone [facility] [address], [address] [place] [address] Vibha Mott, RN MEDICINE SPECIALTIES CLINIC Social History Tobacco Use Types Packs/Day Years Used Date Smoking Tobacco: Never Smokeless Tobacco: Never Alcohol Use Standard Drinks/Week Comments No 0 (1 standard drink = 0.6 oz pur e alcohol) PHQ-2 Answer Date Recorded Patient Health Questionnaire-2 Score 0 12/26/2021 Sex and Gender Information Value Date Recorded Sex Assigned at Not on file Legal Sex Male 7:07 PM EDT Gender Identity Not on file Sexual Orientation Not on file COVID-19 Exposure Response Date Recorded In the last month, have you been in contact with someone who was confirmed or suspected to have Coronavirus / COVID-19? No / Unsure 12/26/2021 2:47 PM EST documented as of this encounter Miscellaneous Notes * Telephone Encounter - Michelle Puentes RN - 12/28/2021 8:22 AM EST Per [place] Medicaid they want Esomeprazole Mag Pkts changed tp Brand Name Nexium 40mg. There is no begin or End date listed. I will let Dane know. * Telephone Encounter - Vibha Mott RN - 12/27/2021 10:55 AM EST PA request received for Esomeprazole Packets started through [facility] [place] [id number] documented in this encounter Plan of Treatment Not on file documented as of this encounter Visit Diagnoses Not on filedocumented in this encounter Additional Health Concerns Assessment Noted Time A fall risk assessment has been complete d for the patient 12/26/2021 2:58 PM EST documented as of this encounter Care Teams Tool And Equipment Rental Clerk Relationship Specialty Start Date End Date Rhys Butts MD [address] [place] [address] PCP - General 03/02/21 documented as of this encounter
--- OUTSIDE RECORDS SUMMARY | 2024-09-29 14:26 | XMS_ITS | Encounter Summary ---
Author Organization Healthcare Address [address] [place] [address] Care Team Providers Care Emergency Management Specialist Name Role Phone Unavailable Primary Care Provider Unavailabl e Encounter Details Date Type Department Care Team ([facility] st Contact Info) Description 07/12/2015 Legacy AEHR Vitals Encounter [facility] OUTPATIENT CONVERSIONS [address] [place] [address] Provider, MD Dat [address] [place] [address] Social History Tobacco Use Types Packs/Day [...] - Inhaled Oxygen Concentration - - Weight 39.5 kg (86 lb 15.9 oz) 07/12/2015 2:10 P M EDT Height 154.9 cm (5' 1 ) 07/12/2015 2:10 PM EDT Body Mass Index 16.44 07/12/2015 2:10 PM EDT documented in this encounter Plan of Treatment Not on file documented as of this encounter Visit Diagnoses Not on filedocumented in this encounter
--- OUTSIDE RECORDS SUMMARY | 2024-09-29 14:26 | XMS_ITS | Encounter Summary ---
Author Organization Healthcare Address [address] [place] [address] Care Team Providers Care Circular Sawyer Helper Name Role Phone Rhys Butts MD Primary Care Provider [phone] Encounter Details Date Type Department Care Team (Latest Contact Info) Description 12/18/2022 Travel Social History Tobacco Use Types Packs/Day Years Used Date Smoking Tobacco: Never Passive Smoke Exposure: Never Smokeless Tobacco: Never Alcohol Use Standard Drinks/Week Comments No 0 (1 standard drink = 0.6 oz pur e alcohol) PHQ-2 Answer Date Recorded Patient Health Questionnaire-2 Score 0 12/18/2022 Sex and Gender Information Value Date Recorded Sex Assigned at Not on file Legal Sex Male 7:07 PM EDT Gender Identity Not on file Sexual Orientation Not on file COVID-19 Exposure Response Date Recorded In the last 10 days, have yo u been in contact with someone who was confirmed or suspected to have Coronavirus/COVID-19? No / Unsure 12/18/2022 12:29 PM EST documented as of this encounter Plan of Treatment Not on file documented as of this encounter Visit Diagnoses Not on filedocumented in this encounter Additional Health Concerns Assessment Noted Time A fall risk assessment has been complete d for the patient 12/18/2022 12:57 PM EST documented as of this encounter Care Teams Circular Sawyer Helper Relationship Specialty Start Date End Date Rhys Butts MD [address] [place] [address] PCP - General 03/02/21 documented as of this encounter
--- OUTSIDE RECORDS SUMMARY | 2024-09-29 14:26 | XMS_ITS | Encounter Summary ---
Author Organization Healthcare Address [address] [place] [address] Care Team Providers Care Insurance Marketing Specialist Name Role Phone Unavailable Primary Care Provider Unavailabl e Encounter Details Date Type Department Care Team ([facility] st Contact Info) Description 10/08/2017 Legacy AEHR Vitals Encounter [facility] OUTPATIENT CONVERSIONS [address] [place] [address] Provider, MD Dat [address] [place] [address] Social History Tobacco Use Types Packs/Day [...] Oxygen Concentration - - Weight 40.8 kg (89 lb 15.9 oz) 10/08/2017 10:34 AM EST Height 154.9 cm (5' 1 ) 10/08/2017 10:34 AM EST Body Mass Index 17 10/08/2017 10:34 AM EST documented in this encounter Plan of Treatment Not on file documented as of this encounter Visit Diagnoses Not on filedocumented in this encounter
--- OUTSIDE RECORDS SUMMARY | 2024-09-29 14:26 | XMS_ITS | Encounter Summary ---
Author Organization Healthcare Address [address] [place] [address] Care Team Providers Care Machinist Bench Name Role Phone Rhys Butts MD Primary Care Provider [phone] Encounter Details Date Type Department Care Team (Late st Contact Info) Description 09/11/2021 Telephone [facility] [address] [place] [id number] Michelle Puentes, [facility] Social History Tobacco Use Types Packs/Day Years Used Date Smoking Tobacco: Never Smokeless Tobacco: Never Alcohol Use Standard Drinks/Week Comments No 0 (1 standard drink = 0.6 oz pur e alcohol) PHQ-2 Answer Date Recorded Patient Health Questionnaire-2 Score 0 08/23/2021 Sex and Gender Information Value Date Recorded Sex Assigned at Not on file Legal Sex Male 7:07 PM EDT Gender Identity Not on file Sexual Orientation Not on file COVID-19 Exposure Response Date Recorded In the last month, have you been in contact with someone who was confirmed or suspected to have Coronavirus / COVID-19? Yes 08/22/2021 1:13 PM EDT documented as of this encounter Miscellaneous Notes * Telephone Encounter - Vibha Mott RN - 09/25/2021 12:11 PM EST Forwarded most recent records from [facility], only labs no recent ED visits * Telephone Encounter - Vibha Mott RN - 09/24/2021 12:04 PM EST Requested records 09/21 haven't received them yet * Telephone Encounter - Dane Gabriel PA - 09/12/2021 1:12 PM EST Hey, I spoke with Austin's mother. He is continuing to experience nightly hallucinations. Workup with PCP has been unremarkable. They started him on seroquel and gave him a 5 day course of levaquin with no improvement in her symptoms. I instructed her to go to the ED for further evaluation. I offered [facility] or [facility] but she preferred to go to [facility] in [place] as that was closer and Austin's neurologist rounds there. I gave her my email address and she will keep me updated on the outcome. When you get a chance early next week, can we call and get records from [facility]? Dane Olvera * Telephone Encounter - Michelle Puentes RN - 09/11/2021 8:33 PM EST Mom called today to saw last Fri pt started having dizziness, Thurs started having Hallucinations. Fri took him to PCP thought he had a UTI. Put him on antibiotic and an a antipsychotic med. Yest when she was venting his tube states coffee ground liquid came out. States hes had gastritis in past. His PCP put him on Carafate. He did not have a UTI. Is there anything you need to do * Telephone Encounter - Michelle Puentes RN - 09/11/2021 4:03 PM EST Dane Mom calling last Fri, om t documented in this encounter Plan of Treatment Not on file documented as of this encounter Visit Diagnoses Not on filedocumented in this encounter Additional Health Concerns Assessment Noted Time A fall risk assessment has been complete d for the patient 08/23/2021 3:23 PM EDT documented as of this encounter Care Teams Machinist Bench Relationship Specialty Start Date End Date Rhys Butts MD [address] [place] [address] PCP - General 03/02/21 documented as of this encounter
--- OUTSIDE RECORDS SUMMARY | 2024-09-29 14:26 | XMS_ITS | Encounter Summary ---
Author Organization Healthcare Address [address] [place] [address] Care Team Providers Care Director Operations Broadcast Name Role Phone Rhys Butts MD Primary Care Provider Reason for Visit * Reason Comments Consult Chronic Constipation * Consultation (Routine) - Closed Specialty Diagnoses / Procedures Referred By Contac t Referred To Contact Colon and Rectal Surgery Diagnoses Chronic constipation Duchenne's muscular dystrophy (CMS/HCC) [facility] Medicine Specialties [address], [address] [place] [address] Phone: tel: fax: [facility] [address] [place] [address] Phone: tel: Referral ID Status Reason Start Date Expiration Date V isits Requested Visits Authorized [id number] Closed Specialty Services Required 01/07/2023 07/08/2024 1 1 Encounter Details Date Type Department Care Team (Late st Contact Info) Description 02/25/2023 1:00 PM EDT Consult [facility] General Surgery [address], [address] [place] [address] Won Santos MD [address] [place] [address] Chronic constipation; Duchenne's muscular dystrophy (CMS/HCC) Social History Tobacco Use Types Packs/Day Years Used Date Smoking Tobacco: Never Passive Smoke Exposure: Never Smokeless Tobacco: Never Alcohol Use Standard Drinks/Week Comments No 0 (1 standard drink = 0.6 oz pur e alcohol) PHQ-2 Answer Date Recorded Patient Health Questionnaire-2 Score 0 02/25/2023 Sex and Gender Information Value Date Recorded Sex Assigned at Not on file Legal Sex Male 7:07 PM EDT Gender Identity Not on file Sexual Orientation Not on file documented as of this encounter Last Filed Vital Signs Vital Sign Reading Time Taken Comments Blood Pressure 99/67 02/25/2023 12:30 PM EDT Pulse 60 02/25/2023 12:30 PM EDT Temperature 36.6 ??C (97.8 ??F) 02/25/2023 12:30 PM E DT Respiratory Rate - - Oxygen Saturation - - Inhaled Oxygen Concentration - - Weight 40.8 kg (90 lb) 02/25/2023 12:30 PM EDT Height 157.5 cm (5' 2.01 ) 02/25/2023 12:30 PM E DT Body Mass Index 16.46 02/25/2023 12:30 PM EDT documented in this encounter Miscellaneous Notes * Progress Notes - Emilee Guzman - 02/25/2023 1:00 PM EDT Chief Complaint: Chief Complaint Patient presents with Consult Chronic Constipation HPI: Mr. Austin Prieto is a 27 y.o. male PMH duchenne's muscular dystrophy, chronic respiratory failurewith ventilator dependence, heart failure with last EF 49%, s/p G tube placement. Is an establishedpatient with GI who is referred to our clinic by Dane chilel for evaluation of chronic constipation. Mr. Prieto reports that he has had to manually remove stool for 1 year, has been having fecal incon tinence. -Mr. Prieto has an extensive workup with gastroenterology. Has tried multiple medical treatments for constipation including Linzess, Reglan, Colace, Senna, ect. These treatments offer no improvement for Mr. Prieto- he typically has worsening of bloating, gas pain on these medications. -Has incontinence all day/all night. Typically multiple times per day. Mostly at night around tube feeds. Stools are typically liquid. When mother disimpacts stool sometimes having some solid stool passage. No blood in stool. He is using briefs, has been using them for the last year. Is also using a urinal. Is not incontinent with urination, only defecation. -No perianal lesions noted. No fevers/chills/blood in the stools. -CT in the ER appx a year ago, has had a couple of xrays showing dilation of colon to 11cm with signs of fecal impaction. Patient also follows with cardiology for heart failure with reduced ejection fraction. His last ECHO showed an LVEF of 35-45%, this has improved since then, patient's ejection fraction is currently 49 percent per the last ECHO. -No colonoscopy to date -No tobacco use reported Treatment has included manual fecal disimpaction, pro-motility agents, fiber supplementation, fleetenemas . Primary Care Physician: Rhys Butts MD Past [...] GASTROSTOMY TUBE PLACEMENT N/A Feeding Tube from [employer] SPINAL [employer]USION TYMPANOSTOMY TUBE PLACEMENT N/A Ear Pressure Equalization Tube, Insertion, Bilaterally from [employer] Current Outpatient Medications Medication Instructions baclofen (LIORESAL) 10 mg, Oral, 3 times daily bisoprolol (ZEBETA) 5 mg, Oral, Daily erythromycin ethylsuccinate (EES) 200 MG/5ML suspension No dose, route, or frequency recorded. escitalopram (LEXAPRO) 10 mg, Oral, Daily furosemide (LASIX) 20 mg, Oral, Daily gabapentin (Neurontin) 250 MG/5ML solution Take 12.5mL 3 times Daily HYDROcodone-acetaminophen (Wilton) 5-325 MG tablet TAKE 1 TABLET BY MOUTH EVERY 8 HOURS CRUSED THROUGH GIVE-TUBE hydrocortisone 2.5 % ointment 1 application., Topical, [...] nausea and rectal pain. Visit Vitals BP 99/67 (BP Location: Right arm, Patient Position: Sitting) Pulse 60 Temp 36.6 ??C (97.8 ??F) Ht 1.575 m (5' 2.01 ) Wt 40.8 kg (90 lb) BMI [...] s/p G tube placement who is presenting on consultation from GI for constipation. Based on the clinical picture of fecal impaction with incontinence, overflow incontinence was of high suspicion. Patient's imaging studies were reviewed showing large compaction of stool with stretching of the colon. Our plan includes the following: Discussed the risks and benefits of colostomy placement surgery including interoperative and postoperative risks/postoperative risks. These were weighed with quality of life improvements and reduction of burden from patient's incontinence. At baseline, Mr. Prieto has numerous comorbidities including r espiratory and heart failure. Will schedule the patient an appointment to meet with anesthesiology to determine whether he is a candidate for surgical intervention based upon his viability to undergogeneral anaesthesia. Will have patient schedule a follow-up appointment in this clinic to discuss plans for colostomy placement. No problem-specific Assessment & Plan notes found for this encounter. Cosigned by Won Santos MD at 03/05/2023 3:38 PM EDT Associated attestation - Won Santos MD - 03/05/2023 3:38 PM EDT I saw and evaluated the patient with the medical/JAR CAPPER/PA student. I discussed the case with the medical/JAR CAPPER/PA student and agree with the findings and plan as documented. I personally performed the Examand Medical Decision Making. Mr. Prieto is a 27-year-old male with chronic constipation with underlying Duchenne's muscular dystrophy and chronic respiratory failure requiring ventilator dependence. Manual disimpaction required. Overflow incontinence suspected. Multiple modifications of bowel regimen have been tried with no long- lasting positive affect. Dilated colon noted on CT imaging. Colostomy creation considered yet high perioperative risk has been discussed including chronic respiratory failure and heart failure. Patient will need anesthesia evaluation to determine whether not he can stand general anesthesia for colostomy creation. Return to clinic after that time to discuss colostomy placement. PLAN FOLLOWS: Schedule Pre-Op Anesthesia evaluation in consideration of possible ostomy creation. documented in this encounter Plan of Treatment Not on file documented as of this encounter Visit Diagnoses Diagnosis Chronic constipation Unspecified constipation Duchenne's muscular dystrophy (CMS/HCC) Hereditary progressive muscular dystrophy documented in this encounter Additional Health Concerns Assessment Noted Time A fall risk assessment has been complete d for the patient 02/25/2023 12:34 PM EDT documented as of this encounter Care Teams Director Operations Broadcast Relationship Specialty Start Date End Date Rhys Butts MD [address] [place] [address] PCP - General 03/02/21 documented as of this encounter
--- OUTSIDE RECORDS SUMMARY | 2024-09-29 14:26 | XMS_ITS | Encounter Summary ---
Author Organization Healthcare Address [address] [place] [address] Care Team Providers Care Screw Supervisor Name Role Phone Unavailable Primary Care Provider Unavailabl e Encounter Details Date Type Department Care Team ([facility] st Contact Info) Description 07/29/2016 Legacy AEHR Vitals Encounter [facility] OUTPATIENT CONVERSIONS [address] [place] [address] Provider, MD Dat [address] [place] [address] Social History Tobacco Use Types Packs/Day [...] Oxygen Concentration - - Weight 39.5 kg (87 lb 1.3 oz) 07/29/2016 9:35 AM EDT Height 154.9 cm (5' 1 ) 07/29/2016 9:35 AM EDT Body Mass Index 16.45 07/29/2016 9:35 AM EDT documented in this encounter Plan of Treatment Not on file documented as of this encounter Visit Diagnoses Not on filedocumented in this encounter
--- OUTSIDE RECORDS SUMMARY | 2024-09-29 14:26 | XMS_ITS | Encounter Summary ---
Author Organization Healthcare Address [address] [place] [address] Care Team Providers Care Physical Biochemist Name Role Phone Rhys Butts MD Primary Care Provider [phone] Encounter Details Date Type Department Care Team (Late st Contact Info) Description 09/23/2022 Telephone [facility] Medicine Specialties [address], [address] [place] [address] Mara Douglass, RN [facility] Social History Tobacco Use Types Packs/Day Years Used Date Smoking Tobacco: Never Smokeless Tobacco: Never Alcohol Use Standard Drinks/Week Comments No 0 (1 standard drink = 0.6 oz pur e alcohol) PHQ-2 Answer Date Recorded Patient Health Questionnaire-2 Score 0 06/10/2022 Sex and Gender Information Value Date Recorded Sex Assigned at Not on file Legal Sex Male 7:07 PM EDT Gender Identity Not on file Sexual Orientation Not on file documented as of this encounter Miscellaneous Notes * Telephone Encounter - Mara Douglass, RN - 09/23/2022 11:50 AM EST Need new order for patient's trelegy vent please. Thank you. Mom is having company fax the order from the [employer] to us for Dr. Aquino to sign. documented in this encounter Plan of Treatment Not on file documented as of this encounter Visit Diagnoses Not on filedocumented in this encounter Additional Health Concerns Assessment Noted Time A fall risk assessment has been complete d for the patient 06/10/2022 12:56 PM EDT documented as of this encounter Care Teams Physical Biochemist Relationship Specialty Start Date End Date Rhys Butts MD [address] [place] [address] PCP - General 03/02/21 documented as of this encounter
--- OUTSIDE RECORDS SUMMARY | 2024-09-29 14:26 | XMS_ITS | Encounter Summary ---
Author Organization Healthcare Address [address] [place] [address] Care Team Providers Care Video Clerk Name Role Phone Unavailable Primary Care Provider Unavailabl e Encounter Details Date Type Department Care Team ([facility] st Contact Info) Description 01/08/2017 Legacy AEHR Vitals Encounter [facility] OUTPATIENT CONVERSIONS [address] [place] [address] Provider, MD Dat [address] [place] [address] Social History Tobacco Use Types Packs/Day [...] Weight 40.8 kg (89 lb 15.9 oz) 01/08/2017 3:12 P M EDT Height 154.9 cm (5' 1 ) 01/08/2017 3:12 PM EDT Body Mass Index 17 01/08/2017 3:12 PM EDT documented in this encounter Plan of Treatment Not on file documented as of this encounter Visit Diagnoses Not on filedocumented in this encounter
--- OUTSIDE RECORDS SUMMARY | 2024-09-29 14:26 | XMS_ITS | Encounter Summary ---
Author Organization Healthcare Address [address] [id number] Care Team Providers Care Neurophysiology Tech Name Role Phone Rhys Butts MD Primary Care Provider [phone] Encounter Details Date Type Department Care Team (Late st Contact Info) Description 01/10/2023 Orders Only [facility] Medicine Specialties [address] [place] [address] Dane Gabriel, KAREN [address] [place] [address] Social History Tobacco Use Types [...] documented as of this encounter Care Teams Neurophysiology Tech Relationship Specialty Start Date End Date Rhys Butts MD [address] [place] [address] PCP - General 03/02/21 documented as of this encounter
--- OUTSIDE RECORDS SUMMARY | 2024-09-29 14:26 | XMS_ITS | Encounter Summary ---
Author Organization Healthcare Address [address] [place] [address] Care Team Providers Care No Experience Name Role Phone Unavailable Primary Care Provider Unavailabl e Encounter Details Date Type Department Care Team ([facility] st Contact Info) Description 04/24/2016 Legacy AEHR Vitals Encounter [facility] OUTPATIENT CONVERSIONS [address] [place] [address] Provider, MD Dat [address] [place] [address] Social History Tobacco Use Types Packs/Day [...] Weight 39.5 kg (86 lb 15.9 oz) 04/24/2016 9:53 A M EDT Height 154.9 cm (5' 1 ) 04/24/2016 9:53 AM EDT Body Mass Index 16.44 04/24/2016 9:53 AM EDT documented in this encounter Plan of Treatment Not on file documented as of this encounter Visit Diagnoses Not on filedocumented in this encounter
--- OUTSIDE RECORDS SUMMARY | 2024-09-29 14:26 | XMS_ITS | Encounter Summary ---
Author Organization Healthcare Address [address] [place] [address] Care Team Providers Care Sustainability Coach Name Role Phone Unavailable Primary Care Provider Unavailabl e Encounter Details Date Type Department Care Team ([facility] st Contact Info) Description 03/05/2017 Legacy AEHR Vitals Encounter [facility] OUTPATIENT CONVERSIONS [address] [place] [address] Provider, MD Dat [address] [place] [address] Social History Tobacco Use Types Packs/Day [...] Weight 40.8 kg (89 lb 15.9 oz) 03/05/2017 2:06 P M EDT Height 154.9 cm (5' 1 ) 03/05/2017 2:06 PM EDT Body Mass Index 17 03/05/2017 2:06 PM EDT documented in this encounter Plan of Treatment Not on file documented as of this encounter Visit Diagnoses Not on filedocumented in this encounter
--- OUTSIDE RECORDS SUMMARY | 2024-09-29 14:26 | XMS_ITS | Encounter Summary ---
Author Organization Healthcare Address [address] [place] [address] Care Team Providers Care Checker In Name Role Phone Unavailable Primary Care Provider Unavailabl e Encounter Details Date Type Department Care Team ([facility] st Contact Info) Description 07/31/2015 Legacy AEHR Vitals Encounter [facility] OUTPATIENT CONVERSIONS [address] [place] [address] Provider, MD Dat [address] [place] [address] Social History Tobacco Use Types Packs/Day [...] - - Weight 39 kg (86 lb) 07/31/2015 8:55 AM EDT Height 154.9 cm (5' 1 ) 07/31/2015 8:55 AM EDT Body Mass Index 16.25 07/31/2015 8:55 AM EDT documented in this encounter Plan of Treatment Not on file documented as of this encounter Visit Diagnoses Not on filedocumented in this encounter
--- OUTSIDE RECORDS SUMMARY | 2024-09-29 14:26 | XMS_ITS | Encounter Summary ---
Author Organization Healthcare Address [address] [place] [address] Care Team Providers Care Salt Washer Harvesting Station Name Role Phone Rhys Butts MD Primary Care Provider [phone] Encounter Details Date Type Department Care Team (Latest Contact Info) Description 02/23/2023 Travel Social History Tobacco Use Types Packs/Day [...] documented as of this encounter Care Teams Salt [employer]her Har[employer]ing [employer] Relationship Specialty Start Date End Date Rhys Butts MD [address] [place] [address] PCP - General 03/02/21 documented as of this encounter
--- OUTSIDE RECORDS SUMMARY | 2024-09-29 14:26 | XMS_ITS | Encounter Summary ---
Author Organization Healthcare Address [address] [place] [address] Care Team Providers Care Inspector Insulation Name Role Phone Rhys Butts MD Primary Care Provider [phone] Encounter Details Date Type Department Care Team (Latest Contact Info) Description 02/25/2023 Travel Social History Tobacco Use Types Packs/Day [...] documented as of this encounter Care Teams Inspector Insulation Relationship Specialty Start Date End Date Rhys Butts MD [address] [place] [address] PCP - General 03/02/21 documented as of this encounter
--- OUTSIDE RECORDS SUMMARY | 2024-09-29 14:26 | XMS_ITS | Encounter Summary ---
Author Organization Healthcare Address [address] [place] [address] Care Team Providers Care Fws Faculty Assistant Name Role Phone Rhys Butts MD Primary Care Provider Reason for Visit * Reason Comments Follow-up Encounter Details Date Type Department Care Team (Late st Contact Info) Description 12/18/2022 12:40 PM EST Office Visit [place] [facility] [address] [place] [address] Dane Gabriel, PA [address] [place] [address] Chronic constipation (Primary Dx); Gastroesophageal reflux disease without esophagitis; Gastroparesis; Duchenne's muscular dystrophy (CMS/HCC) Social History Tobacco [...] PM EST documented as of this encounter Last Filed Vital Signs Vital Sign Reading Time Taken Comments Blood Pressure 92/65 12/18/2022 12:53 PM EST Pulse 98 12/18/2022 12:53 PM EST Temperature 36.9 ??C (98.4 ??F) 12/18/2022 12:[address] Respiratory Rate - - Oxygen Saturation - - Inhaled Oxygen Concentration - - Weight 40.8 kg (90 lb) 12/18/2022 12:53 PM EST Height 157.5 cm (5' 2 ) 12/18/2022 12:53 PM EST Body Mass Index 16.46 12/18/2022 12:53 PM EST documented in this encounter Miscellaneous Notes * Progress Notes - Dane Gabriel PA - 12/18/2022 12:40 PM EST Answers submitted by the patient for this visit: Abdominal Pain Questionnaire (Submitted on 12/18/2022) Chief Complaint: Abdominal pain Chronicity: chronic Onset: more than 1 year ago Onset quality: gradual Frequency: every several days Episode duration: 2 Days Progression since onset: waxing and waning Pain location: generalized abdominal region Pain - numeric: 6/10 Pain quality: cramping Radiates to: perineum anorexia: No arthralgias: No belching: No constipation: Yes diarrhea: Yes dysuria: No fever: No flatus: Yes frequency: No headaches: No hematochezia: No hematuria: No melena: No myalgias: No nausea: Yes weight loss: No vomiting: No Aggravated by: certain positions, eating Relieved by: bowel movements * Progress Notes - Dane Gabriel PA - 12/18/2022 12:40 PM EST Telehealth Visit Subjective Patient ID: Austin Prieto is a 27 y.o. male. Chief Complaint Patient presents with Follow-up Mr. 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 Since the last visit his mother reports that she has attempted intermittent digital disimpactions and enema. Digital disimpaction produces a large amount of stool but enema only produces liquid. Dulcolax suppositories have also been ineffective. Current regimen includes liquid stool softener and senna daily. Increased bloating is reported without vomiting. He is urinating regularly. Mr. 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 For complete Hpi from last visit please see above paragraph. Since the last visit she reports that they have completely discontinued all laxative medications as they did not seem to be helping with effective evacuation. Linaclotide just seemed to cause more frequent liquid bowel movements with solid stool left behind requiring regular digital disimpaction. Mr. Prieto reports recent loss of sensation of rectal fullness or impending need to evacuate bowels. He has also recently lost ability to sense when he has experienced incontinence. As a result, his mother reports that she has been pursuing a regimen of intermittent digital disimpaction and enema usage every few days to clear his bowels. This seems to help with overall abdominal bloating. They deny any weight loss, vomiting, gross GI bleeding or mental status change. Abdominal Pain This is a chronic problem. The current episode started more than 1 year ago. The onset quality is gradual. The problem occurs every several days. The most recent episode lasted 2 Days. The problem has been waxing and waning. The pain is located in the generalized abdominal region. The pain is at a severity of 6/10. The quality of the pain is cramping. The abdominal pain radiates to the perineum. Associated symptoms include constipation, diarrhea, flatus and nausea. Pertinent negatives include no anorexia, arthralgias, belching, dysuria, fever, frequency, headaches, hematochezia, hematuria, melena, myalgias, vomiting or weight loss. The pain is aggravated by certain positions and eating. Thepain is relieved by Bowel movements. The following portions of the chart were reviewed this encounter and updated as appropriate: Tobacco Allergies Meds Problems Med Hx Surg Hx Fam Hx Review of Systems Constitutional: Negative for activity change, appetite change, chills, fatigue, fever, unexpected weight change and weight loss. HENT: Negative for trouble swallowing. Cardiovascular: Negative for chest pain. Gastrointestinal: Positive for abdominal pain, constipation, diarrhea, flatus and nausea. Negative for anorexia, blood in stool, hematochezia, melena and vomiting. Genitourinary: Negative for dysuria, frequency and hematuria. Musculoskeletal: Negative for arthralgias and myalgias. Skin: Negative for color change and pallor. Neurological: Negative for seizures, syncope and headaches. Psychiatric/Behavioral: Negative for agitation, behavioral problems and confusion. Objective Physical Exam Vitals and nursing note reviewed. Constitutional: General: He is not in acute distress. Appearance: He is not ill-appearing or toxic-appearing. HENT: Mouth/Throat: Mouth: Mucous membranes are moist. Eyes: General: No scleral icterus. Skin: General: Skin is dry. Coloration: Skin is not jaundiced or pale. Findings: No bruising. Neurological: Mental Status: He is alert and oriented to person, place, and time. Psychiatric: Mood and Affect: Mood normal. Behavior: Behavior normal. Assessment/Plan Problem List Items Addressed This Visit Digestive Gastroparesis Relevant Medications metoclopramide (Reglan) 5 MG/5ML solution GERD (gastroesophageal reflux disease) Relevant Medications metoclopramide (Reglan) 5 MG/5ML solution Other Visit Diagnoses Chronic constipation - Primary Duchenne's muscular dystrophy (CMS/HCC) Chronic constipation: As detailed above, since the last visit Mr. Prieto reports recent loss of sensation of rectal fullness or impending need to evacuate bowels. He has also recently lost ability to sense when he has experienced incontinence. As a result, his mother reports that she has been pursuing a regimen of intermittent digital disimpaction and enema usage every few days to clear his bowels.This seems to help with overall abdominal bloating. She discontinued all laxatives as they seemed to cause more frequent watery stools without effectively evacuating. I suspect that aforementioned difficulties with constipation are likely a reflection of disease progression related to Duchennes. Wehave encouraged continued intermittent digital disimpaction along with enema usage. We have prescribed low dose 5 mg metoclopramide in the mornings to help with potentially more effective gastric emptying and overall GI transit/bowel emptying. I feel that continuation of liquid stool softener may be helpful as well. Planned follow up in 4 months to reassess. Telehealth Statement Patient Verification Patient identity has been confirmed using name and date of ? Yes Authorizations and Agreements/Telemedicine Consent sent and consent confirmed? Yes Patient Location: Patient's Home Patient confirms they are physically located in [place]? Yes If the patient is not physically located in [place], the provider has confirmed with [employer] thatthe provider is authorized to provide services in patient's stated location? Yes Provider Location: HealthCare Facility Audio and video or audio only? Audio and video Total visit time: 25 minutes documented in this encounter Plan of Treatment Not on file documented as of this encounter Visit Diagnoses Diagnosis Chronic constipation- Primary Unspecified constipation Gastroesophageal reflux disease without esophagitis Esophageal reflux Gastroparesis Duchenne's muscular dystrophy (CMS/HCC) Hereditary progressive muscular dystrophy documented in this encounter Additional Health Concerns Assessment Noted Time A fall risk assessment has been complete d for the patient 12/18/2022 12:57 PM EST documented as of this encounter Care Teams Fws Faculty Assistant Relationship Specialty Start Date End Date Rhys Butts MD [address] [place] [address] PCP - General 03/02/21 documented as of this encounter
--- OUTSIDE RECORDS SUMMARY | 2024-09-29 14:26 | XMS_ITS | Encounter Summary ---
Author Organization Healthcare Address [address] [place] [address] Care Team Providers Care Telecommunications Consultant Name Role Phone Rhys Butts MD Primary Care Provider [phone] Encounter Details Date Type Department Care Team (Late st Contact Info) Description 12/31/2022 Orders Only [place] Clinic Medicine [facility] [address] [place] [address] Dane Gabriel, PA [address] [place] [address] Chronic constipation (Primary Dx) Social [...] documented as of this encounter Care Teams Telecommunications Consultant Relationship Specialty Start Date End Date Rhys Butts MD [address] [place] [address] PCP - General 03/02/21 documented as of this encounter
--- OUTSIDE RECORDS SUMMARY | 2024-09-29 14:26 | XMS_ITS | Encounter Summary ---
Author Organization Healthcare Address [address] [place] [address] Care Team Providers Care Repairer Controller Tester Name Role Phone Rhys Butts MD Primary Care Provider [phone] Encounter Details Date Type Department Care Team (Late st Contact Info) Description 05/20/2022 Telephone [place] [facility] [address] [place] [address] Dane Gabriel PA [address] [place] [address] Social History Tobacco Use Types [...] encounter Miscellaneous Notes * Telephone Encounter - Dane Gabriel PA - 05/20/2022 12:18 PM EDT Hey, I talked with Austin's mother. She is going to try some dulcolax suppositories after his daily enema to see if that helps. She will call us with any concerns or issues. Austin has a follow up with me next week. * Telephone Encounter - Carlene Ribera - 05/20/2022 8:08 AM EDT Patient's mother called stating that while patient has an appointment with Dane on 05/28, she's wondering if there's anything he can do to alleviate symptoms of possibly having another stool ball CB: [phone] documented in this encounter Plan of Treatment Not on file documented as of this encounter Visit Diagnoses Not on filedocumented in this encounter Additional Health Concerns Assessment Noted Time A fall risk assessment has been complete d for the patient 12/26/2021 2:58 PM EST documented as of this encounter Care Teams Repairer Controller Tester Relationship Specialty Start Date End Date Rhys Butts MD [address] [place] [address] PCP - General 03/02/21 documented as of this encounter
--- OUTSIDE RECORDS SUMMARY | 2024-09-29 14:26 | XMS_ITS | Encounter Summary ---
Author Organization Healthcare Address [address] [place] [address] Care Team Providers Care Felt Cementer Name Role Phone Rhys Butts MD Primary Care Provider [phone] Encounter Details Date Type Department Care Team (Latest Contact Info) Description 12/23/2022 Travel Social History Tobacco Use Types Packs/Day [...] documented as of this encounter Care Teams Felt Cementer Relationship Specialty Start Date End Date Rhys Butts MD [address] [place] [address] PCP - General 03/02/21 documented as of this encounter
--- OUTSIDE RECORDS SUMMARY | 2024-09-29 14:26 | XMS_ITS | Encounter Summary ---
Author Organization Healthcare Address [address] [id number] Care Team Providers Care Sewing Demonstrator Name Role Phone Rhys Butts MD Primary Care Provider [phone] Reason for Visit * Reason Comments Other Former [place] [facility] Encounter Details Date Type Department Care Team (Late st Contact Info) Description 06/10/2022 1:00 PM EDT Office Visit [facility] Medicine Specialties [address] [place] [address] Christian Aquino MD [address] [place] [address] Chronic respiratory failure with hypercapnia [...] suspected to have Coronavirus/COVID-19? No / Unsure 06/10/2022 12:28 PM EDT documented as of this encounter Last Filed Vital Signs Vital Sign Reading Time Taken Comments Blood Pressure 83/59 06/10/2022 1:01 PM EDT Pulse 89 06/10/2022 1:01 PM EDT Temperature - - Respiratory Rate - - Oxygen Saturation 98% 06/10/2022 1:01 PM EDT room air Inhaled Oxygen Concentration - - Weight 40.8 kg (90 lb) 06/10/2022 1:01 PM EDT Height - - Body Mass Index 17.01 05/28/2022 1:28 PM EDT documented in this encounter Miscellaneous Notes * Progress Notes - Christian Aquino MD - 06/10/2022 1:00 PM EDT Austin Prieto is a 27 y.o. male who presents to pulmonary outpatient clinic as a new patient. Chief Complaint: muscular dystrophy HPI: 27 YO M with a history of Duchenne Muscular Dystrophy presenting for initial evaluation with me today; reportedly previously seen by Dr. Rose but no records are available for my review. He has ahistory of chronic respiratory failure 2/2 his DMD, for which he is managed with a Trilogy ventilator on AVAPS- AE mode, current settings are TV 400, pressure 15/6, back-up rate of 5, intrinsic RR around 18. Max pressure 30 cm. Currently he is using room air on the ventilator. He has been followed at [facility] in [place] by Dr. Mckeon, with last documented visits in 12/2020 at which time it appears no changes to ventilator were made and patient was discontinued on nebulized ICS and LABA. He has cough assist device as well which he is compliant with to facilitate secretion clearance. An ABG was obtained 12/2020 7.42/34/85. The patient reports that he has been doing well since last seen from a pulmonary perspective. Occasional daytime SpO2 monitoring has not demonstrated any hypoxia. He is basically 100% ventilator dependent at this point, and has been so for approximately the past year. His chair mode vent settings are AC, TV 700, Ti 1.2 Has not had any respiratory related hospitalizations for 7-8 years. Did have a pneumonia managed asan outpatient about 3-4 years ago. Answers submitted by the patient for this visit: Pulmonology Questionnaire (Submitted on 06/06/2022) Chief Complaint: Primary symptoms Chronicity: chronic When did you first notice your symptoms?: more than 1 month ago How often do your symptoms occur?: daily Since you first noticed this problem, how has it changed?: unchanged Do you have shortness of breath that occurs with effort or exertion?: Yes Do you have fatigue?: Yes Do you have nasal congestion?: Yes Do you have shortness of breath when you wake up?: Yes Do you have sweats?: Yes Which of the following makes your symptoms worse?: any activity, eating Past Medical History: Diagnosis Date Failure to [...] GASTROSTOMY TUBE PLACEMENT N/A Feeding Tube from [employer] TYMPANOSTOMY TUBE PLACEMENT N/A Ear Pressure Equalization Tube, Insertion, Bilaterally from [employer] History reviewed. No pertinent family history. Social History Socioeconomic History Marital status: Single Spouse name: Not on file Number of children: Not on file Years of education: Not on file Highest education level: Not on file Occupational History Not on file Tobacco Use Smoking status: Never Smokeless tobacco: Never Vaping Use Vaping [...] of Systems Constitutional: Negative for activity change, chills, fatigue and fever. HENT: Negative for congestion, postnasal drip, rhinorrhea and voice change. Eyes: Negative for redness and itching. Respiratory: Positive for shortness of breath. Negative for apnea, cough, chest tightness and wheezing. Cardiovascular: Negative for chest pain, palpitations and leg swelling. Endocrine: Negative for cold intolerance and heat intolerance. Musculoskeletal: Negative for arthralgias, joint swelling and myalgias. Skin: Negative for color change and rash. Allergic/Immunologic: Negative for environmental allergies and immunocompromised state. Neurological: Positive for headaches. Negative for numbness. Hematological: Negative for adenopathy. Does not bruise/bleed easily. Psychiatric/Behavioral: Negative for dysphoric mood and sleep disturbance. Objective: Physical Exam: Visit Vitals BP 83/59 Pulse 89 Wt 40.8 kg (90 lb) SpO2 98% Comment: room air BMI 17.01 kg/m?? Physical Exam Constitutional: General: He is not in acute distress. Appearance: Normal appearance. He is well-developed. He is not ill-appearing. HENT: Head: Normocephalic and atraumatic. Right Ear: External ear normal. Left Ear: External ear normal. Nose: Nose normal. Mouth/Throat: Mouth: Mucous membranes are moist. Pharynx: Oropharynx is clear. Eyes: General: No scleral icterus. Conjunctiva/sclera: Conjunctivae normal. Neck: Thyroid: No thyromegaly. Vascular: No JVD. Cardiovascular: Rate and Rhythm: Normal rate and regular rhythm. Pulmonary: Effort: Pulmonary effort is normal. No respiratory distress. Breath sounds: Normal breath sounds. No wheezing, rhonchi or rales. Abdominal: General: There is no distension. Palpations: Abdomen is soft. Tenderness: There is no abdominal tenderness. Musculoskeletal: Cervical back: No tenderness. Right lower leg: No edema. Left lower leg: No edema. Lymphadenopathy: Cervical: No cervical adenopathy. Skin: General: Skin is warm. Coloration: Skin is not jaundiced or pale. Neurological: General: No focal deficit present. Mental Status: He is alert and oriented to person, place, and time. Mental status is at baseline. Motor: Weakness present. Gait: Gait abnormal. Comments: Wheelchair bound secondary to DMD Psychiatric: Mood and Affect: Mood normal. Behavior: Behavior normal. Judgment: Judgment normal. Data: New Data Reviewed Personally By Me This Visit: TTE 04/2019: Limited study. EF grossly 35-45%, unchanged from 2018. TTE 01/2021: EF 35-45% ABG 12/2020: 7.42/34/85 Assessment and Plan: 27 y.o. M with chronic hypercapneic respiratory failure secondary to DMD 1) Chronic hypercapneic respiratory failure Patient with some AM symptoms that may suggest suboptimal gas exchange, though are extremely non-specific. Will obtain repeat measures of gas exchange (ABG, BMP, nocturnal oximetry) to better assess need for adjustment in ventilator settings. We can follow-up by phone upon completion of all of the above to solidify any changes that may need to be made. 2) Duchenne Muscular Dystrophy 3) Health Maintenance - the patient has had the influenza vaccine - the patient is not fully vaccinated for COVID-19 and has not received a booster - he is not interested though I recommend this - the patient is not a candidate for LDCT screening for lung cancer - the patient has received a PCV-20 today The patient was given instructions to return to the clinic when testing is complete. Orders Placed This Encounter Procedures Arterial Blood Stick (PFT Lab Performed) Standing Status: Future Number of Occurrences: 1 Standing Expiration Date: 06/10/2023 Order Specific Question: Release to patient in [facility] Answer: Immediate Basic metabolic panel Standing Status: Future Standing Expiration Date: 06/10/2023 Order Specific Question: Release to patient in [facility] Answer: Immediate Adult Overnight Pulse Oximetry Standing Status: Future Standing Expiration Date: 06/10/2023 I personally spent a total of 54 minutes in direct care for this patient [...] Type Priority Associated Diagnoses Orde r Schedule Arterial Blood Stick (PFT Lab Performed) Lab Routine Chronic respiratory failure with hypercapnia (CMS/HCC) 1 Occurrences starting 06/10/2022 until 06/10/2023 documented as of this encounter Procedures Procedure Name Priority Date/Time Associated Diagnosis Comments BLOOD GAS PANEL, ARTERIAL Routine 06/10/2022 1:58 PM EDT Chronic respiratory failure with hypercapnia (CMS/HCC) documented in this encounter Results * (ABNORMAL) Blood gas, arterial (06/10/2022 1:58 PM EDT) pH, Arterial 7.46(H) 7.35 - 7.45 LAB HEMATOLOGY METHOD 06/10/2022 2:18 PM EDT [facility] pCO2, Arterial 35 35 - 48 mmHg LAB HEMATOLOGY METHOD 06/10/2022 2:18 PM EDT [facility] pO2, Arterial 99 83 - 108 mmHg LAB HEMATOLOGY METHOD 06/10/2022 2:18 PM EDT [facility] SO2, Measured, Arterial 99.9(H) 94 - 98 % LAB HEMATOLOGY METHOD 06/10/2022 2:18 PM EDT [facility] FIO2 21.0 % LAB HEMATOLOGY METHOD 06/10/2022 2:18 PM EDT [facility] Base Excess, Arterial 0.8 -2 - 3 mmol/L LAB HEMATOLOGY METHOD 06/10/2022 2:18 PM EDT [facility] Bicarbonate, Calculated, Arterial 24 22 - 26 mmol/L LAB HEMATOLOGY METHOD 06/10/2022 2:18 PM EDT [facility] Hematocrit, Whole Blood 32.6(L) 40.0 - 51.0 % LAB HEMATOLOGY METHOD 06/10/2022 2:18 PM EDT [facility] Sodium, Whole Blood 139 136 - 145 mmol/L LAB HEMATOLOGY METHOD 06/10/2022 2:18 PM EDT [facility] Potassium, Whole Blood 4.2 3.6 - 4.9 mmol/L LAB HEMATOLOGY METHOD 06/10/2022 2:18 PM EDT [facility] Chloride, Whole Blood 103 97 - 107 mmol/L LAB HEMATOLOGY METHOD 06/10/2022 2:18 PM EDT [facility] Glucose, Whole Blood 97 74 - 99 mg/dL LAB HEMATOLOGY METHOD 06/10/2022 2:18 PM EDT [facility] Ionized Calcium, Whole Blood 4.9 4.6 - 5.1 mg/dL LAB HEMATOLOGY METHOD 06/10/2022 2:18 PM EDT [facility] Lactate, Arterial, Whole Blood 0.4(L) 0.5 - 1.6 mmol/L LAB HEMATOLOGY METHOD 06/10/2022 2:18 PM EDT [facility] Body Temperature 37.0 Celsius LAB HEMATOLOGY METHOD 06/10/2022 2:18 PM EDT [facility] pH, Temp Corrected, Arterial 7.46(H) 7.35 - 7.45 LAB HEMATOLOGY METHOD 06/10/2022 2:18 PM EDT [facility] pCO2, Temp Corrected, Arterial 35 35 - 48 mmHg LAB HEMATOLOGY METHOD 06/10/2022 2:18 PM EDT [facility] pO2, Temp Corrected, Arterial 99 83 - 108 mmHg LAB HEMATOLOGY METHOD 06/10/2022 2:18 PM EDT [facility] Blood Arterial blood specimen / Unknown 06/10/2022 1:58 PM EDT 06/10/2022 2:14 PM EDT Christian Aquino MD LAB BLOOD ORDERABLES Final [facility] [address] [place] [address] documented in this encounter Visit Diagnoses Diagnosis Chronic respiratory failure with hypercapnia (CMS/HCC)- Primary Ventilator dependence (CMS/HCC) Dependence on respirator, status Duchenne muscular dystrophy (CMS/HCC) Hereditary progressive muscular dystrophy Healthcare maintenance documented in this encounter Additional Health Concerns Assessment Noted Time A fall risk assessment has been complete d for the patient 06/10/2022 12:56 PM EDT documented as of this encounter Care Teams Sewing Demonstrator Relationship Specialty Start Date End Date Rhys Butts MD [address] [place] [address] PCP - General 03/02/21 documented as of this encounter
--- OUTSIDE RECORDS SUMMARY | 2024-09-29 14:26 | XMS_ITS | Encounter Summary ---
Author Organization Healthcare Address [address] [place] [address] Care Team Providers Care Fire Marshal Refinery Name Role Phone Rhys Butts MD Primary Care Provider [phone] Reason for Visit * Reason Comments Constipation Encounter Details Date Type Department Care Team (Late st Contact Info) Description 05/28/2022 1:40 PM EDT Office Visit [facility] [address] [place] [address] Dane Gabriel, PA [address] [place] [address] Chronic constipation (Primary Dx); Gastroesophageal reflux disease without esophagitis; Gastroparesis Social History Tobacco Use Types Packs/Day Years Used Date Smoking Tobacco: Never Smokeless Tobacco: Never Tobacco Cessation:Counseling Given: Not Answered Alcohol Use Standard Drinks/Week Comments No 0 (1 standard drink = 0.6 oz pur e alcohol) PHQ-2 Answer Date Recorded Patient Health Questionnaire-2 Score 0 05/28/2022 Sex and Gender Information Value Date Recorded Sex Assigned at Not on file Legal Sex Male 7:07 PM EDT Gender Identity Not on file Sexual Orientation Not on file COVID-19 Exposure Response Date Recorded In the last 10 days, have yo u been in contact with someone who was confirmed or suspected to have Coronavirus/COVID-19? No / Unsure 05/28/2022 1:22 PM EDT documented as of this encounter Last Filed Vital Signs Vital Sign Reading Time Taken Comments Blood Pressure 89/59 05/28/2022 1:28 PM EDT Pulse 66 05/28/2022 1:28 PM EDT Temperature 36.5 ??C (97.7 ??F) 05/28/2022 1:28 PM ED T Respiratory Rate - - Oxygen Saturation 92% 05/28/2022 1:28 PM EDT Inhaled Oxygen Concentration - - Weight 40.8 kg (90 lb) 05/28/2022 1:28 PM EDT Height 154.9 cm (5' 1 ) 05/28/2022 1:28 PM EDT Body Mass Index 17.01 05/28/2022 1:28 PM EDT documented in this encounter Miscellaneous Notes * Progress Notes - Dane Gabriel PA - 05/28/2022 1:40 PM EDT Subjective Patient ID: Austin Prieto is a 27 y.o. male. Chief Complaint Patient presents with Constipation Mr. 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 Since the last visit he reports that he hasbeen feeling much better. He and his mother utilized liquid stool softener through his feeding tubewhich resulted in large volume bowel movements x 2 days. Since then, bowels have been moving regularly with daily PEG. Hemorrhoids have resolved for the most part. Episode of acute onset confusion with hallucinations in August with subsequent evaluation by neurology and hospital medicine at [facility] was unremarkable. Neurology suspected acute psychotic break per mother's report.No return of symptoms since then. Mr. 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 For complete HPI from last visit please see above paragraph. Since the last visit his mother reports that she has attempted intermittent digital disimpactions and enema. Digital disimpaction produces a large amount of stool but enema only produces liquid. Dulcolax suppositories have also been ineffective. Current regimen includes liquid stool softener and senna daily. Increased bloating is reported without vomiting. He is urinating regularly. The following portions of the chart were reviewed this encounter and updated as appropriate: Tobacco Allergies Meds Problems Med Hx Surg Hx Fam Hx Review of Systems Constitutional: Negative for activity change, appetite change, chills, fatigue, fever and unexpected weight change. HENT: Negative for trouble swallowing. Gastrointestinal: Positive for abdominal distention, constipation and nausea. Negative for abdominal pain, blood in stool, diarrhea and vomiting. Skin: Negative for color change and pallor. Neurological: Negative for seizures and syncope. Psychiatric/Behavioral: Negative for agitation, behavioral problems and confusion. Objective Physical Exam Vitals and nursing note reviewed. Constitutional: General: He is not in acute distress. Appearance: Normal appearance. He is not ill-appearing or toxic-appearing. HENT: Mouth/Throat: Mouth: Mucous membranes are moist. Eyes: General: No scleral icterus. Cardiovascular: Rate and Rhythm: Normal rate and regular rhythm. Heart sounds: Normal heart sounds. No murmur heard. Pulmonary: Effort: Pulmonary effort is normal. Breath sounds: Normal breath sounds. Abdominal: General: Abdomen is flat. Bowel sounds are normal. There is distension. Palpations: Abdomen is soft. There is no mass. Tenderness: There is no abdominal tenderness. There is no guarding or rebound. Skin: General: Skin is warm and dry. Coloration: Skin is not jaundiced or pale. Neurological: Mental Status: He is alert and oriented to person, place, and time. Psychiatric: Mood and Affect: Mood normal. Behavior: Behavior normal. Assessment/Plan Problem List Items Addressed This Visit Digestive Gastroparesis GERD (gastroesophageal reflux disease) Other Visit Diagnoses Chronic constipation - Primary Relevant Orders XR Abdomen 1 View Constipation: As detailed above, Mr. Prieto has experienced gradually worsening constipation over thelast several months which has been unresponsive to liquid senna/stool softener, linzess and PEG. Wewill initiate lactulose 1 tbsp once daily to tid and may consider amitiza or trulance moving forward. We advised continued digital disimpaction/enema moving forward as needed. Considering юлия's MD we may need to consider Sitz marker study to assess colonic transit moving forward. We will arrange for single view abdominal x-ray locally at [facility] to assess stoolburden. Planned follow up in 4 months to reassess. GERD: Reflux is well controlled without PPI or H2RA. We will continue to monitor the situation moving forward. documented in this encounter Plan of Treatment Not on file documented as of this encounter Visit Diagnoses Diagnosis Chronic constipation- Primary Unspecified constipation Gastroesophageal reflux disease without esophagitis Esophageal reflux Gastroparesis documented in this encounter Additional Health Concerns Assessment Noted Time A fall risk assessment has been complete d for the patient 05/28/2022 1:37 PM EDT documented as of this encounter Care Teams Fire Marshal Refinery Relationship Specialty Start Date End Date Rhys Butts MD [address] [place] [address] PCP - General 03/02/21 documented as of this encounter
--- OUTSIDE RECORDS SUMMARY | 2024-09-29 14:26 | XMS_ITS | Encounter Summary ---
Author Organization [facility] Address [address] [place] [address] Care Team Providers Care Artificial Teeth Inspector Name Role Phone Rhys Butts MD Primary Care Provider [phone] Reason for Visit * Reason Onset Date Comments HCN - Patient Message 06/06/2021 Encounter Details Date Type Department Care Team (Late st Contact Info) Description 06/06/2021 Telephone [facility] Medicine Specialties [address] [place] [address] Rema Andres [facility] [address] [place] [address] HCN - Patient Message Social History Tobacco Use Types Packs/Day Years Used Date Smoking Tobacco: Never Alcohol Use Standard Drinks/Week Comments No 0 (1 standard drink = 0.6 oz pur e alcohol) Sex and Gender Information Value Date Recorded Sex Assigned at Not on file Legal Sex Male 7:07 PM EDT Gender Identity Not on file Sexual Orientation Not on file documented as of this encounter Miscellaneous Notes * Telephone Encounter - Vibha Mott - 06/06/2021 4:27 PM EDT I received forms and I e-mailed them you * Telephone Encounter - Vibha Mott - 06/06/2021 12:29 PM EDT I called number back and spoke with facility to let them know that we had not received any paperwork on this patient. They were sending to wrong fax #. I provided them with our fax number and they are supposed to refax. When received I will pass it along to provider. documented in this encounter Plan of Treatment Not on file documented as of this encounter Visit Diagnoses Not on filedocumented in this encounter Care Teams Artificial Teeth Inspector Relationship Specialty Start Date End Date Rhys Butts MD [address] [place] [address] PCP - General 03/02/21 documented as of this encounter
--- OUTSIDE RECORDS SUMMARY | 2024-09-29 14:26 | XMS_ITS | Encounter Summary ---
Author Organization Healthcare Address [address] [id number] Care Team Providers Care Mononitrotoluene Operator Name Role Phone Rhys Butts MD Primary Care Provider [phone] Reason for Visit * Reason Comments Follow-up Encounter Details Date Type Department Care Team (Late st Contact Info) Description 08/23/2021 3:20 PM EDT Office Visit [place] [facility] [address] [place] [address] Dane Gabriel, PA [address] [place] [address] Chronic constipation (Primary Dx) Social [...] Sign Reading Time Taken Comments Blood Pressure 97/67 08/23/2021 3:18 PM EDT Pulse 72 08/23/2021 3:18 PM EDT Temperature 37.1 ??C (98.8 ??F) 08/23/2021 3:18 PM ED T Respiratory Rate - - Oxygen Saturation - - Inhaled Oxygen Concentration - - Weight 41.3 kg (91 lb) 08/23/2021 3:18 PM EDT Height - - Body Mass Index 17.19 10/05/2020 3:06 PM EST documented in this encounter Miscellaneous Notes * Progress Notes - Dane Gabriel PA - 08/23/2021 3:20 PM EDT Telehealth Visit Subjective Patient ID: Austin Prieto is a 26 y.o. male. Chief Complaint Patient presents with ??? Follow-up Mr. Prieto is 25 year old male seen in follow up today for chronic reflux, constipation andgastroparesis. Since the last visit he was prescribed linzess for worsening constipation that was unresponsive to PEG. Insurance initially denied linzess and PA was required. Medication was filled yesterday and Mr. Montez had his first dose then. Large liquid bowel movement yesterday after first dose and two semi formed bms today after second dose. Immediate relief of abdominal bloating reported. Adequate reflux control with current dose of 40 mg esomeprazole qam and prn 20 mg famotidine. He denies any fever, chills, night sweats, lymphadenopathy, dysphagia, odynophagia, jaundice, icterus, melena, hematochezia, hematemesis, change in appetite, unintentional weight loss or abdominal mass. 14 point ROS negative save for that mentioned previously in HPI. Mr. Prieto is a 26 year old male seen in follow up today for chronic reflux, constipation and gastroparesis. For complete HPI from last visit please see above paragraph. Since the last visit he reports that he has been experiencing lower abdominal cramping/bloating with occasional radiationinto his rectum/anus. Mother reports internal hemorrhoids are visible when wiping. No hematochezia reported. He was compliant with 145 mcg linzess daily for several weeks. At first, this was working rather well and regulating his bowel movements excellently. He began to experience excessive diarrhea, however, and discontinued this medication. Bowels are currently moving daily and range in consistency from paste like to hard/dry pellets. No vomiting or change in appetite reported. Abdominal Pain This is a recurrent problem. The current episode started more than 1 year ago. The onset quality issudden. The problem occurs every several days. The most recent episode lasted 1 weeks. The problem has been unchanged. The pain is located in the generalized abdominal region. The pain is at a severity of 6/10. The quality of the pain is cramping. The abdominal pain radiates to the LLQ, RLQ, perineum and scrotum. Associated symptoms include arthralgias, belching, constipation, dysuria, flatus andnausea. Pertinent negatives include no diarrhea, fever, frequency, headaches, hematochezia, hematuria, melena, myalgias, vomiting or weight loss. The pain is aggravated by bowel movement. The pain isrelieved by passing flatus. The following portions of the chart were reviewed this encounter and updated as appropriate: Tobacco Allergies Meds Problems Med Hx Surg Hx Fam Hx Review of Systems Constitutional: Negative for activity change, chills, fever, unexpected weight change and weight loss. HENT: Negative for trouble swallowing. Respiratory: Negative for shortness of breath. Cardiovascular: Negative for chest pain. Gastrointestinal: Positive for abdominal pain, constipation, flatus and nausea. Negative for diarrhea, hematochezia, melena and vomiting. Genitourinary: Positive for dysuria. Negative for frequency and hematuria. Musculoskeletal: Positive for arthralgias. Negative for myalgias. Skin: Negative for color change and pallor. Neurological: Negative for seizures, syncope and headaches. Psychiatric/Behavioral: Negative for agitation, behavioral problems and confusion. Objective Physical Exam Constitutional: General: He is not in acute distress. Appearance: He is ill-appearing. He is not toxic-appearing. HENT: Mouth/Throat: Mouth: Mucous membranes are moist. Pulmonary: Effort: Pulmonary effort is normal. Skin: General: Skin is dry. Coloration: Skin is not jaundiced or pale. Neurological: Mental Status: He is alert and oriented to person, place, and time. Psychiatric: Mood and Affect: Mood normal. Behavior: Behavior normal. Assessment/Plan Diagnoses and all orders for this visit: Chronic constipation Other orders - docusate (Colace) 50 MG/5ML liquid; 10 mL (100 mg total) by Per G Tube route 1 (one) time each day. Chronic constipation: Mr. Prieto reports that he was doing quite well with 145 mcg linzess daily for a few months but had to discontinue this as it was causing excessive diarrhea and cramping. Over thelast few months he has had his dose of baclofen and hydrocodone increased by pain management. Stoolhas become more dry and pellet like. He is reporting increased lower abdominal pain/bloating which c an radiate into his rectum. Mother has noticed an internal/external hemorrhoid when she wipes him. We will initiate liquid stool softener through the feeding tube once daily. If stool is not softer after a few days we advised increased h20 intake. We may consider restarting linzess at diminished dose of 72 mcg either daily or every other day. Planned follow up in 4 months to reassess. Telehealth Statement Patient Verification Patient identity has been confirmed using name and date of ? Yes Authorizations and Agreements/Telemedicine Consent sent and consent confirmed? Yes Patient Location: Patient's Home Patient confirms they are physically located in [place]? Yes If the patient is not physically located in [place], the provider has confirmed with Legal thatthe provider is authorized to provide services in patient's stated location? Yes Provider Location: HealthCare Facility Audio and video or audio only? Audio and video Total visit time: 30 minutes documented in this encounter Plan of Treatment Not on file documented as of this encounter Visit Diagnoses Diagnosis Chronic constipation- Primary Unspecified constipation documented in this encounter Additional Health Concerns Assessment Noted Time A fall risk assessment has been complete d for the patient 08/23/2021 3:23 PM EDT documented as of this encounter Care Teams Mononitrotoluene Operator Relationship Specialty Start Date End Date Rhys Butts MD [address] [place] [address] PCP - General 03/02/21 documented as of this encounter
--- OUTSIDE RECORDS SUMMARY | 2024-09-29 14:26 | XMS_ITS | Encounter Summary ---
Author Organization Healthcare Address [address] [place] [address] Care Team Providers Care Hot Dimpling Machine Operator Name Role Phone Rhys Butts MD Primary Care Provider [phone] Reason for Visit * Reason Onset Date Comments Med Refill 06/10/2022 Encounter Details Date Type Department Care Team (Late st Contact Info) Description 06/10/2022 Refill [place] [facility] [address] [place] [address] Dane Gabriel, PA [address] [place] [address] Social History Tobacco Use Types [...] suspected to have Coronavirus/COVID-19? No / Unsure 06/06/2022 12:02 PM EDT documented as of this encounter Plan of Treatment Not on file documented as of this encounter Visit Diagnoses Not on filedocumented in this encounter Additional Health Concerns Assessment Noted Time A fall risk assessment has been complete d for the patient 06/10/2022 12:56 PM EDT documented as of this encounter Care Teams Hot Dimpling Machine Operator Relationship Specialty Start Date End Date Rhys Butts MD [address] [place] [address] PCP - General 03/02/21 documented as of this encounter
--- OUTSIDE RECORDS SUMMARY | 2024-09-29 14:26 | XMS_ITS | Encounter Summary ---
Author Organization Healthcare Address [address] [place] [address] Care Team Providers Care Mounter Brass [employer] Instruments Name Role Phone Rhys Butts MD Primary Care Provider [phone] Encounter Details Date Type Department Care Team (Latest Contact Info) Description 05/28/2022 Travel Social History Tobacco Use Types Packs/Day [...] documented as of this encounter Care Teams Mounter [employer] Relationship Specialty Start Date End Date Rhys Butts MD [address] [place] [address] PCP - General 03/02/21 documented as of this encounter
--- OUTSIDE RECORDS SUMMARY | 2024-09-29 14:26 | XMS_ITS | Encounter Summary ---
Author Organization Healthcare Address [address] [place] [address] Care Team Providers Care Nursing Executive Name Role Phone Unavailable Primary Care Provider Unavailabl e Encounter Details Date Type Department Care Team ([facility] st Contact Info) Description 04/14/2017 [facility] Vitals Encounter [facility] OUTPATIENT CONVERSIONS [address] [place] [address] Provider, MD Dat [address] [place] [address] Social History Tobacco Use Types Packs/Day [...] - Inhaled Oxygen Concentration - - Weight - - Height 154.9 cm (5' 1 ) 04/14/2017 10:49 AM EDT Body Mass Index - - documented in this encounter Plan of Treatment Not on file documented as of this encounter Visit Diagnoses Not on filedocumented in this encounter
--- OUTSIDE RECORDS SUMMARY | 2024-09-29 14:26 | XMS_ITS | Encounter Summary ---
Author Organization Healthcare Address [address] [place] [address] Care Team Providers Care Wedger Machine Name Role Phone Unavailable Primary Care Provider Unavailabl e Encounter Details Date Type Department Care Team ([facility] st Contact Info) Description 08/21/2016 Legacy AEHR Vitals Encounter [facility] OUTPATIENT CONVERSIONS [address] [place] [address] Provider, MD Dat [address] [place] [address] Social History Tobacco Use Types Packs/Day [...] - Inhaled Oxygen Concentration - - Weight 40.4 kg (89 lb 2.1 oz) 08/21/2016 2:33 PM EDT Height 154.9 cm (5' 1 ) 08/21/2016 2:33 PM EDT Body Mass Index 16.84 08/21/2016 2:33 PM EDT documented in this encounter Plan of Treatment Not on file documented as of this encounter Visit Diagnoses Not on filedocumented in this encounter
--- OUTSIDE RECORDS SUMMARY | 2024-09-29 14:26 | XMS_ITS | Encounter Summary ---
Author Organization Healthcare Address [address] [place] [address] Care Team Providers Care Ux Manager Name Role Phone Unavailable Primary Care Provider Unavailabl e Encounter Details Date Type Department Care Team ([facility] st Contact Info) Description 10/04/2015 [facility] AEHR Vitals Encounter [facility] OUTPATIENT CONVERSIONS [address] [place] [address] Provider, MD Dat [address] [place] [address] Social History Tobacco Use Types Packs/Day [...] Weight 39.5 kg (86 lb 15.9 oz) 10/04/2015 9:01 A M EST Height 154.9 cm (5' 1 ) 10/04/2015 9:01 AM EST Body Mass Index 16.44 10/04/2015 9:01 AM EST documented in this encounter Plan of Treatment Not on file documented as of this encounter Visit Diagnoses Not on filedocumented in this encounter
--- OUTSIDE RECORDS SUMMARY | 2024-09-29 14:26 | XMS_ITS | Encounter Summary ---
Author Organization Healthcare Address [address] [place] [address] Care Team Providers Care Belt Molder Name Role Phone Rhys Butts MD Primary Care Provider Encounter Details Date Type Department Care Team (Latest Contact Info) Description 06/10/2022 Travel Social History Tobacco Use Types Packs/Day [...] documented as of this encounter Care Teams Belt Molder Relationship Specialty Start Date End Date Rhys Butts MD [address] [place] [address] PCP - General 03/02/21 documented as of this encounter
--- OUTSIDE RECORDS SUMMARY | 2024-09-29 14:26 | XMS_ITS | Encounter Summary ---
Author Organization Healthcare Address [address] [id number] Care Team Providers Care Reduction Plant Supervisor Name Role Phone Rhys Butts MD Primary Care Provider Encounter Details Date Type Department Care Team (Late st Contact Info) Description 12/23/2022 2:00 PM EST [facility] Visit [facility] [address] [place] [address] Christian Aquino MD [address] [place] [address] Chronic respiratory failure with hypercapnia [...] Progress Notes - Christian Aquino MD - 12/23/2022 2:00 PM EST Austin Prieto is a 27 y.o. male who presents for ongoing management to pulmonary outpatient clinic. Chief complaint: Follow-up Duchenne Muscular Dystrophy Telehealth Statement: Patient Verification Patient identity has been confirmed using name and date of ? Yes Authorizations and Agreements/Telemedicine Consent sent and consent confirmed? Yes Patient Location: Patient's Home Patient confirms they are physically located in [place]? Yes If the patient is not physically located in [place], the provider has confirmed with Legal thatthe provider is authorized to provide services in patient's stated location? N/A Provider Location: HealthCare Facility Audio and video or audio only? Audio and video Total visit time: 42 minutes HPI: 27 YO M with DMD seen by me as a new consult 05/2022 for management of his chronic mixed respiratoryfailure. Trilogy Ventilator: AVAPS-AE, TV 400, pressure 15/6, back up rate 5, intrinsic RR approximately 18,max pressure 30 cm H2O Chair mode vent: AC, TV 700, Ti 1.2 He uses a cough assist device that he is compliant with, and has previously utilized nebulized ICS and LABA therapy, which did not provide substantial benefit. His last respiratory related hospitalization was around 2014, and last PNA that was managed in the outpatient setting was around 2019. Plan at initial visit was to obtain ABG, BMP, and nocturnal oximetry to better assess adequacy of oxygenation and ventilation. Venipuncture was unsuccessful, and family was never contacted for nocturnal oximetry. ABG was unremarkable. Patient reports that he is generally doing well. He notes a brief feeling of dyspnea in the morningupon awakening that is relieved by getting up. He does not have any dyspnea while sleeping or nocturnal awakenings for dyspnea. No significant secretions or change in sputum character. Answers submitted by the patient for this visit: Pulmonology Questionnaire (Submitted on 12/23/2022) Chief Complaint: Primary symptoms Chronicity: recurrent When did you first notice your symptoms?: more than 1 year ago How often do your symptoms occur?: daily Since you first noticed this problem, how has it changed?: unchanged Do you have shortness of breath when you wake up?: Yes Which of the following makes your symptoms worse?: nothing Which of the following makes your symptoms better?: nothing Past Medical History: Diagnosis Date Failure to [...] GASTROSTOMY TUBE PLACEMENT N/A Feeding Tube from [employer] TYMPANOSTOMY TUBE PLACEMENT N/A Ear Pressure Equalization Tube, Insertion, Bilaterally from [employer] No family history on file. Social History Socioeconomic History Marital status: Single [...] Positive for shortness of breath. Negative for cough and wheezing. Cardiovascular: Negative for chest pain and palpitations. Objective: Physical Exam: There were no vitals taken for this visit. Physical Exam Constitutional: General: He is not in acute distress. Neurological: Mental Status: He is alert and oriented to person, place, and time. Mental status is at baseline. Limited exam performed due to limitations of telehealth modality. Data: New Data Reviewed Personally By Me This Visit: ABG 06/10/2022: 7.4635 Historical Data (personally re-reviewed by me today): TTE 04/2019: Limited study. EF grossly 35-45%, unchanged from 2018. TTE 01/2021: EF 35-45% ABG 12/2020: 7.42/34/85 Assessment and Plan: 27 y.o. M with: 1) Chronic hypercapneic respiratory failure Patient with [...] 2) Duchenne Muscular Dystrophy - as above ) Health Maintenance - the patient has had the influenza vaccine - the patient is not fully vaccinated for COVID-19 and has not received a booster; this was recommended today - the patient is not a candidate for LDCT screening for lung cancer - the patient has received appropriate vaccination for pneumococcal disease and vaccination does not need to be repeated The patient was given instructions to return to the clinic when testing is complete. Orders Placed This Encounter Procedures Adult Overnight Pulse Oximetry Standing Status: Future Standing Expiration Date: 12/24/2023 Order Specific Question: Performing Instructions: Answer: DME is Angeline. Please perform nocturnal oximetry to assess adequacy of ventilator settings. I personally spent a total of 42 minutes in direct care for this patient on the date of service. This time was spent on review of the chart, discussion with other providers, review of notes written by other providers, personal review of images and results of studies, history taking and review, review of systems, discussion with the patient, care planning and coordination, and the making of medical orders. Addendum 03/26/2023: I was asked to comment [...] within 30 days of planned surgery date documented in this encounter Plan of Treatment [...] documented as of this encounter Care Teams Reduction Plant Supervisor Relationship Specialty Start Date End Date Rhys Butts MD [facility] [place] [place] [address] PCP - General 03/02/21 documented as of this encounter
--- OUTSIDE RECORDS SUMMARY | 2024-09-29 14:26 | XMS_ITS | Encounter Summary ---
Author Organization Healthcare Address [address] [place] [address] Care Team Providers Care Metal Stamping Machine Operator Name Role Phone Rhys Butts MD Primary Care Provider [phone] Reason for Referral * Consultation (Routine) - Closed Specialty Diagnoses / Procedures Referred By Contac t Referred To Contact Colon and Rectal Surgery Diagnoses Chronic constipation Duchenne's muscular dystrophy (CMS/HCC) [facility] Medicine Specialties [address] [place] [address] Phone: tel: fax: COLORECTAL SURGERY [address] [place] [address] Phone: tel: Referral ID Status Reason Start Date Expiration Date V isits Requested Visits Authorized [id number] Closed Specialty Services Required 01/07/2023 07/08/2024 1 1 Encounter Details Date Type Department Care Team (Late st Contact Info) Description 01/07/2023 Orders Only [facility] Medicine Specialties [address] [place] [address] Dane Gabriel PA [address] [place] [address] Chronic constipation (Primary Dx); Duchenne's muscular dystrophy (CMS/HCC) Social History Tobacco [...] Progress Notes - Dane Gabriel PA - 01/07/2023 5:51 PM EDT Reglan 10 mg twice daily failed to produce any improvement in bowel emptying. Abdominal x-ray from 01/06 documented large amount of retained stool in approximately 11 cm rectum. Mother is using enemaswith production of some small amount of solid stool but is frustrated with progress. We will initiate bid mag citrate infusion through PEG (148 ml twice daily) and if no improvement after 24 hours wewill proceed to full miralax bowel prep through feeding tube on the following day. We have also arrange for referral to colorectal to consider colostomy placement considering duchenne's muscular dystrophy with worsening stool retention. Austin is unable to swallow sitz marker and cannot produce for ceful bowel movement for MR defacography due to lack of sensation. documented in this encounter Plan of Treatment Scheduled Referrals Name Type Priority Associated Diagnoses Order Schedule Ambulatory referral to Colorectal Surgery Outpatient Referral Routine Chronic constipation Duchenne's muscular dystrophy (CMS/HCC) 1 Occurrences starting 01/07/2023 until 07/10/2024 documented as of this encounter Visit Diagnoses Diagnosis Chronic constipation- Primary Unspecified constipation Duchenne's muscular dystrophy (CMS/HCC) Hereditary progressive muscular dystrophy documented in this encounter Additional Health Concerns Assessment Noted Time A fall risk assessment has been complete d for the patient 12/18/2022 12:57 PM EST documented as of this encounter Care Teams Metal Stamping Machine Operator Relationship Specialty Start Date End Date Rhys Butts MD [address] [place] [address] PCP - General 03/02/21 documented as of this encounter
--- OUTSIDE RECORDS SUMMARY | 2024-09-29 14:26 | XMS_ITS | Encounter Summary ---
Author Organization Healthcare Address [address] [id number] Care Team Providers Care Digital Solution Architect Name Role Phone Rhys Butts MD Primary Care Provider [phone] Encounter Details Date Type Department Care Team (Late st Contact Info) Description 06/06/2022 Orders Only [facility] Medicine Specialties [address] [place] [address] Dane Gabriel PA [address] [place] [address] Social History Tobacco Use [...] Progress Notes - Dane Gabriel PA - 06/06/2022 12:41 PM EDT I spoke with Mr. Prieto's mother Carissa Cavanaugh. They have been compliant with lactulose for the past 8 days with no significant increase in stool production. Mother continues to use enemas and digital disimpaction to clear stool. Abdominal x-ray from 06/04 at [facility] showed rectal stool impaction without any colonic/intestinal dilation or pneumoperitoneum. We advised discontinuation of lactulose and will replace with 3 mg trulance per G-tube once daily. E-script sent to [facility] in [place]. documented in this encounter Plan of Treatment Not on file documented as of this encounter Visit Diagnoses Not on filedocumented in this encounter Additional Health Concerns Assessment Noted Time A fall risk assessment has been complete d for the patient 05/28/2022 1:37 PM EDT documented as of this encounter Care Teams Digital Solution Architect Relationship Specialty Start Date End Date Rhys Butts MD [address] [place] [address] PCP - General 03/02/21 documented as of this encounter
--- OUTSIDE RECORDS SUMMARY | 2024-09-29 14:26 | XMS_ITS | Encounter Summary ---
Author Organization Healthcare Address [address] [place] [address] Care Team Providers Care Slubber Frame Changer Name Role Phone Rhys Butts MD Primary Care Provider [phone] Encounter Details Date Type Department Care Team (Latest Contact Info) Description 06/06/2022 Travel Social History Tobacco Use Types Packs/Day [...] documented as of this encounter Care Teams Slubber Frame Changer Relationship Specialty Start Date End Date Rhys Butts MD [address] [place] [address] PCP - General 03/02/21 documented as of this encounter
--- OUTSIDE RECORDS SUMMARY | 2024-09-29 14:26 | XMS_ITS | Encounter Summary ---
Author Organization Healthcare Address [address] [place] [address] Care Team Providers Care State Historical Society Director Name Role Phone Rhys Butts MD Primary Care Provider [phone] Encounter Details Date Type Department Care Team (Late st Contact Info) Description 06/10/2022 Orders Only [facility] Medicine Specialties [address] [place] [address] Dane Gabriel PA [address] [place] [address] Social History Tobacco Use Types [...] Progress Notes - Dane Gabriel PA - 06/10/2022 12:01 PM EDT Insurance company denied coverage of trulance. They preferred either movantik or amitiza. We will initiate movantik 25 mg tablet, crushed once daily through PEG tube. If this proves ineffective, we will attempt PA on trulance. documented in this encounter Plan of Treatment Not on file documented as of this encounter Visit Diagnoses Not on filedocumented in this encounter Additional Health Concerns Assessment Noted Time A fall risk assessment has been complete d for the patient 06/10/2022 12:56 PM EDT documented as of this encounter Care Teams State Historical Society Director Relationship Specialty Start Date End Date Rhys Butts MD [address] [place] [address] PCP - General 03/02/21 documented as of this encounter
--- OUTSIDE RECORDS SUMMARY | 2024-09-29 14:26 | XMS_ITS | Encounter Summary ---
Author Organization Healthcare Address [address] [place] [address] Care Team Providers Care Human Capital Analyst Name Role Phone Rhys Butts MD Primary Care Provider [phone] Reason for Visit * Reason Onset Date Comments Returning Call 06/11/2021 Encounter Details Date Type Department Care Team (Late st Contact Info) Description 06/11/[address] [facility] Medicine Specialties [address], [address] [place] [address] Asuncion [place] Returning Call Social History Tobacco Use Types Packs/Day Years [...] Telephone Encounter - Dane Gabriel PA - 06/15/2021 9:33 AM EDT I spoke with Mrs. Prieto and all paperwork has been completed and faxed. thanks documented in this encounter Plan of Treatment Not on file documented as of this encounter Visit Diagnoses Not on filedocumented in this encounter Care Teams Human Capital Analyst Relationship Specialty Start Date End Date Rhys Butts MD [address] [place] [address] PCP - General 03/02/21 documented as of this encounter
--- OUTSIDE RECORDS SUMMARY | 2024-09-29 14:26 | XMS_ITS | Encounter Summary ---
Author Organization [facility] Address [address] [place] [address] Care Team Providers Care Bulk Filler Name Role Phone Rhys Butts MD Primary Care Provider [phone] Reason for Visit * Reason Onset Date Comments Appointment 11/19/2022 Encounter Details Date Type Department Care Team (Late st Contact Info) Description 11/19/2022 Telephone [facility] Medicine Specialties [address] [place] [address] Yelena Hicks [facility] [address] [id number] Appointment Social History Tobacco Use Types Packs/Day Years [...] encounter Miscellaneous Notes * Telephone Encounter - Yelena Hicks - 11/19/2022 5:38 PM EST Called and spoke with patient's mother Carissa. Per Epic chat with provider on 11/19/22 at 4:39p,raymond approved OB via at first available 12:40 spot with patient. Called patient, patient verbalized understanding of appointment date and time. documented in this encounter Plan of Treatment Not on file documented as of this encounter Visit Diagnoses Not on filedocumented in this encounter Additional Health Concerns Assessment Noted Time A fall risk assessment has been complete d for the patient 06/10/2022 12:56 PM EDT documented as of this encounter Care Teams Bulk Filler Relationship Specialty Start Date End Date Rhys Butts MD [address] [place] [address] PCP - General 03/02/21 documented as of this encounter
--- OUTSIDE RECORDS SUMMARY | 2024-09-29 14:26 | XMS_ITS | Encounter Summary ---
Author Organization Healthcare Address [address] [place] [address] Care Team Providers Care Trains Service Conductor Name Role Phone Rhys Butts MD Primary Care Provider [phone] Reason for Visit * Reason Comments Follow-up no new issues Encounter Details Date Type Department Care Team (Late st Contact Info) Description 12/26/2021 3:00 PM EST Office Visit [place] [facility] Medicine [facility] [address] [place] [address] Dane Gabriel, PA [address] [place] [address] Chronic constipation (Primary Dx); Gastroesophageal reflux disease without esophagitis Social History Tobacco Use Types Packs/Day Years Used Date Smoking Tobacco: Never Smokeless Tobacco: Never Tobacco Cessation:Counseling Given: No Alcohol Use Standard Drinks/Week Comments No 0 [...] Sign Reading Time Taken Comments Blood Pressure 76/55 12/26/2021 2:56 PM EST Pulse 84 12/26/2021 2:56 PM EST Temperature 37.1 ??C (98.8 ??F) 12/26/2021 2:56 PM ES T Respiratory Rate - - Oxygen Saturation - - Inhaled Oxygen Concentration - - Weight 41.3 kg (91 lb) 12/26/2021 2:56 PM EST Height 154.9 cm (5' 1 ) 12/26/2021 2:56 PM EST Body Mass Index 17.19 12/26/2021 2:56 PM EST documented in this encounter Miscellaneous Notes * Progress Notes - Dane Gabriel PA - 12/26/2021 3:00 PM EST Telehealth Visit Subjective Patient ID: Austin Prieto is a 26 y.o. male. Chief Complaint Patient presents with ??? Follow-up no new issues Mr. Prieto is a 26 year old male seen in follow up today for chronic reflux, constipation and gastroparesis. Since the last visit he reports that he has been experiencing lower abdominal cramping/bloating with occasional radiation into his rectum/anus. Mother reports internal hemorrhoids are [...] No vomiting or change in appetite reported. Mr. Prieto is a 26 year old [...] evaluation by neurology and hospital medicine at [facility] was unremarkable. Neurology suspected acute psychotic break per mother's report.No return of symptoms since then. Abdominal Pain This is a recurrent problem. The current episode started more than 1 year ago. The onset quality isundetermined. The problem occurs intermittently. The problem has been rapidly improving. The pain is located in the suprapubic region. The pain is at a severity of 0/10. The quality of the pain is cramping. Pertinent negatives include no anorexia, arthralgias, belching, constipation, diarrhea, dysuria, fever, flatus, frequency, headaches, hematochezia, hematuria, melena, myalgias, nausea, vomiting or weight loss. Nothing aggravates the pain. The pain is relieved by bowel movements. The following portions of the chart were reviewed this encounter and updated as appropriate: Review of Systems Constitutional: Negative for activity change, appetite change, chills, fatigue, fever, unexpected weight change and weight loss. HENT: Negative for trouble swallowing. Respiratory: Negative for shortness of breath. Cardiovascular: Negative for chest pain. Gastrointestinal: Positive for abdominal pain. Negative for anorexia, constipation, diarrhea, flatus, hematochezia, melena, nausea and vomiting. Genitourinary: Negative for dysuria, frequency and hematuria. Musculoskeletal: Negative for arthralgias and myalgias. Skin: Negative for color change and pallor. Neurological: Negative for seizures and headaches. Psychiatric/Behavioral: Negative for agitation, behavioral problems and confusion. Objective Physical Exam Vitals and nursing note reviewed. Constitutional: Appearance: Normal appearance. HENT: Mouth/Throat: Mouth: Mucous membranes are moist. Eyes: General: No scleral icterus. Skin: General: Skin is dry. Coloration: Skin is not jaundiced or pale. Neurological: Mental Status: He is alert and oriented to person, place, and time. Psychiatric: Mood and Affect: Mood normal. Behavior: Behavior normal. Assessment/Plan Diagnoses and all orders for this visit: Chronic constipation Gastroesophageal reflux disease without esophagitis Other orders - esomeprazole (NexIUM) 40 MG packet; Take 1 packet (40 mg total) by mouth 1 (one) time each day before breakfast. Constipation: Austin and his mother report that within 24 hours of infusing liquid stool softener into his feeding tube he began to experience large volume semi formed stools. They discontinued stool softener after 2 or 3 days and report that since then his stools have been semi formed and moving once daily on once daily PEG. Hemorrhoids are improved as well. We have encouraged continuation of daily PEG regimen along with prn liquid stool softener moving forward. GERD: Reflux is adequately controlled on current dose of 40 mg esomeprazole qam. He has not needed famotidine for breakthrough reflux over the last several months. We have encouraged continuation. Planned follow up in 6 months to reassess. Telehealth Statement Patient Verification Patient identity has been confirmed using name and date of ? Yes Authorizations and Agreements/Telemedicine Consent sent and consent confirmed? Yes Patient Location: Patient's Home Patient confirms they are physically located in [place]? Yes If the patient is not physically located in [place], the provider has confirmed with Legal thatthe provider is authorized to provide services in patient's stated location? Yes Provider Location: [facility] Audio and video or audio only? [...] documented as of this encounter Care Teams Trains Service Conductor Relationship Specialty Start Date End Date Rhys Butts MD [address] [place] [address] PCP - General 03/02/21 documented as of this encounter
--- OUTSIDE RECORDS SUMMARY | 2024-09-29 14:26 | XMS_ITS | Encounter Summary ---
Author Organization Healthcare Address [address] [place] [address] Care Team Providers Care Home Health Manager Name Role Phone Unavailable Primary Care Provider Unavailabl e Encounter Details Date Type Department Care Team ([facility] st Contact Info) Description 05/20/2017 Legacy AEHR Vitals Encounter [facility] OUTPATIENT CONVERSIONS [address] [place] [address] Provider, MD Dat [address] [place] [address] Social History Tobacco Use Types Packs/Day [...] Weight 40.8 kg (89 lb 15.9 oz) 05/20/2017 1:52 P M EDT Height 154.9 cm (5' 1 ) 05/20/2017 1:52 PM EDT Body Mass Index 17 05/20/2017 1:52 PM EDT documented in this encounter Plan of Treatment Not on file documented as of this encounter Visit Diagnoses Not on filedocumented in this encounter
--- OUTSIDE RECORDS SUMMARY | 2024-09-29 14:26 | XMS_ITS | Encounter Summary ---
Author Organization Healthcare Address [address] [place] [address] Care Team Providers Care Channel Marketing Coordinator Name Role Phone Unavailable Primary Care Provider Unavailabl e Encounter Details Date Type Department Care Team ([facility] st Contact Info) Description 10/25/2015 Legacy AEHR Vitals Encounter [facility] OUTPATIENT CONVERSIONS [address] [place] [address] Provider, MD Dat [address] [place] [address] Social History Tobacco Use Types Packs/Day [...] Weight 39.5 kg (86 lb 15.9 oz) 10/25/2015 9:07 A M EST Height 154.9 cm (5' 1 ) 10/25/2015 9:07 AM EST Body Mass Index 16.44 10/25/2015 9:07 AM EST documented in this encounter Plan of Treatment Not on file documented as of this encounter Visit Diagnoses Not on filedocumented in this encounter
--- OUTSIDE RECORDS SUMMARY | 2024-09-29 14:26 | XMS_ITS | Encounter Summary ---
Author Organization Healthcare Address [address] [place] [address] Care Team Providers Care Last Waxer Name Role Phone Rhys Butts MD Primary Care Provider [phone] Encounter Details Date Type Department Care Team (Latest Contact Info) Description 12/26/2021 Travel Social History Tobacco Use Types Packs/Day [...] documented as of this encounter Care Teams Last Waxer Relationship Specialty Start Date End Date Rhys Butts MD [address] [facility] [place] [address] PCP - General 03/02/21 documented as of this encounter
--- OUTSIDE RECORDS SUMMARY | 2024-09-29 14:26 | XMS_ITS | Encounter Summary ---
Author Organization Healthcare Address [address] [id number] Care Team Providers Care Fats And Oils Loader Name Role Phone Rhys Butts MD Primary Care Provider [phone] Encounter Details Date Type Department Care Team (Latest Contact Info) Description 08/22/2021 Travel Social History Tobacco Use Types Packs/Day [...] on filedocumented in this encounter Care Teams Fats And Oils Loader Relationship Specialty Start Date End Date Rhys Butts MD [address] [place] [address] PCP - General 03/02/21 documented as of this encounter
--- OUTSIDE RECORDS SUMMARY | 2024-09-29 14:26 | XMS_ITS | Encounter Summary ---
Author Organization Healthcare Address [address] [place] [address] Care Team Providers Care Title Department Manager Name Role Phone Unavailable Primary Care Provider Unavailabl e Encounter Details Date Type Department Care Team ([facility] st Contact Info) Description 06/04/2017 [facility] Vitals Encounter [facility] OUTPATIENT CONVERSIONS [address] [place] [address] Provider, MD Dat [address] [place] [address] Social History Tobacco Use Types Packs/Day [...] Weight 40.8 kg (89 lb 15.9 oz) 06/04/2017 2:16 P M EDT Height 154.9 cm (5' 1 ) 06/04/2017 2:16 PM EDT Body Mass Index 17 06/04/2017 2:16 PM EDT documented in this encounter Plan of Treatment Not on file documented as of this encounter Visit Diagnoses Not on filedocumented in this encounter
--- OUTSIDE RECORDS SUMMARY | 2024-09-29 14:26 | XMS_ITS | Encounter Summary ---
Author Organization Healthcare Address [address] [place] [address] Care Team Providers Care Shoe Salesman Name Role Phone Rhys Butts MD Primary Care Provider [phone] Reason for Visit * Reason Onset Date Comments Prior Auth 06/06/2022 Encounter Details Date Type Department Care Team (Late st Contact Info) Description 06/06/2022 Telephone [facility] [address] [place] [address] Vibha Mott, [facility] Prior Auth Social History Tobacco Use Types Packs/Day Years [...] encounter Miscellaneous Notes * Telephone Encounter - Kenny Valle - 06/11/2022 12:00 PM EDT Just want to follow up as we received a faxed document regarding the appeal Appeal for Trulance 3mg is approved from 06/10/22 - 06/10/23 Called pharmacy and confirmed paid claim, they said they will have to order it so it should be ready for pickup sometime tomorrow * Telephone Encounter - Vibha Mott RN - 06/10/2022 1:26 PM EDT Urgent appeal request submitted via fax to [phone] * Telephone Encounter - Kenny Valle - 06/06/2022 3:19 PM EDT Prior authorization was denied by insurance due to not being a preferred drug. Insurance prefers Amitiza or Movantik ([place] still required) If an alternative is sent in please let us know so we may work on the auth for that drug Denial letter uploaded to patient chart via [employer]. Please refer to attachment for more details. * Telephone Encounter - Kenny Valle - 06/06/2022 2:15 PM EDT [facility] Tr[facility]MG tablets [facility] [place]: [id number] * Telephone Encounter - Vibha Mott RN - 06/06/2022 1:06 PM EDT Fax [place] request Trulance 3mg documented in this encounter Plan of Treatment Not on file documented as of this encounter Visit Diagnoses Not on filedocumented in this encounter Additional Health Concerns Assessment Noted Time A fall risk assessment has been complete d for the patient 05/28/2022 1:37 PM EDT documented as of this encounter Care Teams Shoe Salesman Relationship Specialty Start Date End Date Rhys Butts MD [facility] [place] [address] PCP - General 03/02/21 documented as of this encounter
--- OUTSIDE RECORDS SUMMARY | 2024-09-29 14:26 | XMS_ITS | Encounter Summary ---
Author Organization Healthcare Address [address] [place] [address] Care Team Providers Care Mink Slicer Name Role Phone Unavailable Primary Care Provider Unavailabl e Encounter Details Date Type Department Care Team ([facility] st Contact Info) Description 07/14/2015 [facility] Vitals Encounter [facility] OUTPATIENT CONVERSIONS [address] [place] [address] Provider, MD Dat [address] [place] [address] Social History Tobacco Use Types Packs/Day [...] Weight 39.5 kg (86 lb 15.9 oz) 07/14/2015 10:28 AM EDT Height 154.9 cm (5' 1 ) 07/14/2015 10:28 AM EDT Body Mass Index 16.44 07/14/2015 10:28 AM EDT documented in this encounter Plan of Treatment Not on file documented as of this encounter Visit Diagnoses Not on filedocumented in this encounter
== END 2024-09-29 23:59 | disposition home or self-care (01) ==
LOC: RT 14:22
PROVIDERS: PCP Family Medicine; Visit Provider Physician Assistant
DX: H93.8X1 Other specified disorders of right ear (principal); G71.01 Duchenne or Becker muscular dystrophy; R00.2 Palpitations
CPT/HCPCS: 93880